=== PATIENT | female | born 1940 | race Caucasian/White ===

== ENCOUNTER 2020-12-09 23:25 | Observation (INO) ==
[2020-12-10] MEDS ORDERED: ONDANSETRON INJ 2 MG/ML 2 ML VIAL IV STA (01:04)
[2020-12-10 01:13] LABS: Basophils # (auto) 0.02 K/uL (0-0.2); Basophils % (auto) 0.3 %; Eosinophils # (auto) 0.13 K/uL (0-0.5); Eosinophils % (auto) 2.1 %; Hematocrit (blood only) 44.7 % (37-47); Lymphocytes # (auto) 2.88 K/uL (1.2-3.4); Mean Corpuscular Hemoglobin 29.9 pg (25-34); Mean Corpuscular Hgb Conc 33.6 g/dL (32-36); Mean Corpuscular Volume 89.2 fL (80-100); Mean Platelet Volume 10.6 fL (7.4-10.4); Monocytes # (auto) 0.38 K/uL (0.11-0.59); Monocytes % (auto) 6.2 %; Neutrophils # (auto) 2.72 K/uL (1.4-6.5); Neutrophils % (auto) 44.4 %; Platelet Count 180 K/uL (130-400); RDW Coefficient of Variation 13.6 % (11.5-14.5); RDW Standard Deviation 44.5 fL (36.4-46.3); Red Blood Count 5.01 M/uL (4.2-5.4); White Blood Count 6.13 K/uL (4.8-10.8)
[2020-12-10] MEDS ORDERED: SODIUM CHLORIDE 0.9% 1000ML 1,000 ML IV ONE (01:26)
[2020-12-10 01:27] LABS: BUN Creatinine Ratio 27.2 (10-20); Blood Urea Nitrogen 21 mg/dl (7-18); Calcium 9.3 mg/dl (8.5-10.1); Carbon Dioxide 29 mmol/L (21-32); Chloride 107 mmol/L (98-107); Creatinine Clr Calc Pharmacy 53.6 ml/min; Est GFR (African American) 82.6 ml/min; Est GFR (Non-African American) 71.3 ml/min; Glucose 119 mg/dl (70-99); Potassium 3.6 mmol/L (3.5-5.1); Sodium 139 mmol/L (136-145)
--- NOTE | 2020-12-10 01:30 | Emergency Department Note ---
Impression & Plan Syncope and collapse, Vertigo ED Provider Note Name: NANDINI CLEMENTE Age: 80 Sex: F Arrives Via: Ambulance Informant: Patient, ED Provider: Bobo Bundy MD Chief Complaint: syncope Impression: Syncope and Collapse Vertigo Medical Decision Makin yr old pleasant female with dementia arrives with continued nausea & vomiting with episode syncope/collapse this evening. Initial exam with some nystagmus. Continued nausea and given further zofran, ativan, meclizine to finally get symptoms under better control. Labs unremarkable and no clear evidence ACS. no sob, hypoxia, nor tachy thus I feel PE unlikely. No overt findings of sepsis. With persistent symptoms and history will need further rule out and evaluation. Prior Medical Record and Triage/Nursing Notes reviewed by Me Additional history obtained from chart/ Differentials:Benign positional vertigo, dehydration, hypovolemia, anemia, tumor, infection, hypoglycemia, electrolyte abnormalities, cardiac sources, intracerebral event, toxicologic, neurologic, as well as other pathologies. Vital Signs: reviewed and remarkable for no significant abnormalities Interventions: saline lock, zofran iv, ativan iv, meclizine iv, nss bolus Labs:Reviewed and remarkable for no significant abnormalities Imaging:X ray results are stated below per my interpretation: Chest: 1 view: No infiltrate, no effusion, normal cardiac border. [facility] Radiologist interpretation reviewed by me: CT head/cervical: Negative acute findings EKG:Per My Interpretation: Indication Syncope: NSR 65 bpm, qtc 465. No Ectopy. No Ischemia though somewhat diffuse ST depressions mildly noted. Compared to EKG lateral ST depressions new, no significant changes. Cardiac/Tele Monitoring: Cardiac Monitoring: An Order was placed for continuous cardiac monitoring. The monitor shows a rate of 60 with a normal sinus rhythm. Consults: Hospitalist Plan: Disposition: Discharged.Home. Condition: Good History of Present Illness:80 yr old female arrives for evaluation of syncope. Patient was with on the couch when she stated she was dizzy. She got up from couch, went in to bathroom and collapse. found her on the floor minimally responsive though started coming too quickly. She lost bladder control. EMS arrived and she was awake and oriented. She was given 4mg IV zofran with improvement, then another 4mg here with resolution of symptoms. She states she feels well currently. Denies headache, neck pain, sob, chest pain, back pain, abdominal pain, urinary/bowel symptoms, leg swelling, diarrhea, nor other symptoms. She had the same egg salad sandwiche had earlier without him having symptoms. She currently denies any symptoms. Denies new medications. She is on Plavix for CAD with stents from several years ago. ROS: See above HPI for pertinent positives & negatives. A total of 10 systems reviewed and were otherwise negative. Past Medical History:CAD, HLP, Dementia, HTN Past Surgical History:Cardiac stents Family History:See Below Social History:See Below Home Medications:See Below Allergies:PNC Vitals:Blood Pressure: 143/79, Pulse 66, RR 15, T 36.5C, O2 97% on RA Physical Exam: GENERAL: Patient is elderly appearing and in no acute distress. HEAD: AT/NC EYES: No scleral icterus, unremarkable pupils. ENT: Mucous membranes moist, no nasal congestion. NECK: No masses appreciated, nomeningismus, trachea is midline. RESPIRATORY: No dyspnea. Clear to auscultation and equal bilaterally. No wheeze, no rhonchi. CARDIOVASCULAR: Regular rate and rhythm.No murmurs, rubs, gallops appreciated. GASTROINTESTINAL: Abdomen soft, non-tender, no peritonitis.Bowel sounds positive.No masses appreciated. BACK: No midline tenderness, no CVA tenderness EXTREMITIES: Normal motion all extremities, no cyanosis, no edema. NEUROLOGIC: Bilateral horizontal nystagmus. Alert and oriented with mild dementia, no acute motor or sensory deficits, no focal weakness, cranial nerves grossly intact. SKIN: No rash, no jaundice, no diaphoresis. PSYCH: Appropriate GCS: 15 ED Course: Times/Reassessments: gradually improving vertigo though still unable to move without nausea Bobo Bundy MD Past Med/Surg History Social History Smoking Status: Never smoker Hx Alcohol Use: No Hx Substance Use: No Preferred Language: Mohawk Communication Ability: Effective Machine Precision Etcher Required: Voice Beliefs That Will Affect Care: None marital status: Current Living Situation: Spouse Current Living Situation Comment: live with How many Children do You have: 0 Other Information That Helps Us Care for You: No Feels Safe at Home: Yes Safety Concerns: Feels Safe At This Time Assistive Devices: None Allergies Allergies Allergy/AdvReac Type Severity Reaction Status Date / Time Penicillins Allergy Unknown SWELLING Verified 12/09/20 23:46 Home Meds Home Medications Medication Instructions Recorded Confirmed atorvastatin 40 mg tablet 40 mg PO HS 12/09/20 12/09/20 clopidogrel 75 mg tablet 75 mg PO DAILY 12/09/20 12/09/20 donepezil 5 mg tablet 5 mg PO DAILY 12/09/20 12/09/20 metoprolol tartrate 50 mg tablet 50 mg PO BID 12/09/20 12/09/20 Results & Data (ED) Vital Signs Vital Signs - 24 hr 12/09/20 23:31 12/10/20 00:04 12/10/20 00:07 Temperature 36.5 C Temperature Source Oral Pulse Rate 65 Pulse Rate [Apical] 66 Respiratory Rate 18 15 Respiratory Effort / Characteristics Non-Labored Spontaneous Non-Labored Respiratory Depth Normal Normal Respiratory Pattern Regular Blood Pressure 129/68 Blood Pressure [Right Arm] 143/79 H Blood Pressure Mean 88 Blood Pressure Mean [Right Arm] 100 Blood Pressure Position Lying Blood Pressure Position [Right Arm] Sitting Pulse Oximetry 95 97 Oxygen Delivery Method Room Air Room Air Room Air Sepsis Recent Fever Within 48 Hours No Sepsis New/Unexplained Change in Mental Status No Sepsis Action Taken by Nursing No Action Required Laboratory Data Result diagrams: 12/09/20 23:05 12/09/20 23:05 Lab Results 12/09/20 12/09/20 12/10/20 Range/Units 23:05 23:05 02:00 WBC 6.13 (4.8-10.8) K/uL RBC 5.01 (4.2-5.4) M/uL Hgb 15.0 (12.0-16.0) g/dL Hct 44.7 (37-47) % MCV 89.2 (80-100) fL MCH 29.9 (25-34) pg MCHC 33.6 (32-36) g/dL RDW Std Deviation 44.5 (36.4-46.3) fL RDW Coeff of Miller 13.6 (11.5-14.5) % Plt Count 180 (130-400) K/uL MPV 10.6 H (7.4-10.4) fL Immature Gran % (Auto) 0.0 % Neut % (Auto) 44.4 % Lymph % (Auto) 47.0 % [place] % (Auto) 6.2 % Eos % (Auto) 2.1 % Baso % (Auto) 0.3 % Neut # (Auto) 2.72 (1.4-6.5) K/uL Lymph # (Auto) 2.88 (1.2-3.4) K/uL [place] # (Auto) 0.38 (0.11-0.59) K/uL Eos # (Auto) 0.13 (0-0.5) K/uL Baso # (Auto) 0.02 (0-0.2) K/uL Immature Gran # (Auto) 0.00 (0.00-0.02) K/uL Sodium 139 (136-145) mmol/L Potassium 3.6 (3.5-5.1) mmol/L Chloride 107 (98-107) mmol/L Carbon Dioxide 29 (21-32) mmol/L Anion Gap 3.0 (3-11) BUN 21 H (7-18) mg/dl Creatinine 0.78 (0.6-1.2) mg/dl Est Cr Clr Drug Dosing 53.6 ml/min Est GFR ( Amer) 82.6 ml/min Est GFR (Non-Af Amer) 71.3 ml/min BUN/Creatinine Ratio 27.2 H (10-20) Glucose 119 H (70-99) mg/dl Calcium 9.3 (8.5-10.1) mg/dl Total Bilirubin 0.4 (0.2-1) mg/dl AST 29 (15-37) U/L ALT 41 (12-78) U/L Alkaline Phosphatase 89 (45-117) U/L Troponin I < 0.015 (0-0.045) ng/ml Total Protein 7.6 (6.4-8.2) gm/dl Albumin 4.0 (3.4-5.0) gm/dl Globulin 3.6 (2.5-4.0) gm/dl Albumin/Globulin Ratio 1.1 (0.9-2) COVID-19 Eval Order Covid19 at [facility] SARS-CoV-2 (PCR) (Negative) 12/10/20 Range/Units 02:00 WBC (4.8-10.8) K/uL RBC (4.2-5.4) M/uL Hgb (12.0-16.0) g/dL Hct (37-47) % MCV (80-100) fL MCH (25-34) pg MCHC (32-36) g/dL RDW Std Deviation (36.4-46.3) fL RDW Coeff of Miller (11.5-14.5) % Plt Count (130-400) K/uL MPV (7.4-10.4) fL Immature Gran % (Auto) % Neut % (Auto) % Lymph % (Auto) % [place] % (Auto) % Eos % (Auto) % Baso % (Auto) % Neut # (Auto) (1.4-6.5) K/uL Lymph # (Auto) (1.2-3.4) K/uL [place] # (Auto) (0.11-0.59) K/uL Eos # (Auto) (0-0.5) K/uL Baso # (Auto) (0-0.2) K/uL Immature Gran # (Auto) (0.00-0.02) K/uL Sodium (136-145) mmol/L Potassium (3.5-5.1) mmol/L Chloride (98-107) mmol/L Carbon Dioxide (21-32) mmol/L Anion Gap (3-11) BUN (7-18) mg/dl Creatinine (0.6-1.2) mg/dl Est Cr Clr Drug Dosing ml/min Est GFR ( Amer) ml/min Est GFR (Non-Af Amer) ml/min BUN/Creatinine Ratio (10-20) Glucose (70-99) mg/dl Calcium (8.5-10.1) mg/dl Total Bilirubin (0.2-1) mg/dl AST (15-37) U/L ALT (12-78) U/L Alkaline Phosphatase (45-117) U/L Troponin I (0-0.045) ng/ml Total Protein (6.4-8.2) gm/dl Albumin (3.4-5.0) gm/dl Globulin (2.5-4.0) gm/dl Albumin/Globulin Ratio (0.9-2) COVID-19 Eval Order SARS-CoV-2 (PCR) NEGATIVE (Negative) Administered Medications Atorvastatin Calcium (Atorvastatin 40 Mg Tab) 40 mg PO HS SANJUANA Stop: 01/09/21 20:59 Last Admin: 12/10/20 20:34 Dose: 40 mg Documented by: [id number] Clopidogrel Bisulfate (Clopidogrel Bisulfate 75 Mg Tab) 75 mg PO DAILY SANJUANA Stop: 01/09/21 08:59 Last Admin: 12/10/20 10:08 Dose: 75 mg Documented by: [id number] Heparin Sodium (Porcine) (Heparin Sod 5,000 Unit/0.5 Ml Vial) 5,000 units SQ Q12 SANJUANA Stop: 01/09/21 08:59 Last Admin: 12/10/20 20:34 Dose: 5,000 units Documented by: [id number] Admin: 12/10/20 10:09 Dose: 5,000 units Documented by: [id number] Sodium Chloride (Nss 1000ml) 1,000 mls @ 80 mls/hr IV .[id number] ASNJUANA Stop: 01/09/21 08:04 Last Admin: 12/10/20 22:52 Dose: 80 mls/hr Documented by: [id number] Infusion: 12/10/20 22:36 Dose: 80 mls/hr Documented by: [id number] Admin: 12/10/20 10:06 Dose: 80 mls/hr Documented by: [id number] Meclizine HCl (Meclizine 12.5 Mg Tab) 12.5 mg PO TID PRN PRN Reason: Dizziness or Vertigo Stop: 01/09/21 08:04 Last Admin: 12/10/20 10:09 Dose: 12.5 mg Documented by: [id number] Metoprolol Tartrate (Metoprolol Tartrate 50 Mg Tab) 50 mg PO BID [facility] Stop: 01/09/21 08:59 Last Admin: 12/10/20 20:34 Dose: 50 mg Documented by: [id number] Admin: 12/10/20 10:09 Dose: 50 mg Documented by: [id number] Discontinued Medications Donepezil HCl (Donepezil Hcl 5 Mg Tab) 5 mg PO DAILY [facility] Stop: 01/09/21 08:59 Last Admin: 12/10/20 10:09 Dose: 5 mg Documented by: [id number] Gadobutrol (Gadobutrol 65ml Vial) 6.5 ml IV ONCE ONE Stop: 12/10/20 13:06 Last Admin: 12/10/20 13:05 Dose: 6.5 ml Documented by: [id number] Sodium Chloride (Nss 1000ml) 1,000 mls @ 999 mls/hr IV .Q1H1M ONE Stop: 12/10/20 02:26 Last Infusion: 12/10/20 03:00 Dose: 0 mls/hr Documented by: [id number] Admin: 12/10/20 01:51 Dose: 999 mls/hr Documented by: [id number] Lorazepam (Ativan) 0.5 mg in 1 mls @ 1 mls/min IV NOW STA Stop: 12/10/20 02:23 Last Admin: 12/10/20 02:36 Dose: 1 mls/min Documented by: [id number] Meclizine HCl (Meclizine Hcl 25 Mg Tab) 12.5 mg PO NOW STA Stop: 12/10/20 02:23 Last Admin: 12/10/20 02:36 Dose: 12.5 mg Documented by: [id number] Ondansetron HCl (Ondansetron Inj 2 Mg/Ml 2 Ml Vial) 4 mg IV NOW STA Stop: 12/10/20 01:05 Last Admin: 12/10/20 01:51 Dose: 4 mg Documented by: [id number] Discharge Plan Visit Data Chief Complaint: Dizziness Stated Complaint: DIZZY/SYNCOPE ED Provider: Bobo Bundy Discharge Problem: Syncope and collapse, Vertigo Patient Disposition: Admitted As Inpatient Discharge Instructions Interventions: ED Discharge Assessment Last Done: 12/10/20 07:30
[2020-12-10 01:32] LABS: Alanine Aminotransferase 41 U/L (12-78); Albumin Globulin Ratio 1.1 (0.9-2); Alkaline Phosphatase 89 U/L (45-117); Aspartate Aminotransferase 29 U/L (15-37); Bilirubin,Total 0.4 mg/dl (0.2-1); Globulin 3.6 gm/dl (2.5-4.0); Total Protein 7.6 gm/dl (6.4-8.2)
[2020-12-10 02:10] LABS: Troponin I < 0.015 ng/ml (0-0.045)
[2020-12-10] MEDS ORDERED: LORazepam 0.5 MG/1 ML VIAL IV STA (02:22)
[2020-12-10] MEDS ORDERED: MECLIZINE HCL 25 MG TAB PO STA (02:22)
--- NOTE | 2020-12-10 06:40 | CT Scan Report ---
CT OF THE HEAD WITHOUT CONTRAST CLINICAL HISTORY: syncope COMPARISON STUDY: No previous studies for comparison. CT DOSE: 911.45 mGy.cm TECHNIQUE: Helical axial images of the head were obtained without IV contrast. Automated exposure con trol was utilized for the study. A dose lowering technique was utilized adhering to the principles o f ALARA. FINDINGS: No acute intracranial hemorrhage, midline shift or mass effect is present. Ventricular dila tation is due to atrophy. The basal cisterns are patent. No extra-axial collections are present. Ther e are no findings to suggest acute dural sinus thrombosis or acute territorial infarct. No significan t calvarial abnormalities are present. Visualized portions of the sinuses and mastoid air cells are c lear. IMPRESSION: No acute intracranial findings. ACT 112: Negative or not required by law. Electronically signed by: Neo Brock M.D. 12/10/2020 6:39 AM
--- NOTE | 2020-12-10 06:53 | History and Physical Report ---
DATE OF ADMISSION: 12/10/2020. CHIEF COMPLAINT: Dizziness and fall. 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 The patient received Ativan and meclizine in the ER and currently somewhat sleepy. As per , the patient was watching TV and she told him that she was feeling dizzy and she went to sleep to her bedroom. On the way to the bedroom, in the bedroom she had her fall and he went and saw her, she was on the ground. No loss of consciousness, and she vomited at that time and also she had a bowel movement. EMS was called and brought in here. Her CT of the head and CT of the cervical spine are okay and currently hemodynamics are stable. As per , there are no complaints of chest pain or shortness of breath. No cough, no fevers, no headaches, no neck pains, no nausea, no abdominal pain, no diarrhea or constipation, or blood in stools or black stools. No hematuria. No swelling in the legs, no rash. She ambulates okay at home otherwise. Eats regular food and swallows okay. The patient when she woke up could tell her name, does not know where she is. Could not tell her date of . As per , the patient is generally oriented to name and place, but has issues with memory. ALLERGIES: PENICILLINS. PAST MEDICAL HISTORY: As mentioned above. PAST SURGICAL HISTORY: Cardiac catheterization with angioplasty, colonoscopy, exploratory laparotomy with lysis of adhesions, release of small-bowel obstruction, repair of umbilical hernia, hemorrhoidectomy, laparoscopic cholecystectomy, back surgery, laparoscopic hernia repair, ligation of oviducts, proctosigmoidoscopy, reconstruction of nose, appendectomy, repair of recurrent inguinal hernia. MEDICATIONS: The patient is on atorvastatin 40 mg p.o. at bedtime, Plavix 75 mg p.o. daily, donepezil 5 mg p.o. daily, metoprolol tartrate 50 mg p.o. b.i.d. FAMILY HISTORY: Significant for father had at age of 61 with pituitary tumor; mother had osteoporosis. SOCIAL HISTORY: , former smoker, quit in 1991, smoked 2 packs a day for 15 years. Alcohol, a glass of wine at night. No drug use. REVIEW OF SYSTEMS: As per HPI. Rest of the review of systems is negative. PHYSICAL EXAMINATION: GENERAL: The patient is old and frail, not in acute distress. VITAL SIGNS: Temperature 36.5, pulse 68, respiratory rate 16, blood pressure 105/86, oxygen 98% on room air. HEENT: No pallor, no icterus. Pupils equal, round and reactive to light. Oral mucosa moist. NECK: No JVD, no neck masses, no carotid bruits. CARDIOVASCULAR: S1 and S2 heard. Regular rate and rhythm. No murmur, no gallop. RESPIRATORY SYSTEM: Normal AP diameter. No accessory muscle use. No wheezing, no crackles. ABDOMEN: Soft, bowel sounds present, nontender, no distention. CENTRAL NERVOUS SYSTEM: Alert and oriented to name currently. Speech is clear. No facial droop. Obeys simple commands. Strength 5/5 in all extremities. Coordination of movements normal. No pronator drift. Could not do complete exam as the patient is somewhat hard of hearing and has dementia and got Ativan in the ER. EXTREMITIES: No edema, no erythema. LABORATORY DATA: WBC 6.1, hemoglobin 15, hematocrit 44.7, platelets 180. Sodium 139, potassium 3.6, chloride 107, bicarbonate 29, BUN 21, creatinine 0.7, serum glucose 119, calcium 9.3, total bilirubin 0.4, AST 29, ALT 41, alkaline phosphatase 89. Troponin I less than 0.015. SARS-CoV-2 PCR negative. IMAGING DATA: CT of the head, preliminary report unremarkable. Cervical spine CT is unremarkable. Chest x-ray unremarkable. EKG: Normal sinus rhythm at a rate of 65, nonspecific ST changes. ASSESSMENT AND PLAN: This is an 80-year-old female who presents with dizziness and fall. 1. Dizziness and fall, and also the patient had episode of vomiting and bowel movement during the episode. As per the , she was somewhat confused for some time. Currently is somewhat sedated because she received Ativan. Initial workup with CT of the head and EKG and hemodynamics are unremarkable. As per the , the patient was somewhat shaky in the ER as she was dehydrated with the vomiting and bowel movement and after fluids she was fine. We will get an MRI of the head and also rule out seizures with EEG. We will also get an echo for rule out of syncope and monitor in the med tele and neurology consult in the a.m. and PT/OT when stable. Continue IV fluids and follow orthostatics. 2. History of coronary artery disease: Continue her Plavix, statin, and beta capo. 3. Dementia: On donepezil. Monitor for any delirium. 4. Hyperlipidemia: On statin. 5. Deep venous thrombosis prophylaxis: Heparin subcu. DISPOSITION: Closely monitor in the med rec. PT/OT prior to discharge. Social service to help with discharge planning. Level 1 full code. Job ID: [id number] MTDD
--- NOTE | 2020-12-10 07:04 | XRay Report ---
XR chest 1V portable CLINICAL HISTORY: dizziness COMPARISON STUDY: Chest radiograph August 27, 2012. Chest CT August 28, 2012 FINDINGS: Lung volumes are normal. Mild bilateral lower lung opacity favors atelectasis or scarring. There is no pneumothorax or pleural effusion. Cardiac size is normal. Mediastinal contours are normal . There is no evidence for pulmonary edema. Old right clavicular fracture is incidentally noted. IMPRESSION: No acute cardiopulmonary findings. ACT 112: Negative or not required by law. Electronically signed by: Neo Brock M.D. 12/10/2020 7:03 AM
--- NOTE | 2020-12-10 07:10 | CT Scan Report ---
CT OF THE CERVICAL SPINE WITHOUT CONTRAST CLINICAL HISTORY: syncope, head injury COMPARISON STUDY: No previous studies for comparison. TECHNIQUE: Helical axial images of the cervical spine were obtained without IV contrast. Sagittal a nd coronal reconstructions were viewed. Automated exposure control was utilized for the study. A do se lowering technique was utilized adhering to the principles of ALARA. FINDINGS: Alignment of the cervical spine is anatomic. Vertebral body heights are maintained. No acut e cervical spine fracture or subluxation is present. There is no prevertebral edema. Facet joints are intact. Note is made of severe disc space narrowing at C5-C6. There is moderate to severe multileve l facet arthrosis. Suspected biapical scarring within the lungs is partially imaged. IMPRESSION: No acute cervical spine fracture or subluxation. ACT 112: Negative or not required by law. Electronically signed by: Neo Brock M.D. 12/10/2020 7:09 AM
[2020-12-10] MEDS ORDERED: NITROGLYCERIN SL 0.4 MG/TAB TAB SL PRN (08:05)
[2020-12-10] MEDS ORDERED: LORazepam 1 MG/2 ML VIAL IV PRN (08:05)
[2020-12-10] MEDS ORDERED: ONDANSETRON INJ 2 MG/ML 2 ML VIAL IV PRN (08:05)
[2020-12-10] MEDS ORDERED: MECLIZINE 12.5 MG TAB PO PRN (08:05)
[2020-12-10] MEDS ORDERED: ACETAMINOPHEN 325 MG TAB PO PRN (08:05)
[2020-12-10] MEDS ORDERED: POLYETHYLENE (MIRALAX) 17 GM PACK PO PRN (08:05)
--- NOTE | 2020-12-10 08:55 | Electrocardiogram Report ---
Test Reason : Blood Pressure : / mmHG Vent. Rate : 065 BPM Atrial Rate : 065 BPM P-R Int : 188 ms QRS Dur : 074 ms QT Int : 448 ms P-R-T Axes : 055 052 097 degrees QTc Int : 465 ms Normal sinus rhythm Diffuse Nonspecific ST and T wave abnormality Abnormal ECG When compared with ECG of 12-SEP-2013 22:50, Nonspecific T wave abnormality now evident in Inferior leads Nonspecific T wave abnormality, worse in Anterolateral leads Nonspecific ST abnormality now present Confirmed by Alejandro Concepcion ([id number] on 12/10/2020 8:54:52 AM Referred By: REFERRED SELF Confirmed By:Alejandro Concepcion
[2020-12-10] MEDS ORDERED: DONEPEZIL HCL 5 MG TAB PO SCH (09:00)
[2020-12-10] MEDS: SODIUM CHLORIDE 0.9% 1000ML 1,000 ML IV SCH ×2 (10:06→22:52)
[2020-12-10] MEDS: CLOPIDOGREL BISULFATE 75 MG TAB PO SCH (10:08)
[2020-12-10] MEDS: HEPARIN SOD 5,000 UNIT/0.5 ML VIAL SQ SCH ×2 (10:09→20:34)
[2020-12-10] MEDS: METOPROLOL TARTRATE 50 MG TAB PO SCH ×2 (10:09→20:34)
[2020-12-10] MEDS ORDERED: GADOBUTROL 65ML VIAL IV ONE (13:05)
--- NOTE | 2020-12-10 13:06 | Neurology Consultation ---
Date of Consultation December 10, 2020 Assessment & Plan (1) Dizziness of unknown cause: 1. EEG- no seizure focus 2. may have been increase in Aricept - stop medication for now 3. MRI brain- no stroke or acute abnormalities 4. TTE pending- r/o cardiac source no further work up from neurology stand point, may discharge when medically stable. will follow up in neurology in 4-6 weeks. (2) Dementia: 1. stop aricept for now will reevaluate in office follow up 2. at baseline confusion per (3) Fall: 1. as above as above Supervising Physician Co-Signing Physician Notes Patient was seen and examined this afternoon. Her is sitting at bedside. Patient is currently without complaint. She reports feeling okay and denies pain. She ambulated to the restroom with assistance. Discussed with patient's that she reported feeling dizzy while laying down then got up to go to the bathroom and was found down and minimally responsive with incontinence to stool and urine. She did not bite her tongue. On examination she is currently back to her baseline with known cognitive deficits. There is no abrasion on her tongue. This patient is known to our practice. Recommend stopping Aricept for now. Unclear if this was an adverse side effect or GI side effects from the increased dose of Aricept. I did review her EEG and it showed mild diffuse slowing without epileptiform activity or focal slowing. Clinical history devoid of any features to suggest that this was a TIA or stroke. MRI of the brain is reassuring and there is no evidence of acute intracranial hemorrhage, mass, or stroke. Chronic changes noted on her MRI consistent with known dementia. Will defer to physical therapy/Occupational Therapy for any rehabilitation needs. Otherwise patient can follow-up with neurology on an outpatient. Please contact us with any additional questions or concerns. History of Present Illness Reason for Consultation: dizziness Requesting Physician: Gissell Bee MD Attending Physician: Gissell Bee MD History of Present Illness Tucker is a 80 year old female with PMH- CAD, HLD, GERD, osteoporosis, history of basal cell carcinoma, history of tinnitus, history of vascular dementia without behavioral disturbance, mild cognitive impairment, who lives with her . she presented to [facility] ED 12/10/2020 with dizziness and fall. She received Ativan and meclizine in the ED. She was watching TV and she told him that she was feeling dizzy and she went to her bedroom. In the bedroom he heard fall and went in and saw her, she was on the floor. No loss of consciousness, but she vomited and had a bowel movement. Her CT of the head and CT of the cervical spine are okay and currently hemodynamics are stable. She was last seen in our office for dementia on 12/03/2020 and her Aricept was increased from 5 mg to 10 mg. had given the 10 mg that evening. She is currently back to her baseline confusion. denies CP, SOB, abdominal pain, one sided weakness numbness tingling, additional N, V. Allergies Allergy/AdvReac Type Severity Reaction Status Date / Time Penicillins Allergy Unknown SWELLING Verified 12/09/20 23:46 Home Medications Medication Instructions Recorded Confirmed Type atorvastatin 40 mg tablet 40 mg PO HS 12/09/20 12/09/20 History clopidogrel 75 mg tablet 75 mg PO DAILY 12/09/20 12/09/20 History donepezil 5 mg tablet 5 mg PO DAILY 12/09/20 12/09/20 History metoprolol tartrate 50 mg tablet 50 mg PO BID 12/09/20 12/09/20 History Patient History Social History Smoking Status: Never smoker Hx Alcohol Use: No Hx Substance Use: No Preferred Language: Moldovan Communication Ability: Effective Senior Qa Tester Required: Voice Beliefs That Will Affect Care: None marital status: Current Living Situation: Spouse Current Living Situation Comment: live with How many Children do You have: 0 Other Information That Helps Us Care for You: No Feels Safe at Home: Yes Safety Concerns: Feels Safe At This Time Review of Systems Review of Systems: All systems reviewed & are unremarkable except as noted in HPI & below Physical Exam Physical Exam: Physical Exam: Constitutional: appearance over nourished, healthy and normal Ears, Nose, Mouth and Throat: mucous membranes moist, no injection and skin normal, eyes normal Cardiovascular: normal S-1 and S-2 and regular rate and rhythm Respiratory: clear to auscultation (CTA) and no rales, rhonchi or wheeze Musculoskeletal: no peripheral edema and good distal pulses Skin: no stigmata of neurocutaneous disease noted and normal and intact Eyes: extraocular muscles intact (EOMI) and pupils equal, round and reactive to light (PERRL) NEUROLOGIC EXAMINATION: Mental status: Alert and interactive Oriented to person Speech fluent with no evidence of aphasia Cranial Nerves smile eye brow raise symmetric Sensory: no sensory deficits, light and cool touch Gait/Stance: Posture lying in bed Gait normal: with steady with steps, base, tandem gait. 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 Mild bilateral lower lung opacity favors atelectasis or scarring. There is no pneumothorax or pleural effusion. Cardiac size is normal. Mediastinal contours are normal. There is no evidence for pulmonary edema. Old right clavicular fracture is incidentally noted. CT neck-Alignment of the cervical spine is anatomic. Vertebral body heights are maintained. No acute cervical spine fracture or subluxation is present. There is no prevertebral edema. Facet joints are intact. Note is made of severe disc space narrowing at C5-C6. There is moderate to severe multilevel facet arthrosis. Suspected biapical scarring within the lungs is partially imaged. CT head-No acute intracranial hemorrhage, midline shift or mass effect is present. Ventricular dilatation is due to atrophy. The basal cisterns are patent. No extra-axial collections are present. There are no findings to suggest acute dural sinus thrombosis or acute territorial infarct. No significant casi varial abnormalities are present. Visualized portions of the sinuses and mastoid air cells are clear. MRI brain-No acute intracranial hemorrhage, no midline shift or space occupying lesions. no evidence of restricted diffusion to suggest acute ischemia/infarct. Chronic small vessel ischemia. Diffuse atrophic changes of brain parenchyma associated with ex vacuo dilatation of ventricles. This is an abnormal awake and drowsy routine EEG due to mild generalized background slowing suggestive of a mild nonspecific encephalopathy. There is no evidence of focal slowing or epileptiform activity.
--- NOTE | 2020-12-10 13:41 | Magnetic Resonance Report ---
MRI OF THE BRAIN WITHOUT AND WITH IV CONTRAST CLINICAL HISTORY: dizziness/fall COMPARISON STUDY: No previous studies for comparison. TECHNIQUE: MRI of the brain was performed from the vertex to the skull base utilizing various T1 and T2 weighted sequences. Following the IV administration of 6.5 mL of Gadavist contrast, additional enh anced images were obtained. FINDINGS: Sagittal T1, axial diffusion, proton density and T2 weighted axial, coronal FLAIR, and pre and post a xial T1-weighted images were acquired. These were supplemented with post gadolinium coronal T1 weight ed images. No intra or extra-axial mass lesions are visualized. Axial diffusion-weighted images reveal no evidence of acute or subacute infarction. Atrophic changes of brain parenchyma are seen and associated with ex vacuo dilatation of ventricles. Proton density T2-weighted and FLAIR images reveal scattered foci of increased T2 signal within the w isaac matter, likely on a small vessel basis. There are no abnormal flow voids. There is no evidence of pathologic enhancement. IMPRESSION: No acute intracranial hemorrhage, no midline shift or space occupying lesions. No evidence of restricted diffusion to suggest acute ischemia/infarct. Chronic small vessel ischemia. Diffuse atrophic changes of brain parenchyma associated with ex vacuo dilatation of ventricles. ACT 112: Negative or not required by law. The above report was generated using voice recognition software. It may contain grammatical, syntax o r spelling errors. Electronically signed by: Mariangel Colin DO 12/10/2020 1:40 PM
--- NOTE | 2020-12-10 14:24 | Electroencephalogram ---
EEG Procedure Note Date of Service December 10, 2020 Home Medication List Medication Instructions Recorded Confirmed Type atorvastatin 40 mg tablet 40 mg PO HS 12/09/20 12/09/20 History clopidogrel 75 mg tablet 75 mg PO DAILY 12/09/20 12/09/20 History donepezil 5 mg tablet 5 mg PO DAILY 12/09/20 12/09/20 History metoprolol tartrate 50 mg tablet 50 mg PO BID 12/09/20 12/09/20 History Inpatient Medication List Clopidogrel Bisulfate (Clopidogrel Bisulfate 75 Mg Tab) 75 mg PO DAILY [facility] Stop: 01/09/21 08:59 Last Admin: 12/10/20 10:08 Dose: 75 mg Documented by: [id number] Donepezil HCl (Donepezil Hcl 5 Mg Tab) 5 mg PO DAILY [facility] Stop: 01/09/21 08:59 Last Admin: 12/10/20 10:09 Dose: 5 mg Documented by: [id number] Heparin Sodium (Porcine) (Heparin Sod 5,000 Unit/0.5 Ml Vial) 5,000 units SQ Q12 [facility] Stop: 01/09/21 08:59 Last Admin: 12/10/20 10:09 Dose: 5,000 units Documented by: [id number] Sodium Chloride (Nss 1000ml) 1,000 mls @ 80 mls/hr IV .[id number] [facility] Stop: 01/09/21 08:04 Last Admin: 12/10/20 10:06 Dose: 80 mls/hr Documented by: [id number] Meclizine HCl (Meclizine 12.5 Mg Tab) 12.5 mg PO TID PRN PRN Reason: Dizziness or Vertigo Stop: 01/09/21 08:04 Last Admin: 12/10/20 10:09 Dose: 12.5 mg Documented by: [id number] Metoprolol Tartrate (Metoprolol Tartrate 50 Mg Tab) 50 mg PO BID [facility] Stop: 01/09/21 08:59 Last Admin: 12/10/20 10:09 Dose: 50 mg Documented by: [id number] Discontinued Medications Gadobutrol (Gadobutrol 65ml Vial) 6.5 ml IV ONCE ONE Stop: 12/10/20 13:06 Last Admin: 12/10/20 13:05 Dose: 6.5 ml Documented by: [id number] Sodium Chloride (Nss 1000ml) 1,000 mls @ 999 mls/hr IV .Q1H1M ONE Stop: 12/10/20 02:26 Last Infusion: 12/10/20 03:00 Dose: 0 mls/hr Documented by: [id number] Admin: 12/10/20 01:51 Dose: 999 mls/hr Documented by: [id number] Lorazepam (Ativan) 0.5 mg in 1 mls @ 1 mls/min IV NOW STA Stop: 12/10/20 02:23 Last Admin: 12/10/20 02:36 Dose: 1 mls/min Documented by: [id number] Meclizine HCl (Meclizine Hcl 25 Mg Tab) 12.5 mg PO NOW STA Stop: 12/10/20 02:23 Last Admin: 12/10/20 02:36 Dose: 12.5 mg Documented by: [id number] Ondansetron HCl (Ondansetron Inj 2 Mg/Ml 2 Ml Vial) 4 mg IV NOW STA Stop: 12/10/20 01:05 Last Admin: 12/10/20 01:51 Dose: 4 mg Documented by: [id number] Description This is a 21 electrode EEG with a single channel dedicated to limited EKG. The electrodes were placed in accordance with the International 10-20 system. REPORT: At the onset of the EEG the patient is awake. The background is symmetric and predominantly consist of 7-8 Hz theta activity. Photic stimulation does not induce any abnormalities. Drowsiness is characterized by increased theta activity, reduced blink rate, and decreased myogenic artifact. No stage 2 sleep transients are recorded. No epileptiform discharges are recorded. IMPRESSION: This is an abnormal awake and drowsy routine EEG due to mild generalized background slowing suggestive of a mild nonspecific encephalopathy. There is no evidence of focal slowing or epileptiform activity.
--- NOTE | 2020-12-10 14:25 | Electroencephalogram ---
EEG Procedure Note Date of Service December 10, 2020 Start / End Times Start Time: 10:41 End Time: 11:[address] Landon History An 80-year-old woman admitted with An episode of loss of consciousness. EEG performed evaluation epileptiform activity. Home Medication List Medication Instructions Recorded Confirmed Type atorvastatin 40 mg tablet 40 mg PO HS 12/09/20 12/09/20 History clopidogrel 75 mg tablet 75 mg PO DAILY 12/09/20 12/09/20 History donepezil 5 mg tablet 5 mg PO DAILY 12/09/20 12/09/20 History metoprolol tartrate 50 mg tablet 50 mg PO BID 12/09/20 12/09/20 History Inpatient Medication List Clopidogrel Bisulfate (Clopidogrel Bisulfate 75 Mg Tab) 75 mg PO DAILY [facility] Stop: 01/09/21 08:59 Last Admin: 12/10/20 10:08 Dose: 75 mg Documented by: [id number] Donepezil HCl (Donepezil Hcl 5 Mg Tab) 5 mg PO DAILY [facility] Stop: 01/09/21 08:59 Last Admin: 12/10/20 10:09 Dose: 5 mg Documented by: [id number] Heparin Sodium (Porcine) (Heparin Sod 5,000 Unit/0.5 Ml Vial) 5,000 units SQ Q12 [facility] Stop: 01/09/21 08:59 Last Admin: 12/10/20 10:09 Dose: 5,000 units Documented by: [id number] Sodium Chloride (Nss 1000ml) 1,000 mls @ 80 mls/hr IV .[id number] [facility] Stop: 01/09/21 08:04 Last Admin: 12/10/20 10:06 Dose: 80 mls/hr Documented by: [id number] Meclizine HCl (Meclizine 12.5 Mg Tab) 12.5 mg PO TID PRN PRN Reason: Dizziness or Vertigo Stop: 01/09/21 08:04 Last Admin: 12/10/20 10:09 Dose: 12.5 mg Documented by: [id number] Metoprolol Tartrate (Metoprolol Tartrate 50 Mg Tab) 50 mg PO BID [facility] Stop: 01/09/21 08:59 Last Admin: 12/10/20 10:09 Dose: 50 mg Documented by: [id number] Discontinued Medications Gadobutrol (Gadobutrol 65ml Vial) 6.5 ml IV ONCE ONE Stop: 12/10/20 13:06 Last Admin: 12/10/20 13:05 Dose: 6.5 ml Documented by: [id number] Sodium Chloride (Nss 1000ml) 1,000 mls @ 999 mls/hr IV .Q1H1M ONE Stop: 12/10/20 02:26 Last Infusion: 12/10/20 03:00 Dose: 0 mls/hr Documented by: [id number] Admin: 12/10/20 01:51 Dose: 999 mls/hr Documented by: [id number] Lorazepam (Ativan) 0.5 mg in 1 mls @ 1 mls/min IV NOW STA Stop: 12/10/20 02:23 Last Admin: 12/10/20 02:36 Dose: 1 mls/min Documented by: [id number] Meclizine HCl (Meclizine Hcl 25 Mg Tab) 12.5 mg PO NOW STA Stop: 12/10/20 02:23 Last Admin: 12/10/20 02:36 Dose: 12.5 mg Documented by: [id number] Ondansetron HCl (Ondansetron Inj 2 Mg/Ml 2 Ml Vial) 4 mg IV NOW STA Stop: 12/10/20 01:05 Last Admin: 12/10/20 01:51 Dose: 4 mg Documented by: [id number] Description This is a 21 electrode EEG with a single channel dedicated to limited EKG. The electrodes were placed in accordance with the International 10-20 system. REPORT: At the onset of the EEG the patient is awake. The background is symmetric and predominantly consist of 7-8 Hz theta activity. Photic stimulation does not induce any abnormalities. Drowsiness is characterized by increased theta activity, reduced blink rate, and decreased myogenic artifact. No stage 2 sleep transients are recorded. No epileptiform discharges are recorded. IMPRESSION: This is an abnormal awake and drowsy routine EEG due to mild generalized background slowing suggestive of a mild nonspecific encephalopathy. There is no evidence of focal slowing or epileptiform activity.
[2020-12-10] MEDS ORDERED: ATORVASTATIN 40 MG TAB PO SCH (21:00)
[2020-12-11 06:02] LABS: Basophils # (auto) 0.01 K/uL (0-0.2); Basophils % (auto) 0.2 %; Eosinophils # (auto) 0.08 K/uL (0-0.5); Eosinophils % (auto) 1.6 %; Hematocrit (blood only) 39.8 % (37-47); Hemoglobin 12.9 g/dL (12.0-16.0); Immature Granulocytes # (auto) 0.01 K/uL (0.00-0.02); Immature Granulocytes % (auto) 0.2 %; Lymphocytes % (auto) 31.3 %; Mean Corpuscular Hemoglobin 29.3 pg (25-34); Mean Corpuscular Hgb Conc 32.4 g/dL (32-36); Mean Corpuscular Volume 90.2 fL (80-100); Mean Platelet Volume 10.2 fL (7.4-10.4); Monocytes # (auto) 0.27 K/uL (0.11-0.59); Monocytes % (auto) 5.3 %; Neutrophils # (auto) 3.14 K/uL (1.4-6.5); Neutrophils % (auto) 61.4 %; Platelet Count 129 K/uL (130-400); RDW Coefficient of Variation 13.8 % (11.5-14.5); Red Blood Count 4.41 M/uL (4.2-5.4); White Blood Count 5.11 K/uL (4.8-10.8)
[2020-12-11 06:22] LABS: BUN Creatinine Ratio 17.4 (10-20); Calcium 8.4 mg/dl (8.5-10.1); Creatinine Clr Calc Pharmacy 62.4 ml/min; Est GFR (African American) 95.5 ml/min; Est GFR (Non-African American) 82.4 ml/min; Magnesium 2.1 mg/dl (1.8-2.4); Potassium 3.9 mmol/L (3.5-5.1)
[2020-12-11 06:50] VITALS: TEMP 98.1; O2SAT 95
[2020-12-11] MEDS: CLOPIDOGREL BISULFATE 75 MG TAB PO SCH (09:27)
[2020-12-11] MEDS: METOPROLOL TARTRATE 50 MG TAB PO SCH (09:27)
[2020-12-11] MEDS: HEPARIN SOD 5,000 UNIT/0.5 ML VIAL SQ SCH (09:27)
[2020-12-11] MEDS: SODIUM CHLORIDE 0.9% 1000ML 1,000 ML IV SCH (09:37)
[2020-12-11 15:43] VITALS: BP 168/78; PULSE 63
--- NOTE | 2020-12-26 07:49 | Discharge Summary ---
Date of Service December 11, 2020 Admission HPI Per Admitting Provider CHIEF COMPLAINT: Dizziness and fall. 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 The patient received Ativan and meclizine in the ER and currently somewhat sleepy. As per , the patient was watching TV and she told him that she was feeling dizzy and she went to sleep to her bedroom. On the way to the bedroom, in the bedroom she had her fall and he went and saw her, she was on the ground. No loss of consciousness, and she vomited at that time and also she had a bowel movement. EMS was called and brought in here. Her CT of the head and CT of the cervical spine are okay and currently hemodynamics are stable. As per , there are no complaints of chest pain or shortness of breath. No cough, no fevers, no headaches, no neck pains, no nausea, no abdominal pain, no diarrhea or constipation, or blood in stools or black stools. No hematuria. No swelling in the legs, no rash. She ambulates o naga at home otherwise. Eats regular food and swallows okay. The patient when she woke up could tell her name, does not know where she is. Could not tell her date of . As per , the patient is generally oriented to name and place, but has issues with memory. Admission Exam Per Admitting Provider GENERAL: The patient is old and frail, not in acute distress. VITAL SIGNS: Temperature 36.5, pulse 68, respiratory rate 16, blood pressure 105/86, oxygen 98% on room air. HEENT: No pallor, no icterus. Pupils equal, round and reactive to light. Oral mucosa moist. NECK: No JVD, no neck masses, no carotid bruits. CARDIOVASCULAR: S1 and S2 heard. Regular rate and rhythm. No murmur, no gallop. RESPIRATORY SYSTEM: Normal AP diameter. No accessory muscle use. No wheezing, no crackles. ABDOMEN: Soft, bowel sounds present, nontender, no distention. CENTRAL NERVOUS SYSTEM: Alert and oriented to name currently. Speech is clear. No facial droop. Obeys simple commands. Strength 5/5 in all extremities. Coordination of movements normal. No pronator drift. Could not do complete exam as the patient is somewhat hard of hearing and has dementia and got Ativan in the ER. EXTREMITIES: No edema, no erythema. Principal Diagnosis Dizziness Fall Discharge Exam General- No acute distress Head- atraumatic Eyes- PERRL, EOMI, ENT- oropharynx clear Neck- supple, no JVD Lungs- clear to auscultation Heart- regular rhythm; no murmur Abdomen- normal bowel sounds, soft, nontender Extremities- no calf tenderness Neuro- alert, oriented x 3; PERRL, EOMI; no facial palsy; no dysarthria Skin- warm & dry Discharge Data Allergies Allergy/AdvReac Type Severity Reaction Status Date / Time Penicillins Allergy Unknown SWELLING Verified 12/09/20 23:46 Consultations 12/10/20 03:12 ED Decision to Admit Stat 12/10/20 08:05 Consult Neurology Routine Ordered Studies 12/10/20 01:18 CT cervical spine wo con Urgent CT head/brain wo con Urgent 12/10/20 08:05 MR brain wo/w con Urgent MRI OF THE BRAIN WITHOUT AND WITH IV CONTRAST CLINICAL HISTORY: dizziness/fall COMPARISON STUDY: No previous studies for comparison. TECHNIQUE: MRI of the brain was performed from the vertex to the skull base utilizing various T1 and T2 weighted sequences. Following the IV administration of 6.5 mL of Gadavist contrast, additional enhanced images were obtained. FINDINGS: Sagittal T1, axial diffusion, proton density and T2 weighted axial, coronal FLAIR, and pre and post axial T1-weighted images were acquired. These were supplemented with post gadolinium coronal T1 weighted images. No intra or extra-axial mass lesions are visualized. Axial diffusion-weighted images reveal no evidence of acute or subacute infarction. Atrophic changes of brain parenchyma are seen and associated with ex vacuo dilatation of ventricles. Proton density T2-weighted and FLAIR images reveal scattered foci of increased T2 signal within the white matter, likely on a small vessel basis. There are no abnormal flow voids. There is no evidence of pathologic enhancement. IMPRESSION: No acute intracranial hemorrhage, no midline shift or space occupying lesions. No evidence of restricted diffusion to suggest acute ischemia/infarct. Chronic small vessel ischemia. Diffuse atrophic changes of brain parenchyma associated with ex vacuo dilatation of ventricles. ACT 112: Negative or not required by law. The above report was generated using voice recognition software. It may contain grammatical, syntax or spelling errors. Electronically signed by: Mariangel Colin DO 12/10/2020 1:40 PM Dictated: 12/10/20 1334Transcribed: 12/10/[address] OF THE HEAD WITHOUT CONTRAST CLINICAL HISTORY: syncope COMPARISON STUDY: No previous studies for comparison. CT DOSE: 911.45 mGy.cm TECHNIQUE: Helical axial images of the head were obtained without IV contrast. Automated exposure control was utilized for the study. A dose lowering technique was utilized adhering to the principles of ALARA. FINDINGS: No acute intracranial hemorrhage, midline shift or mass effect is present. Ventricular dilatation is due to atrophy. The basal cisterns are patent. No extra-axial collections are present. There are no findings to suggest acute dural sinus thrombosis or acute territorial infarct. No significant calvarial abnormalities are present. Visualized portions of the sinuses and mastoid air cells are clear. IMPRESSION: No acute intracranial findings. ACT 112: Negative or not required by law. Electronically signed by: Neo Brock M.D. 12/10/2020 6:39 AM Dictated: 12/10/20 0637Transcribed: 12/10/[address] OF THE CERVICAL SPINE WITHOUT CONTRAST CLINICAL HISTORY: syncope, head injury COMPARISON STUDY: No previous studies for comparison. TECHNIQUE: Helical axial images of the cervical spine were obtained without IV contrast. Sagittal and coronal reconstructions were viewed. Automated exposure control was utilized for the study. A dose lowering technique was utilized adhering to the principles of ALARA. FINDINGS: Alignment of the cervical spine is anatomic. Vertebral body heights are maintained. No acute cervical spine fracture or subluxation is present. There is no prevertebral edema. Facet joints are intact. Note is made of severe disc space narrowing at C5-C6. There is moderate to severe multilevel facet arthrosis. Suspected biapical scarring within the lungs is partially imaged. IMPRESSION: No acute cervical spine fracture or subluxation. ACT 112: Negative or not required by law. Electronically signed by: Neo Brock M.D. 12/10/2020 7:09 AM Dictated: 12/10/20 0707Transcribed: 12/10/20 0707 XR chest 1V portable CLINICAL HISTORY: dizziness COMPARISON STUDY: Chest radiograph August 27, 2012. Chest CT August 28, 2012 FINDINGS: Lung volumes are normal. Mild bilateral lower lung opacity favors atelectasis or scarring. There is no pneumothorax or pleural effusion. Cardiac size is normal. Mediastinal contours are normal. There is no evidence for pulmonary edema. Old right clavicular fracture is incidentally noted. IMPRESSION: No acute cardiopulmonary findings. ACT 112: Negative or not required by law. Electronically signed by: Neo Brock M.D. 12/10/2020 7:03 AM Dictated: 12/10/20700Transcribed: 12/10/20700 Hospital Course (1) Dizziness: Fall Possible related to vasovagal vs orthostatic vs medication CT head was unremarkable MRI head showed No acute intracranial hemorrhage, no midline shift or space occupying lesions.No evidence of restricted diffusion to suggest acute ischemia/infarct. EEG showed no evidence of focal slowing or epileptiform activity. Echo showed no evidence of atrial shunt Neuro on board recommended to hold Aricept for now and will reevaluate pt in the office outpatient PT/OT eval Fall precaution Symptoms resolved Follow up with neurology in 4-6 weeks CAD Continue her Plavix, statin, and beta capo. Stable Dementia Continue On donepezil. Monitor for any delirium. Hyperlipidemia On statin. Deep venous thrombosis prophylaxis: Heparin subcu. Disposition Discharge home today Total Time Total Time Spent Total Time Spent (In Minutes): 35 minutes Discharge Plan Discharge Items Patient Disposition: Home - Self-Care Reason For Visit: DIZZINESS Discharge Diagnosis: Dizziness Fall Activity: Resume your previous activity Non-emergency contact: Primary Care Provider and Neurologist Call non-emergency contact if: you have any medication questions Follow-up/Referrals: Jennifer Huynh DO [Primary Care Provider] - (Date & Time 12/18/2020 10:20 AM Provider Eugene Dang DO Department [facility] ) Diet: Heart Healthy Addtl Attending Provider Instructions: Follow up with your primary care provider Dr. Dang on 12/18/2020 @ 10:[address] [facility] Follow up with Neurology in 4-6 weeks (Please call for the appointment) Fall precaution Aricept was discontinued for now Pending Studies at Discharge: No Stand-Alone Forms: My Comfy, Smoking Cessation Medications and DC Order Prescriptions: New meclizine 12.5 mg Tablet 12.5 mg PO BID PRN (Reason: for dizziness only) Qty: 30 RF: 0 Continued atorvastatin 40 mg tablet 40 mg PO HS RF: 0 clopidogrel 75 mg tablet 75 mg PO DAILY RF: 0 metoprolol tartrate 50 mg tablet 50 mg PO BID RF: 0 Discontinued donepezil 5 mg tablet 5 mg PO DAILY RF: 0 Discharge Orders: Discharge Order (Routine); Ordered 12/11/20 Ordered By: Gissell Crawford/Other Patient Handouts: Treating Syncope: Prevention, Fall Prevention Assessing Risk, Preventing Falls How to Prepare ... Admission Data Admit Date/Time: 12/10/20 04:05 Attending Provider: Gissell Bee Admit Provider: Edmond Landon Primary Care Provider: Jennifer Huynh Other Providers: Edmond Landon ; Abigail Erickson ; Tim Al ; Abigail Dickinson ; Richie Clement Other Interventions: Discharge Summary Assessment (RN) Last Done: 12/11/20 15:40
== END 2020-12-11 16:30 | disposition home or self-care (01) ==
LOC: 2W 23:25 → ED 23:25 → 2W 12-10 07:30

== ENCOUNTER 2024-09-15 11:57 | Inpatient (IN) ==
--- OUTSIDE RECORDS SUMMARY | 2024-09-15 12:08 | External Medical Summary | Summary of Care ---
Author Name Unknown Organization [facility] Address [address] [place] [address] Phone [phone] Care Team Providers Care Sand Car Worker Name Role Phone Jennifer Huynh DO Primary Care Provider [phone] Reason for Visit * Reason Onset Date Comments Palliative Care Follow-up 06/11/2024 Encounter Details Date Type Department Care Team (Late st Contact Info) Description 06/11/2024 Telephone Palliative Medicine, [facility] [address] [place] [phone] Frida Leonardo MD [address] [place] [address] Palliative Care Follow-up Allergies Active Allergy Reactions Criticality Noted Date Comments Penicillins Edema face/lips/tongue,Hives High 1996 documented as of this encounter (statuses as of 06/11/2024) Medications ASPIRIN 81 MG PO CHEWIndications:CA D (coronary artery disease),Pulsatile tinnitus,Benign neoplasm of colon,Other seborrheic keratosis,Degenera tion of lumbosacral intervertebral disc,ADVANCE DIRECTIVE INFORMATION,Dyslip idemia, goal LDL below 100,Osteoporosis,C hronic cholecystitis 1 Tab Oral Daily 30 Tab 11 3 Active NITROGLYCERIN 0.4 MG SL SUBLIndications:CA D (coronary artery disease),Pulsatile tinnitus,Benign neoplasm of colon,Other seborrheic keratosis,Degenera tion of lumbosacral intervertebral disc,Dyslipidemia, goal LDL below 100,Osteoporosis,C hronic cholecystitis 1 Tab Sublingual Every 5 minutes as needed for chest pain 25 Tab 5 5 Active Vitamin D 25 MCG (1000 UT) Oral Tablet Take by mouth . Active Hydrocortisone 2.5 % External CreamIndications:S BD (seborrheic dermatitis) Apply topically to affected area 2 times a day. Apply to scaling are on the upper eyelids x 4 days then off 20 g 2 3 Active Donepezil HCl 10 MG Oral Tablet (Aricept) Take 1 Tablet by mouth in the morning. Take with food.. 90 Tablet 3 4 Active Clopidogrel Bisulfate 75 MG Oral Tablet (pLAVix) Take 1 Tablet by mouth in the morning. 90 Tablet 1 4 Active Atorvastatin Calcium 40 MG Oral Tablet (Lipitor)Indicatio ns:Dyslipidemia, goal LDL below 100 Take 1 Tablet by mouth in the morning. 90 Tablet 3 4 Active Metoprolol Tartrate 50 MG Oral Tablet (Lopressor) Take 1 Tablet by mouth in the morning and 1 Tablet before bedtime. 180 Tablet 2 5 Active documented as of this encounter (statuses as of 06/11/2024) Active Problems Problem Noted Date Diagnosed Date Dementia of the Alzheimer's type, with late onset, with delirium 09/01/2022 Vascular dementia without behavioral disturbance 12/06/2019 Gastroesophageal reflux disease without esophagi tis 05/03/2017 Hx of basal cell carcinoma 10/22/2016 CAD (coronary artery disease) 06/16/2012 OSTEOPOROSIS 12/25/2009 Dyslipidemia, goal LDL below 100 07/02/2009 LUMB-LUMBOSAC DISC DEGEN 05/18/2003 History of benign neoplasm of colon 11/30/1999 TINNITUS 06/05/1999 documented as of this encounter (statuses as of 06/11/2024) Resolved Problems Problem Noted Date Diagnosed Date Resolved Date Prediabetes 06/28/2017 10/24/2018 Overview: Per Prediabetes protocol #1 Paroxysmal SVT (supraventricular tachycardia) 01/02/20 13 11/22/2019 Unstable angina 06/16/2012 06/27/2019 Gen[employer] Other*[id number] 06/15/2012 06/22/2016 Overview (06/15/2012): Study Title: Genomic Markers for Patients with Cardiovascular Disease Project # [id number] Lay Out Inspector: Dilcia Calderon MD [phone] Chronic cholecystitis 05/28/20102016 ADVANCE DIRECTIVE INFORMATION 03/25/2010 03/19/2024 Overview (09/15/2006): Pt has a living will on file in this office Dyslipidemia, goal to be determined 04/24/2009 07/02/2009 Overview (04/24/2009): Per Lipid Taxonomy. PURE HYPERCHOLESTEROLEM 09/09/200404/15 Overview (04/24/2009): Per Lipid Taxonomy. Other seborrheic keratosis 10/24/2001 0 10/22/2016 documented as of this encounter (statuses as of 06/11/2024) Immunizations Name Administration Dates Next Due COVID-19 mRNA, LNP-s, No Pre serve, 2-Dose Series (Moderna) 07/11/2020,06/13/2020 H1N1 2009 Influenza, IM 06/02/2009 Pneumococcal Conjugate Vacc, 13 Valent (Prevnar) 07/04/2014 Pneumococcal Polysaccharide PPV23 (Pneumovax) 05/15/2010,03/17/2006 Season Influenza, Quad, PF, Adjuvanted, 65+ Yrs, IM (FLUAD) 04/04/2020 Seasonal Influenza Vac., MDV , IM, 0.5 mL (Fluzone) 02/19/2014,02/26/2013,02/11/2012,02/04,03/17/2010,01/31/2009,02/19/2008 ,02/13/2007,03/17/2006 Seasonal Influenza, High Dos e, Trivalent, PF, IM (Fluzone HD) 03/28/2024 Seasonal Influenza, PF, 6 M & above, IM , (FluLaval or Fluzone) 05/18/2018,02/16/2017 Seasonal Influenza, Quadriva lent Hd (Fluzone Hd) 02/16/2023,01/29/2022,02/17/2021 Seasonal Influenza, Quadriva lent, No Preserve, IM 03/24/2016,03/04/2015 Seasonal Influenza, Trivalen t, Adjuvanted, 65+ YRS, PF, (Fluad) 01/10/2019 TD, Preservative Free 07/27/2010 Varicella Zoster Vaccine (Adult) 10/17/2007 documented as of this encounter Social History Tobacco Use Types Packs/Day Years Used Date Smoking Tobacco: Former Cigarettes 2 15 0 05/16/1976 - 05/16/1991 Smokeless Tobacco: Never Alcohol Use Standard Drinks/Week Comments Not Currently 5.8 (1 standard drink = 0.6 oz p ure alcohol) 2 glass wine/mo PHQ-2 Answer Date Recorded PHQ Adult Total Score 0 08/30/2023 Hunger Vital Sign Answer Date Recorded Within the past 12 months, y ou worried that your food would run out before you got the money to buy more. Never true 12/19/19 24 Within the past 12 months, t he food you bought just didn't last and you didn't have money to get more. Never true 12/19/2023 Childcare Answer Date Recorded Do you feel overwhelmed with taking care of a child, family member or friend? No 12/19/2023 Does your family need help f inding childcare? (Household - for ages 0-17 years) Not on file 12/19/2023 Clothing Answer Date Recorded Have you been unable to get clothing when it was really needed? No 12/19/2023 Is your family able to get c lothes or diapers when needed? (Household - for ages 0-17 years) Not on file 12/19/2023 Personal Safety Answer Date Recorded Do you feel unsafe or have concerns for your saf ety? No 12/19/2023 Do you have concerns for you r family's safety? (Household - for ages 0-17 years) Not on file 12/19/2023 Utilities Answer Date Recorded Do you have trouble paying y our heating, water, or electric bill? No 12/19/2023 Is your family able to pay t he heat, water, or electric bill? (Household - for ages 0-17 years) Not on file 12/19/2023 Does your family have access to good internet? (Household - for ages 0-17 years) Not on file 12/19/2023 Employment Status Answer Date Recorded Are you unemployed or without regular income? No 12/19/2023 Does the household have a re gular source of income? (Household - for ages 0-17 years) Not on file 12/19/2023 Social Connections Answer Date Recorded How often do you feel lonely or isolated from th ose around you? Never 12/19/2023 Financial Resource Strain Answer Date R ecorded Do you have any trouble payi ng for your medications, or do you think you might in the future? No 12/19/2023 Does your family have troubl e paying for medicine? (Household - for ages 0-17 years) Not on file 12/19/2023 Transportation Needs Answer Date Record ed Do you have trouble getting a ride to medical visits or work? (Adult - for ages 18 years and over) Not on file 12/19/2023 Does your family have a hard time getting a ride to doctors visits? (Household - for ages 0-17 years) Not on file 12/19/2023 Has lack of transportation k ept you from medical appointments, meetings, work, or from getting things needed for daily living? Check all that apply. No 12/19/2023 Do you (or your family) have trouble finding or paying for a ride (transportation)? (Household - for ages 0-17 years) Not on file 12/19/2023 Housing Stability Answer Date Recorded Do you currently live in a s helter or have no steady place to sleep at night? No 12/19/2023 Do you think you are at risk of becoming homeless? (Adult - for ages 18 years and over) Not on file 12/19/2023 Does your family worry about paying for your home or becoming homeless? (Household - for ages 0-17 years) Not on file 0 12/19/2023 Are you homeless or worried that you might be in the future? No 12/19/2023 Are you (or your family) poli eless or worried that you might be in the future? (Household - for ages 0-17 years) Not on file Food Insecurity Answer Date Recorded Do you need food for this week? No 12/19/2023 Are you able to get enough f ood for your family? (Household - for ages 0-17 years) Not on file 12/19/2023 Does your family need food t his week? (Household - for ages 0-17 years) Not on file 12/19/2023 Do you always have enough fo od for your family? 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) Not on file Not on file N ot on file documented as of this encounter Miscellaneous Notes * Telephone Encounter - Leni Echeverria LPN - 06/11/2024 1:23 PM EST Patient no-showed visit on 06/06 Called and spoke with , Paras Overall, patient remains at her baseline No medication issues Still has caregivers in the evenings No recent decline still struggling to find caregiving during the day on an PRN basis The day programs in the area want a consistent schedule Advised him to continue reaching out to [employer] or see if his caregivers know of anyone that can help during the day At this point, he does not feel she needs a f/u with us Would like to leave f/u PRN He has our number to call with any needs documented in this encounter Plan of Treatment Upcoming Encounters Date Type Department Care Team (Late st Contact Info) Description 09/25/2024 1:40 PM EDT Office Visit Family Practice [facility] [address] [id number] Jennifer Huynh DO [address] [id number] 10/05/2024 2:00 PM EDT Office Visit Neurology [facility] [address] [place] [address] Michelet Shea, DO [address] [place] [address] Health Maintenance Due Date Last Done Comments DTap/Tdap Vaccines (1 - Tdap) 07/28/2010 07/27/2010, 12/14/1994 *BISPHONATE OR OTHER ACCEPTABLE MEDICATION NEEDED FOR OSTEOPOROSIS (REFER TO SMARTSET #1146) 05/05/2018 Adult Wellness Visit 09/19/2019 09/18/2018 DXA Scan 01/21/2022 01/22/2020, 09/14, 02/04/2014, Additional history exists COVID-19 Vaccine ( season) 2024 07/11/2020, 06/13/2020 Depression Screening 08/29/2024 08/30/2023 Zoster Vaccines Discontinued 10/17/2007 VITAMIN D LEVEL ONCE IN A LIFETIME-USE SMARTSET# [id number] Completed 07/22/2010, 10/09/2009 Pneumococcal Vaccine: 50+ Years Completed 07/04/2014, 05/15/2010, 03/17/2006 Influenza Vaccine (FLU shot) Completed 03/28/2024, 02/16/2023, 01/29/2022, Additional history exists HPV (Gardasil) Vaccine Aged Out No lo nger eligible based on patient's age to complete this topic Hepatitis B Vaccine Aged Out No longe r eligible based on patient's age to complete this topic MENINGOCOCCAL (MENACTRA/MENVEO) Aged Out No longer eligible based on patient's age to complete this topic documented as of this encounter Medical Devices Not on filedocumented as of this encounter Advance Directives Documents on File Type Date Recorded 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 Question Answer Comments Discussion of Advance Directives occurred with: Patient Does the patient have a Living Will? No Does the patient have Health Care Power of Attor ximena? No * No Code Status Date Activated Date Inactivated Comments 10/05/2004 3:23 PM 10/05/2004 3:23 PM Care Teams Sand Car Worker Relationship Specialty Start Date End Date Jennifer Huynh DO [address] [address] PCP - General Family Medicine 07/14/16 documented as of this encounter
--- OUTSIDE RECORDS SUMMARY | 2024-09-15 12:08 | External Medical Summary | Summary of Care ---
Author Name Unknown Organization [facility] Address [address] [facility] [place] [address] Phone [phone] Care Team Providers Care Aprn Name Role Phone Jennifer Huynh DO Primary Care Provider [phone] Encounter Details Date Type Department Care Team (Late st Contact Info) Description 06/07/2024 Population Health External Data Unspecified Department Allergies Active Allergy Reactions Criticality Noted Date Comments Penicillins Edema face/lips/tongue,Hives High 1996 documented as of this encounter (statuses as of 06/07/2024) Medications ASPIRIN 81 MG PO CHEWIndications:CA D [...] as of this encounter (statuses as of 06/07/2024) Active Problems Problem Noted Date Diagnosed Date [...] as of this encounter (statuses as of 06/07/2024) Resolved Problems Problem Noted Date Diagnosed Date Resolved Date Prediabetes 06/28/2017 10/24/2018 Overview: Per Prediabetes protocol #1 Paroxysmal SVT (supraventricular tachycardia) 01/02/20 13 11/22/2019 Unstable angina 06/16/2012 06/27/2019 Genomics [employer] Research Other*[id number] 06/15/2012 06/22/2016 Overview (06/15/2012): Study Title: Genomic Markers for Patients with Cardiovascular Disease Project # [id number] Stone Crusher Operator: Dilcia Calderon MD [phone] Chronic cholecystitis 05/28/20102016 ADVANCE DIRECTIVE INFORMATION 03/25/2010 03/19/2024 Overview (09/15/2006): Pt has a living will on file in this office Dyslipidemia, goal to be determined 04/24/2009 07/02/2009 Overview (04/24/2009): Per Lipid Taxonomy. PURE HYPERCHOLESTEROLEM 09/09/200404/15 Overview (04/24/2009): Per Lipid Taxonomy. 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) Not on file Not on file N ot on file documented as of this encounter Plan of Treatment Upcoming Encounters Date Type Department Care Team (Late st Contact Info) Description 09/25/2024 1:40 PM EDT Office Visit Family Practice [facility] [address] [facility] [place] [address] Jennifer Huynh, DO [address] [place] [address] 10/05/2024 2:00 PM EDT Office Visit Neurology [facility] [address] [place], [place] [id number] Michelet Shea, DO [address] [facility] [place] [id number] Health Maintenance Due Date Last Done Comments DTap/Tdap Vaccines (1 - Tdap) 07/28/2010 07/27/2010, 12/14/1994 *BISPHONATE OR OTHER ACCEPTABLE MEDICATION NEEDED FOR OSTEOPOROSIS (REFER TO SMARTSET #1146) 05/05/2018 Adult Wellness Visit 09/19/2019 09/18/2018 DXA Scan 01/21/2022 01/22/2020, 09/14, 02/04/2014, Additional history exists COVID-19 Vaccine (2023- season) 2024 07/11/2020, 06/13/2020 Depression Screening 08/29/2024 08/30/2023 Zoster Vaccines Discontinued 10/17/2007 VITAMIN D LEVEL ONCE IN A LIFETIME-USE SMARTSET# 04289 Completed 07/22/2010, 10/09/2009 Pneumococcal Vaccine: 50+ Years [...] Documents on File Type Date Recorded Patient Underwriter Solicitation Director Expl anation Power of Overhead Foreman 01/06/2006 * Full Code (Latest Code Status [...] 3:23 PM 10/05/2004 3:23 PM Care Teams Aprn Relationship Specialty Start Date End Date Jennifer Huynh DO [address] [place] [address] PCP - General Family Medicine 07/14/16 documented as of this encounter
--- OUTSIDE RECORDS SUMMARY | 2024-09-15 12:08 | External Medical Summary | Summary of Care ---
Author Name Unknown Organization [facility] Address [address] [facility] [place] [address] Phone [phone] Care Team Providers Care Program Management Professional Name Role Phone Jennifer Huynh DO Primary Care Provider [phone] Reason for Visit * Reason Onset Date Comments Home Health 04/06/2024 Encounter Details Date Type Department Care Team (Late st Contact Info) Description 04/06/2024 Telephone Family Practice [facility] [address] [place] [address] Jennifer Huynh DO [address] [place] [address] Home Health Allergies Active Allergy Reactions Criticality Noted Date Comments Penicillins Edema face/lips/tongue,Hives High 1996 documented as of this encounter (statuses as of 07/07/2024) Medications ASPIRIN 81 MG PO CHEWIndications:CA D [...] the morning. 90 Tablet 1 4 Active documented as of this encounter (statuses as of 07/07/2024) Active Problems Problem Noted Date Diagnosed Date [...] as of this encounter (statuses as of 07/07/2024) Resolved Problems Problem Noted Date Diagnosed Date Resolved Date Prediabetes 06/28/2017 10/24/2018 Overview: Per Prediabetes protocol #1 Paroxysmal SVT (supraventricular tachycardia) 01/02/20 13 11/22/2019 Unstable angina 06/16/2012 06/27/2019 Genomics Cardio Research Other*[id number] 06/15/2012 06/22/2016 Overview (06/15/2012): Study Title: Genomic Markers for Patients with Cardiovascular Disease Project # [id number] Spanish Instructor: Dilcia Calderon MD [phone] Chronic cholecystitis 05/28/20102016 ADVANCE DIRECTIVE INFORMATION 03/25/2010 03/19/2024 Overview (09/15/2006): Pt has a living will on file in this office Dyslipidemia, goal to be determined 04/24/2009 07/02/2009 Overview (04/24/2009): Per Lipid Taxonomy. PURE HYPERCHOLESTEROLEM 09/09/200404/15 Overview (04/24/2009): Per Lipid Taxonomy. Other seborrheic keratosis 10/24/2001 0 10/22/2016 documented as of this encounter (statuses as of 07/07/2024) Immunizations Name Administration Dates Next Due COVID-19 [...] ages 0-17 years) Not on file 12/19/2023 Food Insecurity Answer Date Recorded Within the past 12 months, y ou worried that your food would run out before you got the money to buy more. Never true 12/19/19 24 Within the past 12 months, t he food you bought just didn't last and you didn't have money to get more. Never true 12/19/2023 Do you need food for this week? 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 Please fax new orders to [facility] Home Health Advised that additional visit orders will be signed by Jennifer Huynh DO and to fax to the office for signature documented in this encounter Plan of Treatment Upcoming Encounters Date Type Department Care Team (Late st Contact Info) Description 09/25/2024 1:40 PM EDT Office Visit Family Practice [facility] [address] [place] [address] Jennifer Huynh DO [address] [place] [address] 10/05/2024 2:00 PM EDT Office Visit Neurology [facility] [address] [place] [address] Michelet Shea, [address] [facility] [place] [address] Health Maintenance Due Date Last Done Comments [...] D LEVEL ONCE IN A LIFETIME-USE SMARTSET# 24069 Completed 07/22/2010, 10/09/2009 Pneumococcal Vaccine: 50+ Years [...] on patient's age to complete this topic Meningitis B Vaccine (Bexsero/Trumemba) Aged Out No longer eligible based on patient's age to complete this topic documented as of this encounter Medical Devices Not on filedocumented as of this encounter Advance Directives Documents on File Type Date Recorded Patient Sample Maker Original Expl anation Power of Syrup Blender 01/06/2006 * Full Code (Latest Code Status [...] 3:23 PM 10/05/2004 3:23 PM Care Teams Program Management Professional Relationship Specialty Start Date End Date Jennifer Huynh DO [address] [place] [address] PCP - General Family Medicine 07/14/16 documented as of this encounter
--- OUTSIDE RECORDS SUMMARY | 2024-09-15 12:09 | External Medical Summary | Summary of Care ---
Author Name Unknown Organization [facility] [address] [facility] [address] Phone [phone] Care Team Providers Care Precise Winder Name Role Phone Jennifer Huynh DO Primary Care Provider [phone] Reason for Visit * Reason Comments NEW PATIENT palliative * Evaluate & Treat - Unlimited Visits (Within 10 days (routine)) - Authorized Specialty Diagnoses / Procedures Referred By Contac t Referred To Contact Hospice and Palliative Medicine / Palliative Medicine Diagnoses Dementia of the Alzheimer's type, with late onset, with delirium (HCC) Jennifer Huynh DO [address] [place] [address] Phone: tel: fax: Referral ID Status Reason Start Date Expiration Date Visits Requested Visits Authorized [id number] Authorized Specialty Services Required 4 [phone] Encounter Details Date Type Department Care Team (Late st Contact Info) Description 04/04/2024 10:30 AM EST Office Visit Palliative Medicine [facility] [address] [place] [address] Frida Leonardo MD [address] [place] [address] [place] [address] Vascular dementia without behavioral disturbance (HCC)*; Palliative care encounter; DNR (do not resuscitate) Allergies Active Allergy Reactions Criticality Noted Date Comments Penicillins Edema face/lips/tongue,Hives High 1996 documented as of this encounter (statuses as of 04/04/2024) Medications ASPIRIN 81 MG PO CHEWIndications:CA D [...] then off 20 g 2 3 Active Metoprolol Tartrate 50 MG Oral Tablet (Lopressor) Take 1 Tablet by mouth in the morning and 1 Tablet before bedtime. 180 Tablet 2 4 Active Atorvastatin Calcium 40 MG Oral Tablet (Lipitor)Indicatio ns:Dyslipidemia, goal LDL below 100 Take 1 Tablet by mouth in the morning. 90 Tablet 1 4 Active Donepezil HCl 10 MG Oral Tablet (Aricept) Take 1 Tablet by mouth in the morning. Take with food.. 90 Tablet 3 4 Active Clopidogrel Bisulfate 75 MG Oral Tablet (pLAVix) Take 1 Tablet by mouth in the morning. 90 Tablet 1 4 Active documented as of this encounter (statuses as of 04/04/2024) Active Problems Problem Noted Date Diagnosed Date [...] as of this encounter (statuses as of 04/04/2024) Resolved Problems Problem Noted Date Diagnosed Date Resolved Date Prediabetes 06/28/2017 10/24/2018 Overview: Per Prediabetes protocol #1 Paroxysmal SVT (supraventricular tachycardia) 01/02/20 13 11/22/2019 Unstable angina 06/16/2012 06/27/2019 Genomics Cardio Research Other*[id number] 06/15/2012 06/22/2016 Overview (06/15/2012): Study Title: Genomic Markers for Patients with Cardiovascular Disease Project # [id number] Juice Bar Team Member: Dilcia Calderon MD [phone] Chronic cholecystitis 05/28/20102016 ADVANCE DIRECTIVE INFORMATION 03/25/2010 03/19/2024 Overview (09/15/2006): Pt has a living will on file in this office Dyslipidemia, goal to be determined 04/24/2009 07/02/2009 Overview (04/24/2009): Per Lipid Taxonomy. PURE HYPERCHOLESTEROLEM 09/09/200404/15 Overview (04/24/2009): Per Lipid Taxonomy. Other seborrheic keratosis 10/24/2001 0 10/22/2016 documented as of this encounter (statuses as of 04/04/2024) Immunizations Name Administration Dates Next Due COVID-19 [...] 12/19/2023 Does the household have a re lar source of income? 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) Not on file Not on file N ot on file documented as of this encounter Last Filed Vital Signs Vital Sign Reading Time Taken Comments Blood Pressure 120/60 04/04/2024 10:48 AM EST Pulse 102 04/04/2024 10:48 AM EST Temperature 36.2 °C (97.2 °F) 04/04/2024 10:[address] Respiratory Rate - - Oxygen Saturation 92% 04/04/2024 10:48 AM EST Inhaled Oxygen Concentration - - Weight 62.1 kg (137 lb) 04/04/2024 10:48 AM EST Height 157.5 cm (5' 2") 04/04/2024 10:48 AM EST Body Mass Index 25.06 04/04/2024 10:48 AM EST documented in this encounter Progress Notes * Frida Leonardo MD - 04/04/2024 10:32 AM EST Images from the original note were not included. Palliative Medicine Outpatient Consult Note [facility] Palliative Medicine Outreach [address] [facility], [place] [address] Name: Marcella Baird Date: 04/04/2024 Referring Provider: Jennifer Huynh DO Reason for Consult: Goals of care; Pain and symptom management Patient accompanied by , history obtained from . HPI: Marcella Baird is a 83 year old female with a primary diagnosis of dementia, which has been progressive over years. In the last 6 months, things have worsened, particularly with her confusion.No hospitalizations. She seems to be around a FAST 7A per . Has caregivers for 3 hours a week, while he goes to [employer] practice - band is called [email or web address]. Has another group called [employer]. Has been playing 60+ years. Has music room at home sohe can play at night too and she happily sits there. Hardest part right now is getting through to her to get her to do what she has to do. She is basically sitting there all day with snacks and Westerns on TV. Never agitated. Sweet overall. Sometimes in bad mood. Takes Donepezil, initially was OK but then was told to double dose which led to hospitalization, then when stopped it she worsened. Weaned her up to 10mg, has been on it for some time. Full discussion below, but in summary, he is ok with treatment for REVERSIBLE things, but if she declined, would want her to be comfortable. POLST completed for DNR/DNI but ok with LIMITED treatments. Palliative symptoms: Pain: when wakes up in morning, has a pain in R side, hobbles into bathroom then it goes away, sleeps on right side Nausea/Vomiting: no Appetite: good. Eats same as Constipation: good, sometimes too good, 2-3 x week she has loose stools Confusion: yes Sleep issues: sleeps OK, was up at night at 4am and wanders a bit Dyspnea: no Mood issues: not agitated Falls: some, Other: Functional Status: - Palliative Performance Scale: 60% - Activities of Daily Living: (bolded items indicate areas of independence) 1/6 BADL (transfer, toilet, continence, bathe, dress self, feed self) 0/7 IADL (meds, transport, telephone, shop, housekeeping, meal prep, money management) - Ambulates: Unassisted SHx: Family Support: She has a kid who passed then they got He has 2 kids from prior marriage who are not involved - son is 125 miles away - he is a trustee Daughter is estranged - lives in [place] Brother in [place] Has lived here since 1983 35 years PHYSICAL EXAMINATION: Constitutional: BP 120/60 (BP Site: Right Arm, BP Position: Sitting, BP Cuff Size: Regular) | [id number] | Temp 36.2 °C (97.2 °F) | Ht 1.575 m (5' 2") | Wt 62.1 kg (137 lb) | SpO2 92% | BMI 25.06 kg/m² | BSA 1.65 m² , no acute distress HENT: normocephalic, atraumatic. Eyes: anicteric, sclera and conjunctiva normal. Neck: no stridor Chest: normal respiratory effort Abdominal: nondistended Extremities: no edema Neuro: pleasantly confused Psych: normal mood and affect Data Review: External notes reviewed: - Reviewed notes from PCP, pt has dementia - Reviewed notes from Dr Shea, [facility], she notes pt does have respite care Lab / Imaging Results: Cr 0.7, normal, Information obtained from for collateral history given pts memory impairment Discussion with other team members: I discussed patient with Dr Shea and Dr Huynh about pts careplan Decision-making Capacity: Does Patient have Decisional Capacity? no Does Patient have a Healthcare Agent? Yes, Advanced Care Planning: AD: not available POLST: He is clear she is a DNR He is ok with LIMITED tx He is ok with abx for comfort Does not want artificial nutrition, ok with IV hydration POLST completed, original given to patient, copy taken to be put into EMR under ACP docs but also scanned into Chart Review --> Scans Date of discussion: 04/04/2024 We reviewed hospice and what it entails. He would be open to it in the future See ACP note in ACP tab under heading bar ASSESSMENT/PLAN: Marcella Baird is a/an 83 year old female referred for consultation to Palliative Medicine with the primary diagnosis of: Dementia, likely Vascular type, on FAST scale would be FAST 7A Limited functional capabilities Urinary/stool incontinence Hx of CAD Goals of care - ok with LIMITED care for reversible illnesses DNR / DNR if admitted Recommendations: is doing a great job caring for her. Reviewed when the time would be to get hospice involved. He will also reach out to [facility] to see if theres a waiting list she can get onto. They had a referral to HH, we will check if they go to their area, if not can refer to [facility] HH. POLST/ OOH DNR to go on refrigerator For pain in leg, can give Tylenol PRN Follow up in 8-10 weeks. Pt is able to do video visits but able to come to SP. Next visit with me. Thank you for this consult. We appreciate the opportunity to take part in the care of your patient. Note routed back to referring provider Jennifer Huynh DO and PCP DO Frida Moore MD [facility] Palliative Medicine [phone] documented in this encounter Nursing Notes * Nuria Collado MED ASSIST - 04/04/2024 10:50 AM EST Patient identifed by name and birthdate Do you have any concerns about pain management for today's visit? Yes. Patient instructed to discuss pain concerns with provider during the visit today Living Will or Advance Directive for Health Care as noted on the problem list. [facility] is a way you can talk to your provider on line through e-mail. Would you like to sign up? I can activate it for you? ALREADY ACTIVE Filed Vitals: 04/04/24 1048 BP: 120/60 Pulse: 102 Temp: 36.2 °C (97.2 °F) SpO2: 92% Weight: 62.1 kg (137 lb) Height: 1.575 m (5' 2") Patient was instructed to not get up on the exam table/exam chair until directed and assisted by their provider; patient is to remain seated in the chair/ wheelchair/ exam table/ exam chair for fall prevention and safety reasons. Patient is aware to have assistance to step down off exam table/exam chair with personnel. Patient voiced full comprehension of instructions. documented in this encounter Miscellaneous Notes * ACP (Advance Care Planning) - Frida Leonardo MD - 04/04/2024 11:48 AM EST Images from the original note were not included. Advance Care Planning Patient-centered Communication 04/04/2024 The patient/surrogate voluntarily agreed to participate in advance care planning discussion. They were advised that this is a separate service which may incur out of pocket cost in the form of copayment and/or deductibles. Location: Clinic Individual(s) present for conversation: Patient and Spouse Decisions Synopsis [employer] Most Recent Value Past ~10 years 04/04/2024 11:48 Decisions CPR decision: Declines CPR 04/04/2024 Declines CPR Intubation/Mechanical Ventilation decision: Declines Intubation/mechanical ventilation 04/04/2024 Declines Intubation/mechanical ventilation Additional Comments Discerning What Matters Most to the Patient: [employer] Most Recent Value Past ~10 years 04/04/2024 11:48 Discerning What Matters Most to the Patient Their current SYMPTOMS include: Reduced overall well being 04/04/2024 Reduced overall well being Source: Content from [employer] Aligning Care With What Matters Most: mobile[employer] Most Recent Value Past ~10 years 04/04/2024 11:48 Aligning Care With What Matters Most Interventions/Choices: CPR;Intubation/mechanical ventilation 04/04/2024 CPR;Intubation/mechanical ventilation Rationale for Decisions Advanced Care Planning: AD: not available POLST: He is clear she is a DNR He is ok with LIMITED tx He is ok with abx for comfort Does not want artificial nutrition, ok with IV hydration POLST completed, original given to patient, copy taken to be put into EMR under ACP docs but also scanned into Chart Review --> Scans Date of discussion: 04/04/2024 We reviewed hospice and what it entails. He would be open to it in the future See ACP note in ACP tab under heading bar Source: Content from [employer] [facility] 18 minutes spent in direct [id number]-va-ofsu discussion today, Frida Leonardo MD documented in this encounter Plan of Treatment Upcoming Encounters Date Type Department Care Team (Late st Contact Info) Description 04/06/2024 1:00 PM EST Office Visit Neurology [facility] [address] [place] [address] Beth Sandhu CRNP [address] [place] [address] 09/25/2024 1:40 PM EDT Office Visit [facility] [address] [place] [address] Jennifer Huynh DO [address] [facility] [place] [address] 10/05/2024 2:00 PM EDT Office Visit Neurology [facility] [address] [place] [address] Michelet Shea DO [address] [place] [address] Scheduled Referrals Name Type Priority Associated Diagnoses Orde r Schedule PALLIATIVE CARE REFERRAL OP Referral Within 10 days (routine) Dementia of the Alzheimer's type, with late onset, with delirium (HCC) Ordered: 03/28/2024 Health Maintenance Due Date Last Done Comments [...] D LEVEL ONCE IN A LIFETIME-USE SMARTSET# 33618 Completed 07/22/2010, 10/09/2009 Pneumococcal Vaccine: 65+ Years Completed 07/04/2014, 05/15/2010, 03/17/2006 Influenza Vaccine [...] Not on filedocumented as of this encounter Visit Diagnoses Diagnosis Vascular dementia without behavioral disturbance (HCC)- Primary Vascular dementia, uncomplicated Palliative care encounter Encounter for palliative care DNR (do not resuscitate) Do not resuscitate status documented in this encounter Advance Directives Documents on File Type Date Recorded Patient Coke Crane Operator Expl anation Power of Media Associate 01/06/2006 * Full Code (Latest Code Status [...] 3:23 PM 10/05/2004 3:23 PM Care Teams Precise Winder Relationship Specialty Start Date End Date Jennifer Huynh DO [address] [place] [address] PCP - General Family Medicine 07/14/16 documented as of this encounter
--- OUTSIDE RECORDS SUMMARY | 2024-09-15 12:09 | External Medical Summary | Summary of Care ---
Author Name Unknown Organization [facility] Address [address] [facility] [place] [address] Phone [phone] Care Team Providers Care Home Mortgage Disclosure Act Specialist Name Role Phone Jennifer Huynh DO Primary Care Provider [phone] Reason for Visit * Reason Onset Date Comments Palliative Care Follow-up 04/04/2024 Encounter Details Date Type Department Care Team (Late st Contact Info) Description 04/04/2024 Telephone Palliative Medicine, [address] [place] [address] Frida Leonardo MD [address] [place] [id number] Palliative Care Follow-up Allergies Active Allergy [...] Unstable angina 06/16/2012 06/27/2019 [employer] Other*[id number] 06/15/2012 06/22/2016 Overview (06/15/2012): Study Title: Genomic Markers for Patients with Cardiovascular Disease Project # [id number] State Federal Relations Deputy Director: Dilcia Calderon MD [phone] Chronic cholecystitis 05/28/20102016 ADVANCE DIRECTIVE INFORMATION 03/25/2010 [...] Industry Job 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 Date Job 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 Date 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 on file Not on file N ot on file documented as of this encounter Miscellaneous Notes * Telephone Encounter - Leni Echeverria LPN - 04/04/2024 12:30 PM EST Call to [facility] They do not service patients area Call to [facility] They service patients area Referral, notes, and demographics faxed to [facility] at [phone] documented in this encounter Plan of Treatment Upcoming Encounters Date Type Department Care Team (Late st Contact Info) Description 04/06/2024 1:00 PM EST Office Visit Neurology [facility] [address] [place] [address] Beth Sandhu CRNP [address] [place] [address] 09/25/2024 1:40 PM EDT Office Visit Family Practice [facility] [address] [place] [address] Jennifer Huynh DO [address] [place] [address] 10/05/2024 2:00 PM EDT Office Visit Neurology [facility] [address] [facility] [place] [address] Michelet Shea, DO [address] [place] [address] Health Maintenance Due Date Last Done Comments [...] D LEVEL ONCE IN A LIFETIME-USE SMARTSET# [id number] Completed 07/22/2010, 10/09/2009 Pneumococcal Vaccine: 65+ Years [...] Documents on File Type Date Recorded Patient Belt Back Operator Expl anation Power of Straddle Truck Operator 01/06/2006 * Full Code (Latest Code Status [...] 3:23 PM 10/05/2004 3:23 PM Care Teams Home Mortgage Disclosure Act Specialist Relationship Specialty Start Date End Date Jennifer Huynh DO [address] [place] [address] PCP - General Family Medicine 07/14/16 documented as of this encounter
--- OUTSIDE RECORDS SUMMARY | 2024-09-15 12:09 | External Medical Summary | Summary of Care ---
Author Name Unknown Organization [facility] Address [address] [facility] [place] [address] Phone [phone] Care Team Providers Care Field Laboratory Operator Name Role Phone Alison Lopez DO Primary Care Provider [phone] Reason for Visit * Reason Onset Date Comments Medication Refill 03/29/2024 Encounter Details Date Type Department Care Team (Late st Contact Info) Description 03/29/2024 Refill Family Practice [facility] [address] [place] [address] Alison Lopez DO [address] [place] [address] Encounter for long-term (current) use of medications* Allergies Active Allergy Reactions Criticality Noted Date Comments Penicillins Edema face/lips/tongue,Hives High 1996 documented as of this encounter (statuses as of 04/02/2024) Medications ASPIRIN 81 MG PO CHEWIndications:CA D (coronary artery disease),Pulsatile tinnitus,Benign neoplasm of colon,Other seborrheic keratosis,Degenera tion of lumbosacral intervertebral disc,ADVANCE DIRECTIVE INFORMATION,Dyslip idemia, goal LDL below 100,Osteoporosis,C hronic cholecystitis 1 Tab Oral Daily 30 Tab 11 06/16/19 13 Active NITROGLYCERIN 0.4 MG SL SUBLIndications:CA D (coronary artery disease),Pulsatile tinnitus,Benign neoplasm of colon,Other seborrheic keratosis,Degenera tion of lumbosacral intervertebral disc,Dyslipidemia, goal LDL below 100,Osteoporosis,C hronic cholecystitis 1 Tab Sublingual Every 5 minutes as needed for chest pain 25 Tab 5 07/30/19 15 Active Vitamin D 25 MCG (1000 UT) Oral Tablet Take by mouth . Active Hydrocortisone 2.5 % External CreamIndications:S BD (seborrheic dermatitis) Apply topically to affected area 2 times a day. Apply to scaling are on the upper eyelids x 4 days then off 20 g 2 12/23/19 23 Active Metoprolol Tartrate 50 MG Oral Tablet (Lopressor) Take 1 Tablet by mouth in the morning and 1 Tablet before bedtime. 180 Tablet 2 08/19/19 24 Active Atorvastatin Calcium 40 MG Oral Tablet (Lipitor)Indicatio ns:Dyslipidemia, goal LDL below 100 Take 1 Tablet by mouth in the morning. 90 Tablet 1 10/21/19 24 Active Donepezil HCl 10 MG Oral Tablet (Aricept) Take 1 Tablet by mouth in the morning. Take with food.. 90 Tablet 3 01/20/20 24 Active Clopidogrel Bisulfate 75 MG Oral Tablet (pLAVix) Take 1 Tablet by mouth in the morning. 90 Tablet 1 03/29/20 24 Active Clopidogrel Bisulfate 75 MG Oral Tablet (pLAVix) Take 1 Tablet by mouth in the morning. 90 Tablet 3 03/31/20 23 024 Discontin ued(Refil l) documented as of this encounter (statuses as of 04/02/2024) Active Problems Problem Noted Date Diagnosed Date [...] as of this encounter (statuses as of 04/02/2024) Resolved Problems Problem Noted Date Diagnosed Date Resolved Date Prediabetes 06/28/2017 10/24/2018 Overview: Per Prediabetes protocol #1 Paroxysmal SVT (supraventricular tachycardia) 01/02/20 13 11/22/2019 Unstable angina 06/16/2012 06/27/2019 [employer] Other*[id number] 06/15/2012 06/22/2016 Overview (06/15/2012): Study Title: Genomic Markers for Patients with Cardiovascular Disease Project # [id number] Fabric Coating Supervisor: Dilcia Calderon MD [phone] Chronic cholecystitis 05/28/20102016 ADVANCE DIRECTIVE INFORMATION 03/25/2010 03/19/2024 Overview (09/15/2006): Pt has a living will on file in this office Dyslipidemia, goal to be determined 04/24/2009 07/02/2009 Overview (04/24/2009): Per Lipid Taxonomy. PURE HYPERCHOLESTEROLEM 09/09/200404/15 Overview (04/24/2009): Per Lipid Taxonomy. Other seborrheic keratosis 10/24/2001 0 10/22/2016 documented as of this encounter (statuses as of 04/02/2024) Immunizations Name Administration Dates Next Due COVID-19 mRNA, LNP-s, No Pre serve, 2-Dose Series (Moderna) 07/11/2020,06/13/2020 Diptheria/Tetanus (Adult) 12/14/1994 H1N1 2009 Influenza, IM 06/02/2009 Pneumococcal Conjugate Vacc, 13 Valent (Prevnar) 07/04/2014 Pneumococcal Polysaccharide PPV23 (Pneumovax) 05/15/2010,03/17/2006 Season Influenza, Quad, PF, Adjuvanted, 65+ Yrs, IM (FLUAD) 04/04/2020 Seasonal Influenza Vac., MDV , IM, 0.5 mL (Fluzone) 02/19/2014,02/26/2013,02/11/2012,02/04,03/17/2010,01/31/2009,02/19/2008 ,02/13/2007,03/17/2006,02/25/2005,03/16,03/07/2003,02/28/2002, 0 Seasonal Influenza, High Dos e, Trivalent, PF, [...] Industry Job Start Date Job End Date 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 Call Placed by [facility] [employer]. Thank you, Alison Chun [facility] Water Treatment Operator II [facility] 04/02/2024,12:24 PM * Telephone Encounter - Yuli Lee [facility] - 03/29/2024 11:52 AM ESTSigned Prescriptions: Disp Refills Clopidogrel Bisulfate 75 MG Oral Tablet (p*90 Tab*1 Sig: Take 1 Tablet by mouth in the morning.Authorizing Provider: ALISON LOPEZ User: YULI ANSARI * Telephone Encounter - Yuli Lee [facility] - 03/29/2024 11:52 AM EST Provided 90 days supply with 1 refill(s) until upcoming appointment. Per refill protocol patient should have CBC on file within past year. Reviewed AMP report, Care Gaps/Health Maintenance, medications list, and for any routine labs typically ordered for this patient. Lab orders placed. Please contact patient to advise of labs ordered for blood draw. Fasting is not required. Advise toobtain labs before her scheduled office visit 09/25/2024. Thank You, Yuli Ansari [facility] Clinical Pharmacist [facility] 03/29/2024, 11:52 AM * Telephone Encounter - Yuli Lee [facility] - 03/29/2024 11:51 AM EST Pending Prescriptions: Disp Refills Clopidogrel Bisulfate 75 MG Oral Tablet (*90 Tab*3 Sig: Take 1 Tablet by mouth in the morning. Last Visit: 03/28/2024 (in office), Visit date not found (telemedicine) Next Visit: 09/25/2024 If no future appointments scheduled, and last appointment is greater than a year ago, please schedule patient for a follow-up appointment Last date the medication was ordered: 03/31/23 Pharmacy: [id number] [facility] Is this request for a controlled substance? No Urine Drug Screen:No results found for this or any previous visit. Patient Phone Numbers Labs: Lab Results Component Value Date/Time CREAT 0.8 02/16/2023 02:46 PM CREAT 0.8 01/17/2018 02:35 PM POTASSIUM 4.5 02/16/2023 02:46 PM POTASSIUM 4.2 01/17/2018 02:35 PM TSH 1.28 01/17/2018 02:35 PM LDL 58 02/16/2023 02:46 PM LDL 77 01/17/2018 02:35 PM LDL 83 02/02/2017 09:33 AM ALT 33 02/16/2023 02:46 PM ALT 19 01/17/2018 02:35 PM HGBA1C 5.4 02/16/2023 02:46 PM HGBA1C 5.2 06/15/2012 02:58 PM documented in this encounter Plan of Treatment Upcoming Encounters Date Type Department Care Team (Late st Contact Info) Description 04/04/2024 10:30 AM EST Office Visit Palliative Medicine [facility] [address] [place] [id number] Frida Leonardo MD [address] [place] [address] 04/06/2024 1:00 PM EST Office Visit Neurology [facility] [address] [facility] [place] [address] Beth Sandhu CRNP [address] [place] [address] 09/25/2024 1:40 PM EDT Office Visit Family Practice [facility] [address] [place] [address] Alison Lopez, DO [address] [place] [address] 10/05/2024 2:00 PM EDT Office Visit Neurology [facility] [address] [facility] [place] [address] Michelet Shea DO [address] [place] [address] Pending Results Name Type Priority Associated Diagnoses Date /Time CBC WITH WBC DIFFERENTIAL Lab Routine Encounter for long-term (current) use of medications 04/02/2024 10:36 AM EST Scheduled Orders Name Type Priority Associated Diagnoses Orde r Schedule CBC WITH WBC DIFFERENTIAL Lab Routine Encounter for long-term (current) use of medications Expected: 03/29/2024 (Approximate), Expires: 03/29/2025 Health Maintenance Due Date Last Done Comments [...] D LEVEL ONCE IN A LIFETIME-USE SMARTSET# [id number] Completed 07/22/2010, 10/09/2009 Pneumococcal Vaccine: 65+ Years [...] as of this encounter Visit Diagnoses Diagnosis Encounter for long-term (current) use of medications- Primary Encounter for long-term (current) use of other medications documented in this encounter Advance Directives Documents on File Type Date Recorded Patient Coupon Manifest Clerk Expl anation Power of Freezer Unloader 01/06/2006 * Full Code (Latest Code Status [...] 3:23 PM 10/05/2004 3:23 PM Care Teams Field Laboratory Operator Relationship Specialty Start Date End Date Alison Lopez DO [address] [place] [address] PCP - General Family Medicine 07/14/16 documented as of this encounter
--- OUTSIDE RECORDS SUMMARY | 2024-09-15 12:09 | External Medical Summary | Summary of Care ---
Author Name Unknown Organization [facility] Address [address] [facility] [address] Phone [phone] Care Team Providers Care Die Operator Name Role Phone Jennifer Huynh DO Primary Care Provider [phone] Reason for Visit * Reason Comments Outpatient Testing Encounter Details Date Type Department Care Team (Late st Contact Info) Description 04/02/2024 10:30 AM EST Laboratory Laboratory, [facility] [address] [place] [address] [facility] [address] [place] [address] Dyslipidemia, goal LDL below 100; Encounter for long-term (current) use of medications Allergies Active Allergy Reactions Criticality Noted Date [...] Unstable angina 06/16/2012 06/27/2019 [employer] Other*[id number] 06/15/2012 06/22/2016 Overview (06/15/2012): Study Title: Genomic Markers for Patients with Cardiovascular Disease Project # [id number] [employer] Former Supervisor: Dilcia Calderon MD [phone] Chronic cholecystitis 05/28/20102016 ADVANCE DIRECTIVE INFORMATION 03/25/2010 [...] Industry Job Start Date Job End Date 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 [address] [place] [address] Jennifer Huynh, [address] [place] [address] 10/05/2024 2:00 PM EDT Office Visit Neurology [facility] [address] [place] [address] Michelet Shea DO [address] [place] [address] Pending Results Name Type Priority Associated Diagnoses Date /Time LIPID PANEL WITH DIRECT LDL IF TG IS HIGH Lab Routine Dyslipidemia, goal LDL below 100 04/02/2024 10:36 AM EST COMPREHENSIVE METABOLIC PANEL Lab Routine Dyslipidemia, goal LDL below 100 04/02/2024 10:36 AM EST CBC WITH WBC DIFFERENTIAL Lab Routine Encounter for long-term (current) use of medications 04/02/2024 10:36 AM EST CBC Lab Routine Encounter for long-term (current) use of medications 04/02/2024 10:36 AM EST DIFFERENTIAL, AUTOMATED Lab Routine Encounter for long-term (current) use of medications 04/02/2024 10:36 AM EST Health Maintenance Due Date Last Done Comments [...] D LEVEL ONCE IN A LIFETIME-USE SMARTSET# [id number] Completed 07/22/2010, 10/09/2009 Pneumococcal Vaccine: 65+ Years [...] as of this encounter Visit Diagnoses Diagnosis Dyslipidemia, goal LDL below 100 Other and unspecified hyperlipidemia Encounter for long-term (current) use of medications Encounter for long-term (current) use of other medications documented in this encounter Advance Directives Documents on File Type Date Recorded Patient Skip Miner Expl anation Power of Post Exchange Manager 01/06/2006 * Full Code (Latest Code Status [...] 3:23 PM 10/05/2004 3:23 PM Care Teams Die Operator Relationship Specialty Start Date End Date Jennifer Huynh DO [address] [place] [address] PCP - General Family Medicine 07/14/16 documented as of this encounter
--- OUTSIDE RECORDS SUMMARY | 2024-09-15 12:09 | External Medical Summary | Summary of Care ---
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 Name Role Phone Jennifer Huynh DO Primary Care Provider [phone] Reason for Referral * Evaluate & Treat - Unlimited Visits (Within 10 days (routine)) - Authorized Specialty Diagnoses / Procedures Referred By Aramis kwan Referred To Contact HOME CARE / Home Care Diagnoses Ambulatory dysfunction Jennifer Huynh DO [address] [facility] [address] Phone: tel: fax: Referral ID Status Reason Start Date Expiration Date Visits Requested Visits Authorized [id number] Authorized Specialty Services Required [phone] Question Answer Referral Priority Within 10 days (routine) Where should this appointment be scheduled? [facility] Comments Documentation of [id number] Encounter Addendum Patient Name: Marcella Baird I certify that this patient is under my care and that I, or a nurse practitioner or physician's assistant to the vice president working with me, had a [id number] encounter that meets the physician [id number] encounter requirements with this patient on: 03/28/24 The encounter with the patient was in whole, or in part, for the following medical condition, which is the primary reason for home health care (List medical condition): Gait dysfunction I certify that, based on my findings, the following services are medically necessary home health services: Physical Therapy To provide the following care/treatments: (All hospitalists not following the patient after discharge should complete this section): balance, general strengthening Primary Care Physician to follow home care plan of care after discharge: Jennifer Huynh My clinical findings support the need for the above services because: advanced age, dementia Further, I certify that my clinical findings support that this patient is homebound (i.e. Absences from home require considerable and taxing effort and are for medical reasons or catholic services or infrequently or of short duration when for other reason) because: Advanced age Physician Signature: Date of Signature: Physician Printed Name: Jennifer Huynh DO * Evaluate & Treat - Unlimited Visits (Within 10 days (routine)) - Authorized Specialty Diagnoses / Procedures Referred By Conttracee t Referred To Contact Hospice and Palliative Medicine / Palliative Medicine Diagnoses Dementia of the Alzheimer's type, with late onset, with delirium (HCC) Jennifer Huynh DO [address] [facility] [place] [address] Phone: tel: fax: Referral ID Status Reason Start Date Expiration Date Visits Requested Visits Authorized [id number] Authorized Specialty Services Required [phone] Question Answer Referral Priority Within 10 days (routine) [facility] should this appointment be scheduled? [facility] Reason for Referral: Neurological Disease Palliative Medicine To Address: Goals of Care Referral Location Office Reason for Visit * Reason Onset Date Comments Re-Check Recheck, memory loss progressing Medication Administration 03/28/2024 Flu an d/or Pneumo Inj Encounter Details Date Type Department Care Team (Late Contact Info) Description 03/28/2024 4:40 PM EST Office Visit Family [facility] [address] [place] [address] Jennifer Huynh, DO [address] [place] [address] Dementia of the Alzheimer's type, with late onset, with delirium (HCC)*; Ambulatory dysfunction; Dyslipidemia, goal LDL below 100; Need for prophylactic vaccination and inoculation against influenza; Risk and functional assessment Allergies Active Allergy Reactions Criticality Noted Date [...] 3 03/31/20 23 024 Discontin ued(Refil l) Donepezil HCl 10 MG Oral Tablet (Aricept) Take 1 Tablet by mouth in the morning. Take with meals/. 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) Not on file Not on file N ot on file documented as of this encounter Last Filed Vital Signs Vital Sign Reading Time Taken Comments Blood Pressure 124/62 03/28/2024 4:50 PM EST Pulse 60 03/28/2024 4:50 PM EST Temperature 36.3 °C (97.3 °F) 03/28/2024 4:50 PM ES T Respiratory Rate 16 03/28/2024 4:50 PM EST Oxygen Saturation - - Inhaled Oxygen Concentration - - Weight 61.2 kg (135 lb) 03/28/2024 4:50 PM EST Height - - Body Mass Index 24.69 08/30/2023 12:48 PM EDT documented in this encounter Patient Instructions * Patient Instructions* Maria Del Carmen Ocasio RN - 03/28/2024 4:50 PM EST Patient Instructions - Fall Prevention (This education is for all patients over 65 regardless of symptoms) Remember to take your current medications as prescribed. In order to prevent falls, you are encouraged to: Exercise Utilize assistive/adaptive devices Avoid multifocal lenses when walking Avoid hazards in home Maintain a regular toileting schedule Any questions please contact our office. Preventing Falls in the Home (This education is for all patients over 65 regardless of symptoms) As you get older, falls are more likely. That’s because your reaction time slows. Your muscles and joints may also get stiffer, making them less flexible. Illness, medications, and vision changes can also affect your balance. A fall could leave you unable to live on your own. To make your home safer, follow these tips: Floors Put nonskid pads under area rugs Remove throw rugs Replace worn floor coverings Tack carpets firmly to each step on carpeted stairs. Put nonskid strips on the edges of uncarpeted stairs Keep floors and stairs free of clutter and cords Arrange furniture so there are clear pathways Clean up any spills right away Bathrooms Install grab bars in the tub or shower Apply nonskid strips or put a nonskid rubber mat in the tub or shower Sit on a bath chair to bathe Use bathmats with nonskid backing Lighting Keep a flashlight in each room Put a nightlight along the pathway between the bedroom and the bathroom Ty Patient Education Copyright© 2008 - 2010 Ty except where otherwise noted Preventing Falls: Exercises to Improve Balance, Flexibility, Strength, and Staying Power (This education is for all patients over 65 regardless of symptoms) Certain types of exercises may help make you less likely to fall. Try the ones below. Or do other exercises that your healthcare provider suggests. Depending on your health, you may need to start slowly. Don’t let that stop you. Even small amounts of exercise can help you. Be sure to talk to yourhealthcare provider before starting any exercise program. Improve Balance Many types of exercise can help improve balance. Abdiaziz chi and yoga are good examples. Here’s another one to try. You can do it anytime and almost anywhere. Stand next to a counter or solid support. Push yourself up onto your tiptoes. Hold for 5 seconds. If you start to lose your balance, hold on to the counter. Rest and repeat 5 times. Work up to holding for 20 to 30 seconds, if you can. Increase Flexibility Being more flexible makes it easier for you to move around safely. Try exercises like the seated hamstring stretch. Sit in a chair and put one foot on a stool. Straighten your leg and reach with both hands down either side of your leg. Reach as far down your leg as you can. Hold for about 20 seconds. Go back to the starting position. Then repeat 5 times. Switch legs. Build Strength “Resistance” exercises help build strength. You can do them without equipment. Or you can use weights, elastic bands, or special machines. One such exercise is called the biceps curl. You can hold a 1 pound weight or even a can of soup. Do this exercise at least 3 times a week. Strive for everyday. Sit up straight in a chair. Keep your elbow close to your body and your wrist straight. Bend your arm, moving your hand up to your shoulder. Then slowly lower your arm. Repeat 5 times. Switch to the other arm. Build Your Staying Power “Aerobic” exercises make your heart and lungs stronger so you can keep moving longer. Walking and swimming are two of the best types of exercises you can do. Using a stationary bike is great, too. Find an aerobic exercise that you enjoy. Start slowly and build up. Even 5 minutes is helpful. Aimfor a goal of 30 minutes, at least 3 times a week. You don’t have to do 30 minutes in one session. Break it up and walk a little throughout the day. More Helpful Tips Start easy. Slowly work up to doing more. Talk with your healthcare provider about the best exercises for you. Call senior centers or health clubs about exercise programs. If needed, have a family member watch you walk every so often to check your stability. Exercise with a friend. Choose an activity you both enjoy. Try exercises that you can do anytime, anywhere. Here are two examples. Have someone with you when you first try these: Practice walking by placing one foot right in front of the other. Stand up and sit down 10 times. Repeat this throughout the day. [employer] Patient Education Copyright© 2008 - 2010 Ty except where otherwise noted. Preventing Falls: Moving Safely Using a Cane or Walker (This education is for all patients over 65 regardless of symptoms) Keep the cane away from your feet so you don’t trip. A walking aid, such as a cane or walker, can help you stay more independent and avoid falls. Remember to keep your walking aid within easy reach when you’re in a chair or in bed. And learn how to use it safely so you don’t injure yourself. Using a Cane If you have a stronger side, hold the cane on that side. Get your balance. Move the cane and your weaker leg forward. Support your weight on both the cane and your weaker side. Step with your stronger leg. Start again from step 1. If you’re using a folding walker, be sure you know how to lock it open. Check that it’s locked open before each use. Using a Walker Roll the walker (or lift it, if you’re using one without wheels) forward about 12 inches. Step forward with your weaker leg first. Use the walker to help keep your balance. Bring your other foot forward to the center of the walker. Start again from step 1. Helpful Tips Check with your healthcare provider about the right walking aid to use. Ask about a walker with a seat attached. Check the tips of your cane or walker to make sure they have nonskid covers. Move slowly from room to room. Don’t cisneros. Sit down to get dressed. Use a taty pack or backpack to keep your hands free. Get help for jobs that mean climbing, even on a stepstool. Ty Patient Education Copyright© 2008 - 2010 Ty except where otherwise noted. Urinary Incontinence Plan of Care Documentation: (This education is for all patients over 65 regardless of symptoms) Current medications reconciled. Patient encouraged to: Practice kegal exercises Provide education materials Use the restroom every 2 hours throughout the day Limit caffeine, alcohol, spicy foods and acidic foods Keep a bladder diary Limit fluid intake 3-4 hours before bed Lose weight Prevent constipation Take fluid pills at a time when you can get to the bathroom quickly Control sugar better if diabetic Limit fluid intake to 60 oz. per day Wear support stockings (TEDs)if you have edema Maria Del Carmen Ocasio RN 03/28/2024 Kegel Exercises Kegel exercises don’t require special clothing or equipment. They’re easy to learn and simple to do. And if you do them right, no one can tell you’re doing them, so they can be done almost anywhere. Your doctor, nurse, or physical therapist can answer any questions you have and help you get started. A Weak Pelvic Floor The pelvic floor muscles may weaken due to aging, and vaginal childbirth, injury, surgery, chronic cough, or lack of exercise. If the pelvic floor is weak, your bladder and other pelvic organs may sag out of place. The urethra may also open too easily and allow urine to leak out. Kegel exercises can help you strengthen your pelvic floor muscles so they can better support the pelvic organs and control urine flow. How Kegel Exercises Are Done Try each of the Kegel exercises described below. When you’re doing them, try not to move your leg, buttock, or stomach muscles. While you’re urinating, try to stop the flow of urine. Start and stop it as often as you can. Contract as if you were stopping your urine stream, but do it when you’re not urinating. Tighten your rectum as if trying not to pass gas. Contract your anus, but don’t move your buttocks. Helpful Hints Do your Kegels as often as you can. The more you do them, the faster you’ll feel the results. Pick an activity you do often as a reminder. For instance, do your Kegels every time you sit down. Tighten your pelvic floor before you sneeze, get up from a chair, cough, laugh, or lift. This protects your pelvic floor from injury and can help prevent urine leakage. Try to hold each Kegel for a slow count to five. You probably won’t be able to hold them for thatlong at first, but keep practicing. It will get easier as your pelvic floor gets stronger. Eventually, special weights that you place in your vagina may be recommended to help make your Kegels even more effective. Ty Patient Education Copyright© 2008 - 2010 Ty except where otherwise noted. Here are some helpful tips for your urinary incontinence: (This education is for all patients over 65 regardless of symptoms) Practice Kegel exercises Use the restroom every 2 hours throughout the day Limit caffeine, alcohol, spicy foods, and acidic foods Keep a bladder diary Limit fluid intake 3-4 hours before bed Lose weight Prevent constipation Take fluid pills at a time when can get to the bathroom quickly Control sugar better if diabetic Limit fluid intake to 60 oz. per day Any questions, please feel free to contact our office. documented in this encounter Progress Notes * Jennifer Huynh, - 04/04/2024 3:04 PM EST Subjective: Marcella Baird is a 83 year old female. Chief Complaint Patient presents with Re-Check Recheck, memory loss progressing Medication Administration Flu and/or Pneumo Inj HPI: Patient presents with her today. No acute complaints but he notes her memory is slowly getting worse. He now has to assist with ADLs. Denies agitation, pt is not very active. Is up and down a lot at night. 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 Hydrocortisone 2.5 % External Cream Apply topically to affected area 2 times a day. Apply to scaling are on the upper eyelids x 4 days then off 20 g 2 Metoprolol Tartrate 50 MG Oral Tablet (Lopressor) Take 1 Tablet by mouth in the morning and 1 Tablet before bedtime. 180 Tablet 2 Atorvastatin Calcium 40 MG Oral Tablet (Lipitor) Take 1 Tablet by mouth in the morning. 90 Tablet 1 Donepezil HCl 10 MG Oral Tablet (Aricept) Take 1 Tablet by mouth in the morning. Take with food.. 90 Tablet 3 Clopidogrel Bisulfate 75 MG Oral Tablet (pLAVix) Take 1 Tablet by mouth in the morning. 90 Tablet 1 No current facility-administered medications for this visit. Past Medical History: Diagnosis Date Alzheimer's dementia (HCC) severe Coronary artery disease Osteoporosis Transfusion history 08/14/2012 1 unit post-op at [facility] Past Surgical History: Procedure Laterality Date CARDIAC ANGIOPLASTY, PERCUTANEOUS, 1 ARTERY 06/15/2012 PTCA, CARDIAC ANGIOPLASTY, PERCUTANEOUS, 1 ARTERY performed by Dilcia Calderon MD at [facility] CARDIAC CATHETERIZATION REPORT 06/13/2012 prox LAD- 50%; first diagonal-80%;90% next diagonal; right - clear COLONOSCOPY 09/2006 Negative- repeat in 5 years COLONOSCOPY, DIAGNOSTIC (RECTUM) 05/02/2012 COLONOSCOPY FLEXIBLE PROXIMAL DIAGNOSTIC performed by Cameron Mack MD at ENDOSCOPY [facility] COLONOSCOPY, DIAGNOSTIC (RECTUM) 10/07/2020 diverticulosis / COLONOSCOPY FLEXIBLE PROXIMAL DIAGNOSTIC performed by Hector Carlson MD at ENDOSCOPY [facility] COLONOSCOPY, REMOVE LESION 04/2001 Hyperplastic polyp- repeat in 5 years DEXA SCAN/BONE MINERAL AXIAL 09/2006 Repeat in 3 years DEXA SCAN/BONE MINERAL PREIPH 09/2004 Unchanged. No Rx needed. Repeat - 2 years. DUPLEX CAROTID BILAT 07/08/2000 < 15 % occlusion bilaterally EXPLORATION OF ABDOMEN 08/2012 exploratory laparotomy , lysis of adhesions , release of small bowel obstruction, repair of umbilical hernia [facility] Dr. Sukhdev Beltran , assistant to the vice president Juan vázquez, [place] HEMORRHOIDECTOMY,EXTERNAL, 2 + COLUMNS 02/20/2008 EUA, Hemorrhoidectomy with LigaSure, [facility], Dr. Castillo INFORMATION 08/2003 Back surgery LAPAROSCOPY; CHOLECYSTECTOMY 05/15/2010 Cholecystectomy, Laproscopic , cholangiogram with a Chuck drain 05/15/2010 Dr. Tang at [facility] LAPOROSCOPIC HERNIA REPAIR EDU 1994 LIGATE/CUT OVIDUCT(S) Tubal Ligation PROCTOSIGMOIDOSCOPY DX 05/1990 Sigmoidoscopy PROCTOSIGMOIDOSCOPY DX 11/1999 polyp at 12 cm- see cololonoscopy report. RECONSTRUCTION OF NOSE AGE 34 RHINOPLASTY REMOVAL OF APPENDIX 07/1994 Appendectomy, per pt still has appendix - on opposite side, no mention on most recent CT abd REPAIR RECURRENT INGUINAL HERNIA 07/1994 RIGHT US PELVIS TRANS-ABDOMINAL 05/1990 VASC DUPLEX CAROTID BILAT 02/2010 NO hemodynamic restriction to flow bilaterally Review of patient's allergies indicates: Allergen Reactions Penicillins Edema face/lips/tongue and Hives Objective: BP 124/62 (BP Site: Left Arm, BP Position: Sitting, BP Cuff Size: Regular) | Pulse 60 | Temp 97.3 °F (36.3 °C) (Tympanic) | Resp 16 | Wt 135 lb (61.2 kg) | BMI 24.69 kg/m² | BSA 1.64 m² Review of Systems: As per HPI, all other ROS neg. Physical Exam: General: alert, healthy and no distress, pleasantly confused Heart: regular rate & rhythm, no murmurs and no gallops Lungs: chest symmetric with normal AP diameter, no chest deformities noted, lungs clear to auscultation Extremities: no joint deformities, effusion, or inflammation, no edema Dementia of the Alzheimer's type, with late onset, with delirium (HCC) (Primary) - PALLIATIVE CARE REFERRAL OP Ambulatory dysfunction - HOME HEALTH REFERRAL OP Will see if can assist with balance/fall prevention Dyslipidemia, goal LDL below 100 - LIPID PANEL WITH DIRECT LDL IF TG IS HIGH; Future; Expected date: 03/28/2024 - COMPREHENSIVE METABOLIC PANEL; Future; Expected date: 03/28/2024 Need for prophylactic vaccination and inoculation against influenza - INFLUENZA VAC., TRIVALENT, HD, PF, 65 AND ABOVE, 0.5 ML IM (FLUZONE HD) Risk and functional assessment Follow up: In 6 months Jennifer Huynh DO * Maria Del Carmen Ocasio RN - 03/28/2024 4:50 PM EST Fall Risk Plan of Care Documentation: - Current medications reconciled Patient encouraged to: - Exercise - Provide education materials for Core strengthening - Utilize assistive/adaptive devices - Provide education materials - Avoid multifocal lenses when walking - Avoid hazards in home - Provide education materials - Maintain a regular toileting schedule Maria Del Carmen Ocasio RN 03/28/2024 Urinary Incontinence Plan of Care Documentation: (This education is for all patients over 65 regardless of symptoms) Current medications reconciled. Patient encouraged to: Practice kegal exercises Provide education materials Use the restroom every 2 hours throughout the day Limit caffeine, alcohol, spicy foods and acidic foods Keep a bladder diary Limit fluid intake 3-4 hours before bed Lose weight Prevent constipation Take fluid pills at a time when you can get to the bathroom quickly Control sugar better if diabetic Limit fluid intake to 60 oz. per day Wear support stockings (TEDs)if you have edema Maria Del Carmen Ocasio RN 03/28/2024 PRE - ADMINISTRATION DOCUMENTATION Are you experiencing any cold symptoms or fever? No Have you had Guillain-Fulton Syndrome (an illness that causes paralysis) within the last 6 weeks? No Have you had the flu shot in the past? YES Have you ever had a reaction to the flu shot? No Maria Del Carmen Ocasio RN, 03/28/2024 4:54 PM Immunization Administration Documentation Time Out Procedure Performed: Yes Patient Identified (Ask Name/Date of ): Yes Does the patient have a fever greater than 101 degrees today? No Patient allergic to latex? No VFC Stock: No Immunization(s) verified: Yes, Immunization Name: Flu, VIS Sheet(s) given: Yes Verified Side and Site: Yes Verified Shot(s) with Parent(s)/Patient: Yes documented in this encounter Plan of Treatment Upcoming Encounters Date Type Department Care Team (Late st Contact Info) Description 04/06/2024 1:00 PM EST Office Visit Neurology [facility] [address] [place] [address] [facility] Sandhu [facility] [address] [facility] [address] 09/25/2024 1:40 PM EDT Office Visit Family Practice [facility] [address] [facility] [place] [address] Jennifer Huynh, DO [address] [place] [address] 10/05/2024 2:00 PM EDT Office Visit [facility] [employer] [facility] [address] [facility] [address] Michelet Shea, DO [address] [facility] [place] [address] Scheduled Referrals Name Type Priority Associated Diagnoses Orde r Schedule PALLIATIVE CARE REFERRAL OP Referral Within 10 days (routine) Dementia of the Alzheimer's type, with late onset, with delirium (HCC) Ordered: 03/28/2024 HOME HEALTH REFERRAL OP Referral Within 10 days (routine) Ambulatory dysfunction Ordered: 03/28/2024 Health Maintenance Due Date Last [...] D LEVEL ONCE IN A LIFETIME-USE SMARTSET# [id number] Completed 07/22/2010, 10/09/2009 Pneumococcal Vaccine: 65+ Years [...] Not on filedocumented as of this encounter Results * (ABNORMAL) COMPREHENSIVE METABOLIC PANEL (04/02/2024 10:36 AM EST) BUN 13 6 - 20 mg/dL 04/02/2024 4:46 PM EST [facility] CREATININE 0.7 0.5 - 1.0 mg/dL 04/02/2024 4:46 PM EST [facility] EGFR 80 >=60 mL/min 04/02/2024 4:46 PM EST [facility] Comment:eGFR is calculated b ased on the CKD-EPI 2020 equation. SODIUM 140 135 - 146 mmol/L 04/02/2024 4:46 PM EST [facility] POTASSIUM 3.8 3.5 - 5.1 mmol/L 04/02/2024 4:46 PM EST [facility] CHLORIDE 103 98 - 107 mmol/L 04/02/2024 4:46 PM EST [facility] CO2 28 22 - 32 mmol/L 04/02/2024 4:46 PM EST [facility] ANION GAP 9 7 - 15 mmol/L 04/02/2024 4:46 PM EST [facility] GLUCOSE 98 70 - 120 mg/dL 04/02/2024 4:46 PM EST [facility] Albumin 4.1 3.8 - 5.0 g/dL 04/02/2024 4:46 PM EST [facility] AST 25 10 - 35 U/L 04/02/2024 4:46 PM EST [facility] Alkaline Phosphatase 142(H) 35 - 130 U/L 04/02/2024 4:46 PM EST [facility] Bilirubin, Total 0.4 <=1.2 mg/dL 04/02/2024 4:46 PM EST [facility] CALCIUM 9.7 8.4 - 10.2 mg/dL 04/02/2024 4:46 PM EST [facility] Protein 6.6 6.0 - 8.3 g/dL 04/02/2024 4:46 PM EST [facility] ALT 28 10 - 35 U/L 04/02/2024 4:46 PM EST [facility] Blood Venous blood specimen / Unknown Venipuncture / Unknown 04/02/2024 10:36 AM EST 04/02/2024 10:36 AM EST us Jennifer Huynh DO LAB BLOOD ORDERABLES Final Result LABORATORY [facility] [address] [place] [address] * LIPID PANEL WITH DIRECT LDL IF TG IS HIGH (04/02/2024 10:36 AM EST) Triglycerides 111 <=174 mg/dL 04/02/2024 4:46 PM EST [facility] Comment: Triglyceride Reference Ranges (mg/dL): <150 Acceptable 150-174 Borderline high 175-499 High >=500 Very high Cholesterol 134 <200 mg/dL 04/02/2024 4:46 PM EST [facility] Comment: Total Cholesterol Reference Ranges (mg/dL): <200 Desirable 200-239 Borderline high >=240 High HDL Cholesterol 52 >49 mg/dL 4:46 PM EST [facility] Comment: HDL Cholesterol Reference Ranges (mg/dL): >=60 High (Desirable) <50 Low (Undesirable) For Females <40 Low (Undesirable) For Males Non-HDL Cholesterol 82 <=159 mg/dL 04/02/2024 4:46 PM EST [facility] Comment: Non-HDL Cholesterol Reference Range (mg/dL): <100 Target level for high risk ASCVD patient <130 Optimal for general population 130-159 Near optimal for general population 160-189 Borderline High 190-219 High >=220 Very High LDL Cholesterol 60 <=129 mg/dL 04/02/2024 4:46 PM EST [facility] Comment: LDL Cholesterol Reference Ranges (mg/dL): <70 Target level for high risk ASCVD patient <100 Optimal for general population 100-129 Near optimal for general population 130-159 Borderline high 160-189 High >=190 Very high Blood Venous blood specimen / Unknown Venipuncture / Unknown 04/02/2024 10:36 AM EST 04/02/2024 10:36 AM EST Jennifer Huynh DO LAB BLOOD ORDERABLES Final Result [facility] [address] [place] [address] documented in this encounter Visit Diagnoses Diagnosis Dementia of the Alzheimer's type, with late onset, with delirium (HCC)- Primary Alzheimer's disease Ambulatory dysfunction Dyslipidemia, goal LDL below 100 Other and unspecified hyperlipidemia Need for prophylactic vaccination and inoculation against influenza Risk and functional assessment Screening for unspecified condition documented in this encounter Advance Directives Documents on File Type Date Recorded Patient Quality Assurance Representative Expl anation Power of Practice Manager 01/06/2006 * Full Code (Latest Code [...] 3:23 PM 10/05/2004 3:23 PM Care Teams Frame Gate Mortiser Operator Relationship Specialty Start Date End Date Jennifer Huynh DO [address] [facility] [place] [address] PCP - General Family Medicine 07/14/16 documented as of this encounter"
--- OUTSIDE RECORDS SUMMARY | 2024-09-15 12:09 | External Medical Summary | Summary of Care ---
Author Name Unknown Organization [facility] Address [address] [facility] [place] [address] Phone [phone] Care Team Providers Care Sign Board Erector Name Role Phone Jennifer Huynh DO Primary Care Provider [phone] Reason for Visit * Reason Onset Date Comments Advice 04/04/2024 [facility] Home Health Encounter Details Date Type Department Care Team (Late st Contact Info) Description 04/04/2024 Telephone Family Practice [facility] [address] [place] [address] Jennifer Huynh DO [address] [place] [address] Advice ([facility] Home Health ) Allergies Active Allergy Reactions Criticality Noted Date [...] Unstable angina 06/16/2012 06/27/2019 [employer] Other*[id number] 06/15/2012 06/22/2016 Overview (06/15/2012): Study Title: Genomic Markers for Patients with Cardiovascular Disease Project # [id number] Cutting And Boning Supervisor: Dilcia Calderon MD [phone] Chronic cholecystitis 05/28/20102016 ADVANCE DIRECTIVE INFORMATION 03/25/2010 [...] Industry Job Start Date Job End Date 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 They need Dr Huynh's completed note from 03/28 visit. They already have order-gait dysfunction When done, we can fax to [phone] * Telephone Encounter - Jayna Zavaleta OSA - 04/04/2024 1:58 PM EST Reason for patient's call: Ileana, [facility], received a Home Health PT referral Caller was unable to be transferred to the nurse line in the allotted time. Please return call. documented in this encounter Plan of Treatment Upcoming Encounters Date Type Department Care Team (Late st Contact Info) Description 04/06/2024 1:00 PM EST Office Visit Neurology [facility] [address] [facility] [place] [address] Beth Sandhu CRNP [address] [place] [address] 09/25/2024 1:40 PM EDT Office Visit Family Practice [facility] [address] [facility] [address] Jennifer Huynh DO [address] [facility] [address] 10/05/2024 2:00 PM EDT Office Visit Neurology [facility] [address] [facility] [place] [address] Michelet Shea DO [address] [place], [place] [id number] Health Maintenance Due Date Last Done Comments [...] D LEVEL ONCE IN A LIFETIME-USE SMARTSET# [id number] Completed 07/22/2010, 10/09/2009 Pneumococcal Vaccine: 65+ Years [...] Documents on File Type Date Recorded Patient Administrative Office Clerk Expl anation Power of Cutting Table Operator 01/06/2006 * Full Code (Latest Code [...] 3:23 PM 10/05/2004 3:23 PM Care Teams Sign Board Erector Relationship Specialty Start Date End Date Jennifer Huyhn DO [address] [place] [address] PCP - General Family Medicine 07/14/16 documented as of this encounter
--- OUTSIDE RECORDS SUMMARY | 2024-09-15 12:09 | External Medical Summary | Summary of Care ---
Author Name Unknown Organization [facility] Address [address] [facility] [place] [address] Phone [phone] Care Team Providers Care Millinery Salesperson Name Role Phone Jennifer Huynh DO Primary Care Provider [phone] Reason for Referral * Ancillary Services (Within 10 days (routine)) - Authorized Specialty Diagnoses / Procedures Referred By Contac t Referred To Contact Electric Wheelchair Repairer Diagnoses Vascular dementia without behavioral disturbance (HCC) Dementia of the Alzheimer's type, with late onset, with delirium (HCC) Jennifer Huynh DO [address] [place] [address] Phone: tel: fax: Referral ID Status Reason Start Date Expiration Date Visits Requested Visits Authorized [id number] Authorized Ancillary Services Required 04/17/[phone] Question Answer Referral Priority Within 10 days (routine) Where should this appointment be scheduled? [facility] Comments Please select the speciality above. If what you are looking for is not found in the speciality list, indicate where this patient is to be seen in this comment area. Reason for Visit * Reason Onset Date Comments Home Health 04/17/2024 FYI 04/17/2024 Encounter Details Date Type Department Care Team (Late Contact Info) Description 04/17/2024 Telephone Family Practice [facility] [address] [place] [address] Jennifer Huynh DO [address] [place] [address] Home Health; FYI (/) Allergies Active Allergy Reactions Criticality Noted Date Comments Penicillins Edema face/lips/tongue,Hives High 1996 documented as of this encounter (statuses as of 04/17/2024) Medications ASPIRIN 81 MG PO CHEWIndications:CA D [...] before bedtime. 180 Tablet 2 4 Active Donepezil HCl 10 MG Oral [...] the morning. 90 Tablet 3 4 Active documented as of this encounter (statuses as of 04/17/2024) Active Problems Problem Noted Date Diagnosed Date [...] as of this encounter (statuses as of 04/17/2024) Resolved Problems Problem Noted Date Diagnosed Date Resolved Date Prediabetes 06/28/2017 10/24/2018 Overview: Per Prediabetes protocol #1 Paroxysmal SVT (supraventricular tachycardia) 01/02/20 13 11/22/2019 Unstable angina 06/16/2012 06/27/2019 [employer] Other*[id number] 06/15/2012 06/22/2016 Overview (06/15/2012): Study Title: Genomic Markers for Patients with Cardiovascular Disease Project # [id number] Acoustical Logging Engineer: Dilcia Calderon MD [phone] Chronic cholecystitis 05/28/20102016 ADVANCE DIRECTIVE INFORMATION 03/25/2010 03/19/2024 Overview (09/15/2006): Pt has a living will on file in this office Dyslipidemia, goal to be determined 04/24/2009 07/02/2009 Overview (04/24/2009): Per Lipid Taxonomy. PURE HYPERCHOLESTEROLEM 09/09/200404/15 Overview (04/24/2009): Per Lipid Taxonomy. 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 on file Not on file N ot on file documented as of this encounter Miscellaneous Notes * Telephone Encounter - Maria Del Carmen Ocasio RN - 04/17/2024 4:16 PM EST Faxed * Telephone Encounter - Jennifer Huynh DO - 04/17/2024 3:53 PM EST apron worker referral placed Please fax to [facility] * Telephone Encounter - Judie Jiang LPN - 04/17/2024 3:27 PM EST HH Concerns Sakshi, Calling from: [facility] Report/Concerns of: dementia Symptoms: none Vitals: T 97.7 P 57 RR 16 BP 110/70 SP O2 94 Lung sounds clear Weight n/a Blood sugar n/a Narrative: Jayna calling from [facility] HH. Asking for an order for the medical management trainer to come in. is concerned if something happens to him, where his would end up. They have no family in the area. She is good physical condition, just not good mentally with the dementia. Call back Jayna with any advice or orders at [phone] Please fax new orders to [facility] Home Health documented in this encounter Plan of Treatment Upcoming Encounters Date Type Department Care Team (Late st Contact Info) Description 06/06/2024 12:00 PM EST Office Visit Palliative Medicine [facility] [address] [place] [address] Frida Leonardo MD [address] [place] [address] 09/25/2024 1:40 PM EDT Office Visit Family Practice [facility] [address] [place] [address] Jennifer Huynh DO [address] [place] [address] 10/05/2024 2:00 PM EDT Office Visit Neurology [facility] [address] [place] [address] Michelet Shea DO [address] [facility] [address] Scheduled Referrals Name Type Priority Associated Diagnoses Orde r Schedule OTHER REFERRAL OP Referral Within 10 days (routine) Vascular dementia without behavioral disturbance (HCC) Dementia of the Alzheimer's type, with late onset, with delirium (HCC) Ordered: 04/17/2024 Health Maintenance Due Date Last Done Comments [...] D LEVEL ONCE IN A LIFETIME-USE SMARTSET# [id number] Completed 07/22/2010, 10/09/2009 Pneumococcal Vaccine: 65+ Years [...] behavioral disturbance (HCC)- Primary Vascular dementia, uncomplicated Dementia of the Alzheimer's type, with late onset, with delirium (HCC) Alzheimer's disease documented in this encounter Advance Directives Documents on File Type Date Recorded Patient C 40A Crew Chief Expl anation Power of Seismograph Computer 01/06/2006 * Full Code (Latest Code Status [...] 3:23 PM 10/05/2004 3:23 PM Care Teams Millinery Salesperson Relationship Specialty Start Date End Date Jennifer Huynh DO [address] [place] [address] PCP - General Family Medicine 07/14/16 documented as of this encounter
--- OUTSIDE RECORDS SUMMARY | 2024-09-15 12:09 | External Medical Summary | Summary of Care ---
Author Name Unknown Organization [facility] Address [address] [facility] [place] [address] Phone [phone] Care Team Providers Care Welder Production Line Arc Name Role Phone Alison Lopez DO Primary Care Provider [phone] Reason for Visit * Reason Onset Date Comments Medication Refill 05/31/2024 Encounter Details Date Type Department Care Team (Late st Contact Info) Description 05/31/2024 Refill Family Practice [facility] [address] [place] [address] Alison Lopez DO [address] [place] [address] Allergies Active Allergy Reactions Criticality Noted Date Comments Penicillins Edema face/lips/tongue,Hives High 1996 documented as of this encounter (statuses as of 05/31/2024) Medications ASPIRIN 81 MG PO CHEWIndications:CA D [...] off 20 g 2 12/23/19 23 Active Donepezil HCl 10 MG Oral Tablet (Aricept) Take 1 Tablet by mouth in the morning. Take with food.. 90 Tablet 3 01/20/20 24 Active Clopidogrel Bisulfate 75 MG Oral Tablet (pLAVix) Take 1 Tablet by mouth in the morning. 90 Tablet 1 03/29/20 24 Active Atorvastatin Calcium 40 MG Oral Tablet (Lipitor)Indicatio ns:Dyslipidemia, goal LDL below 100 Take 1 Tablet by mouth in the morning. 90 Tablet 3 04/13/20 24 Active Metoprolol Tartrate 50 MG Oral Tablet (Lopressor) Take 1 Tablet by mouth in the morning and 1 Tablet before bedtime. 180 Tablet 2 05/31/19 25 Active Metoprolol Tartrate 50 MG Oral Tablet (Lopressor) Take 1 Tablet by mouth in the morning and 1 Tablet before bedtime. 180 Tablet 2 08/19/19 24 025 Discontin ued(Refil l) documented as of this encounter (statuses as of 05/31/2024) Active Problems Problem Noted Date Diagnosed Date [...] as of this encounter (statuses as of 05/31/2024) Resolved Problems Problem Noted Date Diagnosed Date Resolved Date Prediabetes 06/28/2017 10/24/2018 Overview: Per Prediabetes protocol #1 Paroxysmal SVT (supraventricular tachycardia) 01/02/20 13 11/22/2019 Unstable angina 06/16/2012 06/27/2019 [employer] Other*[id number] 06/15/2012 06/22/2016 Overview (06/15/2012): Study Title: Genomic Markers for Patients with Cardiovascular Disease Project # [id number] Restaurant Supervisor: Dilcia Calderon MD [phone] Chronic cholecystitis 05/28/20102016 ADVANCE DIRECTIVE INFORMATION 03/25/2010 03/19/2024 Overview (09/15/2006): Pt has a living will on file in this office Dyslipidemia, goal to be determined 04/24/2009 07/02/2009 Overview (04/24/2009): Per Lipid Taxonomy. PURE HYPERCHOLESTEROLEM 09/09/200404/15 Overview (04/24/2009): Per Lipid Taxonomy. 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 Authorizing Provider: ALISON LOPEZ * Telephone Encounter - Manisha Green, [facility] - 05/31/2024 4:16 PM EST Pending Prescriptions: Disp Refills Metoprolol Tartrate 50 MG Oral Tablet (Lop*180 Ta*2 Sig: Take 1 Tablet by mouth in the morning and 1 Tablet before bedtime. * Telephone Encounter - Manisha Green RPh - 05/31/2024 4:16 PM EST Unable to authorize medication refills for pended medication(s) at this time. Part of the protocol criteria used for refill authorization was not satisfied. Patient's HR is greater than 100. Please approve if appropriate. Thanks, Manisha Green PharmD Clinical Pharmacist [facility] ([facility]) [phone] 05/31/2024,4:16 PM documented in this encounter Plan of Treatment Upcoming Encounters Date Type Department Care Team (Late st Contact Info) Description 06/06/2024 12:00 PM EST Office Visit Palliative Medicine [facility] [address] [place] [phone] Frida Leonardo MD [address] [place], [place] [id number] 09/25/2024 1:40 PM EDT Office Visit Family Practice [facility] [address] [facility] [place] [address] Alison Lopez, [address] [facility] [place] [address] 10/05/2024 2:00 PM EDT Office Visit Neurology [facility] [address] [place] [address] Michelet Shea DO [address] [place] [address] Health Maintenance Due Date Last Done Comments [...] D LEVEL ONCE IN A LIFETIME-USE SMARTSET# [id number] Completed 07/22/2010, 10/09/2009 Pneumococcal Vaccine: 50+ Years [...] Documents on File Type Date Recorded Patient Waiter/Waitress Second Class Expl anation Power of Oyster Culler 01/06/2006 * Full Code (Latest Code Status [...] 3:23 PM 10/05/2004 3:23 PM Care Teams Welder Production Line Arc Relationship Specialty Start Date End Date Alison Lopez DO [address] [place] [address] PCP - General Family Medicine 07/14/16 documented as of this encounter
--- OUTSIDE RECORDS SUMMARY | 2024-09-15 12:09 | External Medical Summary | Summary of Care ---
Author Name Unknown Organization [facility] Address [address] [facility] [place] [address] Phone [phone] Care Team Providers Care Service Delivery Manager Name Role Phone Alison Lopez DO Primary Care Provider [phone] Reason for Visit * Reason Onset Date Comments Medication Refill 04/12/2024 Encounter Details Date Type Department Care Team (Late st Contact Info) Description 04/12/2024 Refill Family Practice [facility] [address] [place] [address] Alison Lopez DO [address] [place] [address] Dyslipidemia, goal LDL below 100 Allergies Active Allergy Reactions Criticality Noted Date Comments Penicillins Edema face/lips/tongue,Hives High 1996 documented as of this encounter (statuses as of 04/13/2024) Medications ASPIRIN 81 MG PO CHEWIndications:CA D [...] bedtime. 180 Tablet 2 08/19/19 24 Active Donepezil HCl 10 MG Oral [...] morning. 90 Tablet 3 04/13/20 24 Active Atorvastatin Calcium 40 MG Oral Tablet (Lipitor)Indicatio ns:Dyslipidemia, goal LDL below 100 Take 1 Tablet by mouth in the morning. 90 Tablet 1 10/21/19 24 024 Discontin ued(Refil l) documented as of this encounter (statuses as of 04/13/2024) Active Problems Problem Noted Date Diagnosed Date [...] as of this encounter (statuses as of 04/13/2024) Resolved Problems Problem Noted Date Diagnosed Date Resolved Date Prediabetes 06/28/2017 10/24/2018 Overview: Per Prediabetes protocol #1 Paroxysmal SVT (supraventricular tachycardia) 01/02/20 13 11/22/2019 Unstable angina 06/16/2012 06/27/2019 [employer] Other*[id number] 06/15/2012 06/22/2016 Overview (06/15/2012): Study Title: Genomic Markers for Patients with Cardiovascular Disease Project # [id number] Freight Receiver: Dilcia Calderon MD [phone] Chronic cholecystitis 05/28/20102016 ADVANCE DIRECTIVE INFORMATION 03/25/2010 03/19/2024 Overview (09/15/2006): Pt has a living will on file in this office Dyslipidemia, goal to be determined 04/24/2009 07/02/2009 Overview (04/24/2009): Per Lipid Taxonomy. PURE HYPERCHOLESTEROLEM 09/09/200404/15 Overview (04/24/2009): Per Lipid Taxonomy. 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 on file Not on file N ot on file documented as of this encounter Miscellaneous Notes * Telephone Encounter - Bobo Ruiz RPh - 04/13/2024 2:11 PM EST Signed Prescriptions: Disp Refills Atorvastatin Calcium 40 MG Oral Tablet (Li*90 Tab*3 Sig: Take 1 Tablet by mouth in the morning.Authorizing Provider: ALISON LOPEZ User: BOBO RUIZ documented in this encounter Plan of Treatment Upcoming Encounters Date Type Department Care Team (Late st Contact Info) Description 06/06/2024 12:00 PM EST Office Visit [facility] [address] Frida Leonardo MD [address] [place] [address] [place] [address] 09/25/2024 1:40 PM EDT Office Visit Family Practice [facility] [address] [place] [address] Alison Lopez, DO [address] [place] [address] 10/05/2024 2:00 PM EDT Office Visit Neurology [facility] [address] [facility] [address] Michelet Shea, DO [address] [place] [address] Health Maintenance Due Date Last Done Comments [...] D LEVEL ONCE IN A LIFETIME-USE SMARTSET# [id number] Completed 07/22/2010, 10/09/2009 Pneumococcal Vaccine: 65+ Years [...] LDL below 100 Other and unspecified hyperlipidemia documented in this encounter Advance Directives Documents on File Type Date Recorded Patient [employer] Crewmember Expl anation Power of Pantograph Ii Engraver 01/06/2006 * Full Code (Latest Code Status [...] 3:23 PM 10/05/2004 3:23 PM Care Teams Service Delivery Manager Relationship Specialty Start Date End Date Alison Lopez DO [address] [place] [address] PCP - General Family Medicine 07/14/16 documented as of this encounter
--- OUTSIDE RECORDS SUMMARY | 2024-09-15 12:09 | External Medical Summary | Summary of Care ---
Author Name Unknown Organization [facility] Address [address] [facility] [place] [address] Phone [phone] Care Team Providers Care Envelope Machine Adjuster Name Role Phone Jennifer Huynh DO Primary Care Provider [phone] Reason for Visit * Reason Onset Date Comments Palliative Care Follow-up 04/05/2024 Encounter Details Date Type Department Care Team (Late st Contact Info) Description 04/05/2024 Telephone Palliative Medicine, [address] [place] [address] Frida Leonardo MD [address] [place] [address] Palliative Care Follow-up Allergies Active Allergy Reactions Criticality Noted Date Comments Penicillins Edema face/lips/tongue,Hives High 1996 documented as of this encounter (statuses as of 04/05/2024) Medications ASPIRIN 81 MG PO CHEWIndications:CA D [...] as of this encounter (statuses as of 04/05/2024) Active Problems Problem Noted Date Diagnosed Date [...] as of this encounter (statuses as of 04/05/2024) Resolved Problems Problem Noted Date Diagnosed Date Resolved Date Prediabetes 06/28/2017 10/24/2018 Overview: Per Prediabetes protocol #1 Paroxysmal SVT (supraventricular tachycardia) 01/02/20 13 11/22/2019 Unstable angina 06/16/2012 06/27/2019 [employer] Other*[id number] 06/15/2012 06/22/2016 Overview (06/15/2012): Study Title: Genomic Markers for Patients with Cardiovascular Disease Project # [id number] Pole Setter: Dilcia Calderon MD [phone] Chronic cholecystitis 05/28/20102016 ADVANCE DIRECTIVE INFORMATION 03/25/2010 03/19/2024 Overview (09/15/2006): Pt has a living will on file in this office Dyslipidemia, goal to be determined 04/24/2009 07/02/2009 Overview (04/24/2009): Per Lipid Taxonomy. PURE HYPERCHOLESTEROLEM 09/09/200404/15 Overview (04/24/2009): Per Lipid Taxonomy. 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 and to expect a call from them Scheduled next f/u with Dr. Leonardo on 06/06 at 12pm at [facility] documented in this encounter Plan of Treatment Upcoming Encounters Date Type Department Care Team (Late st Contact Info) Description 04/06/2024 1:00 PM EST Office Visit Neurology [facility] [address] [facility] [address] [place] [address] Beth Sandhu CRNP [address] [place] [address] 06/06/2024 12:00 PM EST Office Visit Palliative Medicine [facility] [address] [place] [address] Frida Leonrado MD [address] [place], [place] [address] [address] 09/25/2024 1:40 PM EDT Office Visit Family Practice [facility] [address] [place] [address] Amina Jennifer M, DO [address] [place] [address] 10/05/2024 2:00 PM EDT Office Visit Neurology [facility] [place] [address] [place] [address] Michelet Shea, DO [address] [place] [facility] [address] Health Maintenance Due Date Last Done Comments [...] D LEVEL ONCE IN A LIFETIME-USE SMARTSET# [id number] Completed 07/22/2010, 10/09/2009 Pneumococcal Vaccine: 65+ Years [...] Documents on File Type Date Recorded Patient Knit Goods Mender Expl anation Power of Gelatin Plant Supervisor 01/06/2006 * Full Code (Latest Code Status [...] 3:23 PM 10/05/2004 3:23 PM Care Teams Envelope Machine Adjuster Relationship Specialty Start Date End Date Jennifer Huynh DO [address] [place] [address] PCP - General Family Medicine 07/14/16 documented as of this encounter
--- OUTSIDE RECORDS SUMMARY | 2024-09-15 12:09 | External Medical Summary | Summary of Care ---
Author Name Unknown Organization [facility] Address [address] [facility] [place] [address] Phone [phone] Care Team Providers Care Resilient Tile Installer Name Role Phone Jennifer Huynh DO Primary Care Provider [phone] Reason for Referral * Evaluate & Treat - Unlimited Visits (Within 10 days (routine)) - Authorized Specialty Diagnoses / Procedures Referred By Aramis kwan Referred To Contact HOME CARE / Home Care Diagnoses Ambulatory dysfunction Jennifer Huynh DO [address] [facility] [address] Phone: tel: fax: Referral ID Status Reason Start Date Expiration Date Visits Requested Visits Authorized [id number] Authorized Specialty Services Required 4 [phone] Question Answer Referral Priority Within 10 days (routine) Where should this appointment be scheduled? Candido Comments Documentation of Tuhf-zp-Jyfh Encounter Addendum Patient Name: Marcella Baird I certify that this patient is under my care and that I, or a nurse practitioner or physician's accounting assistant working with me, had a ukjw-cm-eltp encounter that meets the physician cmhx-ej-[id number] encounter requirements with this patient on: 03/28/24 [...] effort and are for medical reasons or pentecostal services or infrequently or of short duration [...] with delirium (HCC) Jennifer Huynh DO [address] [facility] [place] [address] Phone: tel: fax: Referral ID Status Reason Start Date Expiration Date Visits Requested Visits Authorized [id number] Authorized Specialty Services Required 4 [phone] [...] 03/28/2024 4:40 PM EST Office Visit Family [facility] [address] [place] [address] Jennifer Huynh, DO [address] [place] [address] Dementia of the Alzheimer's type, with late onset, with delirium (HCC)*; Ambulatory dysfunction; Dyslipidemia, goal LDL below 100; Need for prophylactic vaccination and inoculation against influenza; Risk and functional assessment Allergies Active Allergy Reactions Criticality Noted Date Comments Penicillins Edema face/lips/tongue,Hives High 1996 documented as of this encounter (statuses as of 04/10/2024) Medications ASPIRIN 81 MG PO CHEWIndications:CA D [...] as of this encounter (statuses as of 04/10/2024) Active Problems Problem Noted Date Diagnosed Date [...] as of this encounter (statuses as of 04/10/2024) Resolved Problems Problem Noted Date Diagnosed Date Resolved Date Prediabetes 06/28/2017 10/24/2018 Overview: Per Prediabetes protocol #1 Paroxysmal SVT (supraventricular tachycardia) 01/02/20 13 11/22/2019 Unstable angina 06/16/2012 06/27/2019 [employer] Other*[id number] 06/15/2012 06/22/2016 Overview (06/15/2012): Study Title: Genomic Markers for Patients with Cardiovascular Disease Project # [id number] Mechanical Manufacturing Technician: Dilcia Calderon MD [phone] Chronic cholecystitis 05/28/20102016 ADVANCE DIRECTIVE INFORMATION 03/25/2010 03/19/2024 Overview (09/15/2006): Pt has a living will on file in this office Dyslipidemia, goal to be determined 04/24/2009 07/02/2009 Overview (04/24/2009): Per Lipid Taxonomy. PURE HYPERCHOLESTEROLEM 09/09/200404/15 Overview (04/24/2009): Per Lipid Taxonomy. 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 Repeat this throughout the day. [employer] Patient Education Copyright© 2008 - 2010 Ty [...] Transfusion history 08/14/2012 1 unit post-op at [facility] Past Surgical History: Procedure Laterality Date CARDIAC ANGIOPLASTY, PERCUTANEOUS, 1 ARTERY 06/15/2012 PTCA, CARDIAC ANGIOPLASTY, PERCUTANEOUS, 1 ARTERY performed by Dilcia Calderon MD at [facility] CARDIAC CATHETERIZATION REPORT 06/13/2012 prox LAD- 50%; first diagonal-80%;90% next diagonal; right - clear COLONOSCOPY 09/2006 Negative- repeat in 5 years COLONOSCOPY, DIAGNOSTIC (RECTUM) 05/02/2012 COLONOSCOPY FLEXIBLE PROXIMAL DIAGNOSTIC performed by Cameron Mack MD at ENDOSCOPY [facility] COLONOSCOPY, DIAGNOSTIC (RECTUM) 10/07/2020 diverticulosis / COLONOSCOPY FLEXIBLE PROXIMAL DIAGNOSTIC performed by Hector Carlson MD at ENDOSCOPY [facility] COLONOSCOPY, REMOVE LESION 04/2001 Hyperplastic polyp- repeat in 5 years DEXA SCAN/BONE MINERAL AXIAL 09/2006 Repeat in 3 years DEXA SCAN/BONE MINERAL PREIPH 09/2004 Unchanged. No Rx needed. Repeat - 2 years. DUPLEX CAROTID BILAT 07/08/2000 < 15 % occlusion bilaterally EXPLORATION OF ABDOMEN 08/2012 exploratory laparotomy , lysis of adhesions , release of small bowel obstruction, repair of umbilical hernia [facility] Dr. Sukhdev Beltran , accounting assistant Juan vázquez, [place] HEMORRHOIDECTOMY,EXTERNAL, 2 + COLUMNS 02/20/2008 EUA, Hemorrhoidectomy with LigaSure, [facility]. Castillo INFORMATION 08/2003 Back surgery LAPAROSCOPY; CHOLECYSTECTOMY 05/15/2010 Cholecystectomy, Laproscopic , cholangiogram with a Chuck drain 05/15/2010 Dr. Tang at [facility] LAPOROSCOPIC HERNIA REPAIR EDU 1994 LIGATE/CUT [...] symptoms or fever? No Have you had Guillain-Maryneal Syndrome (an illness that causes paralysis) within [...] 12:00 PM EST Office Visit Palliative Medicine [facility] [address] [facility] [address] [place] [address] Frida Leonardo MD [address] [place] [address] [place] [address] 09/25/2024 1:40 PM EDT Office Visit Family Practice [facility] [address] [place] [address] Jennifer Huynh, DO [address] [place] [address] 10/05/2024 2:00 PM EDT Office Visit Neurology [facility] [place] [address] [place] [address] Michelet Shea, DO [address] [place] [address] Scheduled Referrals Name Type Priority Associated Diagnoses [...] D LEVEL ONCE IN A LIFETIME-USE SMARTSET# [id number] Completed 07/22/2010, 10/09/2009 Pneumococcal Vaccine: 65+ Years [...] DO LAB BLOOD ORDERABLES Final Result [facility] [address] [place] [address] * LIPID PANEL WITH DIRECT LDL IF TG IS HIGH (04/02/2024 10:36 AM EST) Triglycerides 111 <=174 mg/dL 04/02/2024 4:46 PM EST [facility] Comment: Triglyceride Reference Ranges (mg/dL): <150 Acceptable 150-174 Borderline high 175-499 High >=500 Very high Cholesterol 134 <200 mg/dL 04/02/2024 4:46 PM EST [facility] Comment: Total Cholesterol Reference Ranges (mg/dL): <200 Desirable 200-239 Borderline high >=240 High HDL Cholesterol 52 >49 mg/dL 4:46 PM EST [facility] Comment: HDL Cholesterol Reference Ranges (mg/dL): >=60 High (Desirable) <50 Low (Undesirable) For Females <40 Low (Undesirable) For Males Non-HDL Cholesterol 82 <=159 mg/dL 04/02/2024 4:46 PM EST [facility] Comment: Non-HDL Cholesterol Reference Range (mg/dL): <100 Target level for high risk ASCVD patient <130 Optimal for general population 130-159 Near optimal for general population 160-189 Borderline High 190-219 High >=220 Very High LDL Cholesterol 60 <=129 mg/dL 04/02/2024 4:46 PM EST [facility] Comment: LDL Cholesterol Reference Ranges (mg/dL): <70 Target level for high risk ASCVD patient <100 Optimal for general population 100-129 Near optimal for general population 130-159 Borderline high 160-189 High >=190 Very high Blood Venous blood specimen / Unknown Venipuncture / Unknown 04/02/2024 10:36 AM EST 04/02/2024 10:36 AM EST Jennifer Huynh DO LAB BLOOD ORDERABLES Final Result [facility] [address] [place] [address] documented in this encounter Visit Diagnoses Diagnosis Dementia of the Alzheimer's type, with late onset, with delirium (HCC)- Primary Alzheimer's disease Ambulatory dysfunction Dyslipidemia, goal LDL below 100 Other and unspecified hyperlipidemia Need for prophylactic vaccination and inoculation against influenza Risk and functional assessment Screening for unspecified condition documented in this encounter Advance Directives Documents on File Type Date Recorded Patient Health Aide Expl anation Power of Acquisition Editor 01/06/2006 * Full Code (Latest Code Status [...] 3:23 PM 10/05/2004 3:23 PM Care Teams Resilient Tile Installer Relationship Specialty Start Date End Date Jennifer Huynh DO [address] [facility] [place] [address] PCP - General Family Medicine 07/14/16 documented as of this encounter"
--- OUTSIDE RECORDS SUMMARY | 2024-09-15 12:10 | External Medical Summary | Summary of Care ---
Author Name Unknown Organization [facility] Address [address] [facility] [place] [address] Phone [phone] Care Team Providers Care Warp Worker Name Role Phone Jennifer Huynh DO Primary Care Provider [phone] Encounter Details Date Type Department Care Team (Late st Contact Info) Description 03/31/2024 Orders Only PATIENT PORTAL DO NOT DELETE THIS DEPT USED BY [place] [id number] Allergies Active Allergy Reactions Criticality Noted Date Comments Penicillins Edema face/lips/tongue,Hives High 1996 documented as of this encounter (statuses as of 03/31/2024) Medications ASPIRIN 81 MG PO CHEWIndications:CA D [...] as of this encounter (statuses as of 03/31/2024) Active Problems Problem Noted Date Diagnosed Date [...] as of this encounter (statuses as of 03/31/2024) Resolved Problems Problem Noted Date Diagnosed Date Resolved Date Prediabetes 06/28/2017 10/24/2018 Overview: Per Prediabetes protocol #1 Paroxysmal SVT (supraventricular tachycardia) 01/02/20 13 11/22/2019 Unstable angina 06/16/2012 06/27/2019 [employer] Other*[id number] 06/15/2012 06/22/2016 Overview (06/15/2012): Study Title: Genomic Markers for Patients with Cardiovascular Disease Project # [id number] Delinquent Notice Machine Operator: Dilcia Calderon MD [phone] Chronic cholecystitis 05/28/20102016 ADVANCE DIRECTIVE INFORMATION 03/25/2010 03/19/2024 Overview (09/15/2006): Pt has a living will on file in this office Dyslipidemia, goal to be determined 04/24/2009 07/02/2009 Overview (04/24/2009): Per Lipid Taxonomy. PURE HYPERCHOLESTEROLEM 09/09/200404/15 Overview (04/24/2009): Per Lipid Taxonomy. 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 [address] [place] [id number] Frida Leonardo MD [address] [place] [address] [place] [address] 04/06/2024 1:00 PM EST Office Visit Neurology [address] [place] [address] Beth Sandhu CRNP [address] [place], [place] [address] 09/25/2024 1:40 PM EDT Office Visit Family Practice [facility] [address] [place] [address] [facility] [address] 10/05/2024 2:00 PM EDT Office Visit Neurology [address] [place] [address] Michelet Shea DO [address] [place] [address] Health Maintenance Due Date Last Done Comments [...] D LEVEL ONCE IN A LIFETIME-USE SMARTSET# [id number] Completed 07/22/2010, 10/09/2009 Pneumococcal Vaccine: 65+ Years [...] Documents on File Type Date Recorded Patient Lawn Mower Mechanic Expl anation Power of Child Care Leader 01/06/2006 * Full Code (Latest Code Status [...] 3:23 PM 10/05/2004 3:23 PM Care Teams Warp Worker Relationship Specialty Start Date End Date Jennifer Huynh DO [address] [place] [address] PCP - General Family Medicine 07/14/16 documented as of this encounter
--- OUTSIDE RECORDS SUMMARY | 2024-09-15 12:10 | External Medical Summary ---
Author Name Unknown Address Unknown Organization [id number]:LABORATORY [facility] - [address] [place] [address] Laboratory Report Ordering Provider Test Date Status ALBERT ROLDAN 04/02/2024 10:36:01 Final Observation Date Value Abnormality Reference (Units ) Status WBC, Total 04/02/2024 10:36:01 5.39 4.00-10.80 (K/uL) Final RBC 04/02/2024 10:36:01 5.24 3.85-5.15 (M/uL) Final Hemoglobin 04/02/2024 10:36:01 15.0 12.0-15.3 (g/dL) Final HCT 04/02/2024 10:36:01 47.8 Above high normal 36.0-45.2 (%) Final MCV 04/02/2024 10:36:01 91.2 81.5-97.5 (fL) Final MCH 04/02/2024 10:36:01 28.6 27.0-34.0 (pg) Final MCHC 04/02/2024 10:36:01 31.4 32.0-36.0 (g/dL) Final RDW 04/02/2024 10:36:01 13.1 11.5-15.5 (%) Final Platelets 04/02/2024 10:36:01 174 140-400 (K/uL) Final MPV 04/02/2024 10:36:01 11.4 6.6-11.1 (fL) Final Nucleated erythrocytes/100 leukocytes [Ratio] in Blood by Automated count 04/02/2024 10:36:01 0 <=0 (/100 WBCs) Final Performing Location LABORATORY [facility] - [address] [place] [address]
--- OUTSIDE RECORDS SUMMARY | 2024-09-15 12:10 | External Medical Summary ---
Author Name Unknown Address Unknown Organization K01:LABORATORY [facility] - [address] [place] [address] Laboratory Report Ordering Provider Test Date Status RAKESH ROSASR 04/02/2024 10:36:01 Final Observation Date Value Abnormality Reference (Units ) Status Triglyceride 04/02/2024 10:36:01 111 <=174 ( mg/dL) Final Triglyceride Reference Range s (mg/dL):
<150 Acceptable
150-174 Borderline high
175-499 High
>=500 Very high Cholesterol 04/02/2024 10:36:01 134 <200 (mg /dL) Final Total Cholesterol Reference Ranges (mg/dL):
<200 Desirable
200-239 Borderline high
>=240 High HDL 04/02/2024 10:36:01 52 >49 (mg/dL ) Final HDL Cholesterol Reference Ra nges (mg/dL):
>=60 High (Desirable)
<50 Low (Undesirable) For Females
<40 Low (Undesirable) For Males NON-HDL CHOLESTEROL 04/02/2024 10:36:01 82 <=159 (mg/dL) Final Non-HDL Cholesterol Referenc e Range (mg/dL):
<100 Target level for high risk ASCVD patient
<130 Optimal for general population
130-159 Near optimal for general population
160-189 Borderline High
190-219 High
>=220 Very High LDL, (calculated) 04/02/2024 10:36:01 60 <= 129 (mg/dL) Final LDL Cholesterol Reference Ra nges (mg/dL):
<70 Target level for high risk ASCVD patient
<100 Optimal for general population
100-129 Near optimal for general population
130-159 Borderline high
160-189 High
>=190 Very high Performing Location LABORATORY [facility] - [address] [facility] [address]
--- OUTSIDE RECORDS SUMMARY | 2024-09-15 12:10 | External Medical Summary ---
Author Name Unknown Address Unknown Organization K01:LABORATORY [facility] - [address] [facility] [place] [address] Laboratory Report Ordering Provider Test Date Status JESSICA ROSAS 04/02/2024 10:36:01 Final Observation Date Value Abnormality Reference (Units ) Status BUN 04/02/2024 10:36:01 13 6-20 (mg/dL) Final Creatinine 04/02/2024 10:36:01 0.7 0.5-1.0 (mg/dL) Final Glomerular filtration rate/1.73 sq M.predicted [Volume Rate/Area] in Serum, Plasma or Blood by Creatinine-based formula (CKD-EPI) 04/02/2024 10:36:01 80 >=60 (mL/min) Final eGFR is calculated based on the CKD-EPI 2020 equation. Sodium 04/02/2024 10:36:01 140 135-146 (m mol/L) Final Potassium 04/02/2024 10:36:01 3.8 3.5-5.1 (m mol/L) Final Cl 04/02/2024 10:36:01 103 98-107 (mm ol/L) Final CO2 04/02/2024 10:36:01 28 22-32 (mmo l/L) Final Anion gap 04/02/2024 10:36:01 9 7-15 (mmol /L) Final Glucose 04/02/2024 10:36:01 98 70-120 (mg /dL) Final Albumin 04/02/2024 10:36:01 4.1 3.8-5.0 (g /dL) Final AST (Aspartate aminotransferase) 04/02/2024 10:36:01 25 10-35 (U/L) Fin al Alk Phos 04/02/2024 10:36:01 142 Above high normal 35 -130 (U/L) Final Bilirubin, Total 04/02/2024 10:36:01 0.4 <=1 .2 (mg/dL) Final Calcium 04/02/2024 10:36:01 9.7 8.4-10.2 ( mg/dL) Final Protein 04/02/2024 10:36:01 6.6 6.0-8.3 (g /dL) Final ALT (Alanine aminotransferase) 04/02/2024 10:36:01 28 10-35 (U/L) Cameron buckner Performing Location LABORATORY [facility] - [facility] [address] [facility] [address]
--- OUTSIDE RECORDS SUMMARY | 2024-09-15 12:10 | External Medical Summary ---
Author Name Unknown Address Unknown Organization K01:LABORATORY [facility] - [address] [facility] [place] [address] Laboratory Report Ordering Provider Test Date Status ALBERT ROLDAN 04/02/2024 10:36:01 Final Observation Date Value Abnormality Reference (Units ) Status SYNC LEUKOCYTES IN BLOOD BY AUTOMATED COUNT 04/02/2024 10:36:01 5.39 4.00-10.80 (K/uL) Final Segs 04/02/2024 10:36:01 62.4 40.0-75.0 (%) Final Lymphs % 04/02/2024 10:36:01 28.0 18.0-42.0 (%) Final Monos 04/02/2024 10:36:01 6.7 1.0-11.0 (%) Final Eosinophils 04/02/2024 10:36:01 2.0 0.0-6.0 (%) Final Basos 04/02/2024 10:36:01 0.7 0.0-2.0 (%) Final Immature Granulocyte, Percent 04/02/2024 10:36:01 0.2 0.0-2.0 (%) Final Absolute Segs 04/02/2024 10:36:01 3.36 1.80-7.70 (K/uL) Final Lymphs, absolute 04/02/2024 10:36:01 1.51 1.00-4.80 (K/ul) Final Monos, Abs 04/02/2024 10:36:01 0.36 0.00-1.10 (K/uL) Final Eos, Abs 04/02/2024 10:36:01 0.11 0.00-0.70 (K/uL) Final Basos, Abs 04/02/2024 10:36:01 0.04 0.00-0.20 (K/uL) Final Immature Granulocytes, Number 04/02/2024 10:36:01 0.01 0.00-0.20 (K/uL) Final Performing Location LABORATORY [facility] - [address] [facility] [address]
--- OUTSIDE RECORDS SUMMARY | 2024-09-15 12:10 | External Medical Summary | Summary of Care ---
Author Name Unknown Organization [facility] Address [address] [facility] [place] [address] Phone [phone] Care Team Providers Care Embossing Calender Operator Name Role Phone Alison Lopez DO Primary Care Provider [phone] Reason for Visit * Reason Onset Date Comments Medication Refill 03/29/2024 Encounter Details Date Type Department Care Team (Late st Contact Info) Description 03/29/2024 Refill Family Practice [facility] [address] [place] [address] Alison Lopez DO [address] [place] [address] Encounter for long-term (current) use of medications* Allergies Active Allergy Reactions Criticality Noted Date Comments Penicillins Edema face/lips/tongue,Hives High 1996 documented as of this encounter (statuses as of 03/29/2024) Medications ASPIRIN 81 MG PO CHEWIndications:CA D [...] as of this encounter (statuses as of 03/29/2024) Active Problems Problem Noted Date Diagnosed Date [...] as of this encounter (statuses as of 03/29/2024) Resolved Problems Problem Noted Date Diagnosed Date Resolved Date Prediabetes 06/28/2017 10/24/2018 Overview: Per Prediabetes protocol #1 Paroxysmal SVT (supraventricular tachycardia) 01/02/20 13 11/22/2019 Unstable angina 06/16/2012 06/27/2019 [employer] Other*[id number] 06/15/2012 06/22/2016 Overview (06/15/2012): Study Title: Genomic Markers for Patients with Cardiovascular Disease Project # [id number] Ground Layer: Dilcia Calderon MD [phone] Chronic cholecystitis 05/28/20102016 ADVANCE DIRECTIVE INFORMATION 03/25/2010 03/19/2024 Overview (09/15/2006): Pt has a living will on file in this office Dyslipidemia, goal to be determined 04/24/2009 07/02/2009 Overview (04/24/2009): Per Lipid Taxonomy. PURE HYPERCHOLESTEROLEM 09/09/200404/15 Overview (04/24/2009): Per Lipid Taxonomy. 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 Thank You, Yuli Ansari [facility] Clinical Pharmacist [facility] ([facility]) 03/29/2024, 11:52 AM * Telephone Encounter - Yuli Lee [facility] - 03/29/2024 11:51 AM EST Pending [...] the medication was ordered: 03/31/23 Pharmacy: [id number] Is this request for a controlled [...] 10:30 AM EST Office Visit Palliative Medicine [facility] [address] [place] [id number] Frida Leonardo MD [address] [place] [address] 04/06/2024 1:00 PM EST Office Visit Neurology [facility] [address] [facility] [place] [address] Beth Sandhu CRNP [address] [place] [address] 09/25/2024 1:40 PM EDT Office Visit Family Practice [facility] [address] [place] [address] Alison Lopez DO [address] [place] [address] 10/05/2024 2:00 PM EDT Office Visit Neurology [facility] [address] [facility] [place] [address] Michelet Shea DO [address] [place] [address] Scheduled Orders Name Type Priority Associated Diagnoses [...] D LEVEL ONCE IN A LIFETIME-USE SMARTSET# [id number] Completed 07/22/2010, 10/09/2009 Pneumococcal Vaccine: 65+ Years [...] Documents on File Type Date Recorded Patient Member Services Coordinator Expl anation Power of Manager Specialty 01/06/2006 * Full Code (Latest Code Status [...] 3:23 PM 10/05/2004 3:23 PM Care Teams Embossing Calender Operator Relationship Specialty Start Date End Date Alison Lopez DO [address] [place] [address] PCP - General Family Medicine 07/14/16 documented as of this encounter
[2024-09-15 12:40] LABS: Hematocrit (blood only) 44.2 % (37.0-47.0); Hemoglobin 14.9 g/dl (12.0-16.0); Mean Corpuscular Hemoglobin 28.7 pg (25.0-34.0); Mean Corpuscular Hgb Conc 33.7 g/dL (32.0-36.0); Mean Corpuscular Volume 85.2 fL (80.0-100.0); Mean Platelet Volume 10.5 fL (9.4-12.4); Platelet Count 169 K/uL (130-400); RDW Coefficient of Variation 13.1 % (11.5-14.5); RDW Standard Deviation 40.7 fL (36.4-46.3); Red Blood Count 5.19 M/uL (4.20-5.40); White Blood Count 10.99 K/ul (4.8-10.8)
[2024-09-15 12:58] LABS: BUN Creatinine Ratio 22.4 (10-20); Bilirubin Direct 0.1 mg/dl (0-0.2); Bilirubin,Total 0.9 mg/dl (0.2-1.0); Calcium 9.4 mg/dl (8.6-10.3); Creatinine Clr Calc Pharmacy 49.4 ml/min; Potassium 3.6 mmol/L (3.5-5.1)
[2024-09-15 12:59] LABS: Albumin Globulin Ratio 1.4 (0.9-2); Albumin Level 4.1 gm/dl (3.4-5.0); Globulin 2.9 gm/dl (2.5-4.0)
[2024-09-15 13:08] LABS: Basophils # (auto) 0.01 K/uL (0.00-0.20); Basophils % (auto) 0.1 %; Immature Granulocytes # (auto) 0.03 K/uL (0.01-0.20); Immature Granulocytes % (auto) 0.3 %; Lymphocytes # (auto) 0.45 K/uL (1.20-3.40); Lymphocytes % (auto) 4.1 %; Monocytes # (auto) 0.42 K/uL (0.11-0.59); Monocytes % (auto) 3.8 %; Neutrophils # (auto) 10.08 K/uL (1.40-6.50); Neutrophils % (auto) 91.7 %
[2024-09-15 13:11] LABS: INR 1.1 (0.9-1.1); Prothrombin Time 11.4 Seconds (9.0-12.0)
--- NOTE | 2024-09-15 13:27 | XRay Report ---
Technique: A frontal view of the chest was obtained Comparison is made to the prior examination dated 12/10/2020 Findings: There are no definite pulmonary infiltrates. The heart size is within normal limits. No pleural effusion or pneumothorax is seen. There is no definite pulmonary nodule. No fracture is noted. No foreign body is seen Impression: No active disease Electronically signed by Dc Valderrama 09-15-2024 13:21 PM
--- NOTE | 2024-09-15 13:36 | XRay Report ---
3 views of the pelvis and right hip are submitted for review. Findings: There is a mildly displaced subcapital fracture of the right femoral neck. No subluxation or dislocation is seen. There is lumbar scoliosis and degenerative disc disease. No other osseous abnormality is identified. There are no radiopaque foreign bodies. Impression: Right femoral neck fracture ACT 112: Positive. There are findings on this exam that require communication between the performing entity and the patient following Patient Test Result Information Act ([place] ACT 112) guidelines. Electronically signed by Dc Valderrama 09-15-2024 13:36 PM
--- NOTE | 2024-09-15 14:12 | History & Physical Report ---
Date of Service September 15, 2024 Assessment & Plan (1) Fracture of femoral neck, right: (2) Fall: (3) Vascular dementia: (4) CAD (coronary artery disease): (5) HLD (hyperlipidemia): Plan Right displaced subcapital neck fracture Mechanical fall - Admit to [facility]. no tele for now (no findings in ER on tele or EKG, no chest complaints, wires likely to further confuse the patient with severe dementia) - EKG reviewed, CXR is negative - Imaging reviewed showing a right mildly displaced subcapital femoral neck fracture - Analgesia and bowel regimen ordered - PT/OT after surgery, patient will need evaluated for possible rehab therapy - discussed with Dr. Shetty, no OR today, plan for tomorrow will make n.p.o. after midnight - have relayed this information to the pts over the phone CAD HLD - Pt is on plavix and aspirin, beta capo, Continue for now. Will need to discuss if ortho ok to continue or hold plavix tonight for anticipating OR tomorrow. Severe vascular dementia without behavioral disturbance - Does not appear she is on any dementia medications - Likely requires frequent reorientation, avoid sedative materials such as Ativan - Patient may require feeding assistance, allow diet this evening, n.p.o. after midnight DVT ppx: teds, scds on nonaffected leg Lines: PIV x 2 FEN/GI: cardiac, easy to chew CODE: Full code -discussed with via phone Dispo: From home, likely to remain in the hospital x 1-2 days I spent a total of 75 minutes with greater than 50% of that time face to face with the patient, personally reviewing all current laboratories, imaging studies , past medication reconciliation, outpatient chart review, and discussion with specialists to collaborate care for the patient excluding time spent in the performance of separately billed services or time spent by another provider/QHP. Please see attending documentation for corrections and/or additions. History of Present Illness Chief Complaint: Mechanical Fall, R femoral neck fracture Primary Care Provider: Jennfier Huynh, This is an 83-year-old female with PMHx of CAD, HLD, osteoporosis, severe vascular dementia without disturbance cognitive impairment, history of basal cell carcinoma, tinnitus who lives at home with her who presents after a fall she sustained at some point overnight. is present at bedside and supports the history. He states that he heard her get up to use the bathroom in the middle of the night for which she is typically ambulatory without assistive devices, fell and he was able to help her get back to bed. This morning when she attempted to stand and ambulate she was unable to do so and slumped down to the floor. He could not get the patient back up and therefore called EMS where they brought her here to the hospital for evaluation. On imaging she is found to have right displaced subcapital femoral neck fracture.The patient herself is unable to provide any history due to severe dementia. Her was called over the phone. He would like her to be a full code. States that she is able to feed herself home up until the last few bites and then he helps feed her the rest of meals. She did not get any of her morning medications today. Allergies Allergy/AdvReac Type Severity Reaction Status Date / Time Penicillins Allergy Unknown SWELLING Verified 09/15/24 14:00 Home Medications Medication Instructions Recorded Confirmed Type atorvastatin 40 mg tablet 40 mg PO HS 12/09/20 09/15/24 History clopidogrel 75 mg tablet 75 mg PO DAILY 12/09/20 09/15/24 History metoprolol tartrate 50 mg tablet 50 mg PO BID 12/09/20 09/15/24 History aspirin 81 mg tablet,delayed 81 mg PO DAILY 09/15/24 09/15/24 History release calcium carbonate 1,000 mg PO DAILY 09/15/24 09/15/24 History cholecalciferol (vitamin D3) 25 25 mcg PO DAILY 09/15/24 09/15/24 History mcg (1,000 unit) tablet (Vitamin D3) Past Med/Surg History Problem List HLD (hyperlipidemia) CAD (coronary artery disease) Vascular dementia Fracture of femoral neck, right Medical History Small bowel obstruction Syncope and collapse Fall Dementia Dizziness of unknown cause Surgical History Status post nasal surgery Nose reconstruction History of repair of inguinal hernia Hx of appendectomy Tubal ligation status Hx of hernia repair History of back surgery Hx laparoscopic cholecystectomy S/P hemorrhoidectomy H/O umbilical hernia repair H/O lysis of adhesions Hx of colonoscopy S/P cardiac cath Family History Father Pituitary tumor Mother Osteoporosis Social History Smoking Status: Former smoker Second Hand Exposure: No; Do You Dip or Chew Tobacco: No; Hx Alcohol Use: No Hx Substance Use: No Preferred Language: Portuguese Communication Ability: Impaired Wheel Presser Required: No Beliefs That Will Affect Care: None marital status: Current Living Situation: Spouse Current Living Situation Comment: live with How many Children do You have: 0 Feels Safe at Home: Yes Assistive Devices: Hearing Aid - Bilateral Review of Systems Review of Systems: Unobtainable due to cognitive status Physical Exam Physical Exam: General: awake, alert, does not participate in conversation due to dementia, can say one word answer occasionally, does not follow commands. no apparent distress Head: Normocephalic, atraumatic ENT: PERRL, EOMI, no pharyngeal exudate, mucous membranes moist Chest: Clear to auscultation, on room air, no adventitious breath sounds Cardiac: Regular rate and rhythm, no murmur, no JVD, normal peripheral pulses, good capillary refill Abdominal: NABS x 4 quadrants, soft, nondistended, nontender to palpation, no rebound or guarding Extremities: Few small areas of ecchymosis resolving on R lara, no other visible area of bruising or abraision, generally normal inspection, no peripheral edema or erythema, calfs nontender to palpation Psych: Normal mood and affect Neuro: awakens to verbal stimuli, not oriented, speech is clear, no peripheral sensory deficits Results & Data Results & Data Vital Signs (Past 12 Hours) Vital Signs Temp Pulse Pulse Resp BP BP Pulse Ox 09/15/24 13:34 87 09/15/24 13:00 73 18 133/85 94 09/15/24 12:37 96 09/15/24 12:31 36.3 C L 92 H 16 168/80 H 86 L 09/15/24 12:25 36.3 C L 92 H 18 168/80 H 86 L O2 Del Method O2 Flow Rate 09/15/24 13:34 09/15/24 13:00 Nasal Cannula 2 09/15/24 12:37 Nasal Cannula 2 09/15/24 12:31 Room Air 09/15/24 12:25 Room Air Laboratory Results 09/15/24 12:20 WBC 10.99 H RBC 5.19 Hgb 14.9 Hct 44.2 MCV 85.2 MCH 28.7 MCHC 33.7 RDW Std Deviation 40.7 RDW Coeff of Miller 13.1 Plt Count 169 MPV 10.5 Immature Gran % (Auto) 0.3 Neut % (Auto) 91.7 Lymph % (Auto) 4.1 [place] % (Auto) 3.8 Eos % (Auto) 0.0 Baso % (Auto) 0.1 Neut # (Auto) 10.08 H Lymph # (Auto) 0.45 L [place] # (Auto) 0.42 Eos # (Auto) 0.00 Baso # (Auto) 0.01 Immature Gran # (Auto) 0.03 PT 11.4 INR 1.1 Sodium 138 Potassium 3.6 Chloride 103 Carbon Dioxide 26 Anion Gap 9 BUN 15 Creatinine 0.67 Est Cr Clr Drug Dosing 49.4 eGFR 86.13 BUN/Creatinine Ratio 22.4 H Glucose 157 H Calcium 9.4 Total Bilirubin 0.9 Direct Bilirubin 0.1 AST 30 ALT 30 Alkaline Phosphatase 97 Total Protein 7.0 Albumin 4.1 Globulin 2.9 Albumin/Globulin Ratio 1.4 Diagnostic Findings Chest X-Ray 09/15/24 12:14 Technique: A frontal view of the chest was obtained Comparison is made to the prior examination dated 12/10/2020 Findings: There are no definite pulmonary infiltrates. The heart size is within normal limits. No pleural effusion or pneumothorax is seen. There is no definite pulmonary nodule. No fracture is noted. No foreign body is seen Impression: No active disease Electronically signed by Dc Valderrama 09-15-2024 13:21 PM Hip/Pelvis X-Ray 09/15/24 12:14 3 views of the pelvis and right hip are submitted for review. Findings: There is a mildly displaced subcapital fracture of the right femoral neck. No subluxation or dislocation is seen. There is lumbar scoliosis and degenerative disc disease. No other osseous abnormality is identified. There are no radiopaque foreign bodies. Impression: Right femoral neck fracture ACT 112: Positive. There are findings on this exam that require communication between the performing entity and the patient following Patient Test Result Information Act ([place] ACT 112) guidelines. Electronically signed by Dc Valderrama 09-15-2024 13:36 PM Supervising Physician Co-Signing Physician Notes Patient is an 83-year-old female with history of coronary artery disease, hyperlipidemia, vascular dementia and other medical problems presents for evaluation after a fall. Patient is mostly nonverbal and unable to provide any history. Most of the history is obtained from ED physician, old records and patient's family over the phone. Patient apparently attempted to stand and ambulate and fell on the floor. Please review HPI for complete details of prese ntation. Patient was noted to have right femoral neck fracture. I personally reviewed blood work and imaging studies. Blood work showed leukocytosis 10.9, glucose 157 but otherwise blood work within normal limits. UA suggestive of possible UTI. Hip x-ray showed right femoral neck fracture. Physical Exam: Vitals signs as noted above General Appearance:Moderately built and nourished, no apparent distress Head: normocephalic, Atraumatic Eyes: normal inspection, EOMI Neck: supple, Trachea midline Respiratory/Chest: Normal breath sounds, CTA, No accessory muscle use Cardiovascular: S1, S2, No murmur Abdomen/GI:Soft, Non tender, Bowel sounds present Extremities/Musculoskeletal:normal inspection, no edema , left hip tender, decreased ROM Neurologic/Psych: Alert, awake, tries to follow simple commands, unable to perform complete neurological exam. Skin: normal color, warm Right femoral neck fracture Secondary to mechanical fall Suspected UTI Hold Plavix for now PT OT, fall precautions Pain control as needed Bowel regimen to prevent constipation Reorient frequently to minimize delirium Empirically started on IV Rocephin Follow-up urine culture Appreciate orthopedics input I personally interviewed and examined the patient at bedside. I have reviewed the advanced practitioner's documentation on the date of service referred in note and agree with plan. Patient's care is coordinated with Gabby Lindquist PA-C. Please refer to the documentation above for details of patient's presentation and for discussion of other issues. I spent a total of 35minutes coordinating, documenting, and providing care for this patient excluding time spent in the performance of separately billed services or time spent by another provider/QHP.
--- NOTE | 2024-09-15 14:26 | Emergency Department Note ---
ED Visit Note I was consulted by Emiliano Kumar PA-C. I personally made/approved the management plan and take responsibility for the patient management. I performed a substantive portion of the visit. This includes the aspects of imaging review and medical decision making. Patient will be evaluated by the hospitalist service and orthopedics was consulted. Please refer to Emiliano Kumar PA-C's notes for further details of the history, physical and visit. .
--- NOTE | 2024-09-15 14:42 | Orthopedic Consultation ---
Date of Service September 15, 2024 Assessment & Plan (1) Fracture of femoral neck, right: Admitted to the hospitalist service. Will plan on surgery tomorrow: cemented bipolar hemiarthroplasty. Will call to try to inform him of the timing/plan. NPO after midnight. Bedrest. History of Present Illness Reason for Consultation: . Requesting Physician: . . 83 year old patient with h/o severe dementia, admitted with right femoral neck fracture. History obtained from the chart, as is not present at this time. Patient sleeping. She apparently got up during the night and fell. Her was able to help her back into bed but this morning she sort of slid out of bed, not able to walk. Xrays revealed a femoral neck fracture. Allergies Allergy/AdvReac Type Severity Reaction Status Date / Time Penicillins Allergy Unknown SWELLING Verified 09/15/24 14:00 Home Medications Medication Instructions Recorded Confirmed Type atorvastatin 40 mg tablet 40 mg PO HS 12/09/20 09/15/24 History clopidogrel 75 mg tablet 75 mg PO DAILY 12/09/20 09/15/24 History metoprolol tartrate 50 mg tablet 50 mg PO BID 12/09/20 09/15/24 History aspirin 81 mg tablet,delayed 81 mg PO DAILY 09/15/24 09/15/24 History release calcium carbonate 1,000 mg PO DAILY 09/15/24 09/15/24 History cholecalciferol (vitamin D3) 25 25 mcg PO DAILY 09/15/24 09/15/24 History mcg (1,000 unit) tablet (Vitamin D3) Past Med/Surg History Problem List (Updated 09/15/24 @ 14:18 by Gabby Lindquist PA-C) HLD (hyperlipidemia) CAD (coronary artery disease) Vascular dementia Fracture of femoral neck, right Medical History (Updated 09/15/24 @ 14:18 by Gabby Lindquist PA-C) Small bowel obstruction Syncope and collapse Fall Dementia Dizziness of unknown cause Surgical History (Updated 09/15/24 @ 14:16 by Gabby Lindquist PA-C) Status post nasal surgery Nose reconstruction History of repair of inguinal hernia Hx of appendectomy Tubal ligation status Hx of hernia repair History of back surgery Hx laparoscopic cholecystectomy S/P hemorrhoidectomy H/O umbilical hernia repair H/O lysis of adhesions Hx of colonoscopy S/P cardiac cath Family History (Updated 09/15/24 @ 14:17 by Gabby Lindquist PA-C) Father Pituitary tumor Mother Osteoporosis Social History Smoking Status: Unknown if ever smoked Hx Alcohol Use: No Hx Substance Use: No Preferred Language: Hungarian Communication Ability: Effective Peel Oven Tender Required: Voice Beliefs That Will Affect Care: None marital status: Current Living Situation: Spouse Current Living Situation Comment: live with How many Children do You have: 0 Feels Safe at Home: Yes Assistive Devices: None Review of Systems All systems reviewed & are unremarkable except as noted in HPI & below. Physical Exam .Patient resting/sleeping at this time. I did not wake her. Right leg: shortened and externally rotated. Results & Data Results & Data Laboratory Results . Diagnostic Findings . xrays of the hip shows a displaced right femoral neck fracture PG Care Time/CCT Total # of Minutes Spent Total Time Spent with Patient: Total time spent is greater than 50% in coordination of care (as documented) at patient's floor/unit and/or counseling patient: Coding Level of Care Code 02498 IN/OBS CONSULT LVL 5,80M Diagnoses Fracture of femoral neck, right S72.001A
[2024-09-15] MEDS ORDERED: bisacodyL 10 MG SUPP PR PRN (15:47)
[2024-09-15] MEDS ORDERED: NALOXONE HCL 0.4 MG/1 ML VIAL/CARP IV PRN (15:47)
[2024-09-15] MEDS ORDERED: MAGNESIUM HYDROXIDE SUSP 30 ML UDC PO PRN (15:47)
[2024-09-15] MEDS ORDERED: ONDANSETRON INJ 2 MG/ML 2 ML VIAL IV PRN (15:47)
[2024-09-15 17:25] LABS: Appearance Urine Cloudy (Clear); Bacteria Urine Automated 4+ (None Seen); Bilirubin Urine Negative (Negative); Blood Urine 1+ (Negative); Color Urine Yellow; Epithelial Cell Urine Auto >20 /hpf (0-2); Glucose Urine UA Negative (Negative); Ketones Urine 1+ (Negative); Leukocyte Esterase Urine 1+ (Negative); Nitrite Urine Negative (Negative); Protein Urine 1+ (Negative); RBC Urine Automated >20 /hpf (0-2); Specific Gravity Urine 1.022 (1.000-1.030); Urobilinogen Urine Negative (Negative)
[2024-09-15] MEDS: ACETAMINOPHEN 500 MG TAB PO SCH (17:29)
[2024-09-15] MEDS: cefTRIAXone SODIUM 1,000 MG/50 ML BAG IV SCH (18:28)
[2024-09-15] MEDS: ATORVASTATIN 40 MG TAB PO SCH (19:46)
[2024-09-15] MEDS: METOPROLOL TARTRATE 50 MG TAB PO SCH (19:46)
[2024-09-15] MEDS: SODIUM CHLORIDE 0.9% 1,000 ML IV SCH (23:37)
[2024-09-16 06:53] LABS: Hematocrit (blood only) 40.3 % (37.0-47.0); Hemoglobin 13.4 g/dl (12.0-16.0); Mean Corpuscular Hemoglobin 28.5 pg (25.0-34.0); Mean Corpuscular Hgb Conc 33.3 g/dL (32.0-36.0); Mean Corpuscular Volume 85.6 fL (80.0-100.0); Mean Platelet Volume 10.3 fL (9.4-12.4); Platelet Count 133 K/uL (130-400); RDW Coefficient of Variation 13.4 % (11.5-14.5); Red Blood Count 4.71 M/uL (4.20-5.40); White Blood Count 8.26 K/ul (4.8-10.8)
[2024-09-16] MEDS ORDERED: NEOSTIGMINE METHYLSULFATE 1 MG/ML 10ML VIAL ONE (07:07)
[2024-09-16] MEDS ORDERED: ROCURONIUM BROMIDE 10 MG/ML 5 ML VIAL IV ONE (07:07)
[2024-09-16] MEDS ORDERED: ONDANSETRON INJ 2 MG/ML 2 ML VIAL ONE (07:07)
[2024-09-16] MEDS ORDERED: LIDOCAINE 2% 2 ML VIAL/AMP(20MG/ML) INFIL ONE (07:07)
[2024-09-16] MEDS ORDERED: DEXAMETHASONE SOD INJ 4 MG/ML VIAL ONE (07:07)
[2024-09-16] MEDS ORDERED: GLYCOPYRROLATE 0.2 MG/ML VIAL ONE (07:07)
[2024-09-16] MEDS ORDERED: PROPOFOL IV EMULSION 10 MG/ML 20 ML VIAL IV ONE (07:07)
[2024-09-16] MEDS ORDERED: fentaNYL citrate PF 100 MCG/2 ML VIAL ONE ×2 (07:09→08:38)
[2024-09-16] MEDS ORDERED: MIDAZOLAM HCL 1 MG/ML 2ML VIAL ONE (07:09)
--- NOTE | 2024-09-16 07:13 | History & Physical Bridge Note ---
Date of Service September 16, 2024 History & Physical Bridge Note I have examined the patient, reviewed the History & Physical and in the interval since the performance of the History & Physical I have noted the following changes of clinical significance: no changes noted
[2024-09-16 07:14] LABS: BUN Creatinine Ratio 26.9 (10-20); Calcium 8.9 mg/dl (8.6-10.3); Creatinine Clr Calc Pharmacy 54.3 ml/min; Potassium 3.7 mmol/L (3.5-5.1)
[2024-09-16] MEDS: ceFAZolin 2000MG 2,000 MG/15 ML SYR IV SCH (07:15)
--- NOTE | 2024-09-16 07:32 | Anesthesiology Consultation ---
Date of Service September 16, 2024 Assessment & Plan Chart Review Chart Review: Acceptable Risk for Surgery Consults Requested none History Surgery Operation Date: 09/16/24 07:30 Proposed Procedures p Right Cemented Bipolar Hip Prosthesis - Remi Shetty MD Height/Weight Height: 5 ft 2 in Weight: 62.4 kg Allergies Allergy/AdvReac Type Severity Reaction Status Date / Time Penicillins Allergy Unknown SWELLING Verified 09/15/24 14:00 Medications Home Medications Medication Instructions Recorded Confirmed Last Taken atorvastatin 40 mg tablet 40 mg PO HS 12/09/20 09/15/24 09/14/24 clopidogrel 75 mg tablet 75 mg PO DAILY 12/09/20 09/15/24 09/14/24 metoprolol tartrate 50 mg tablet 50 mg PO BID 12/09/20 09/15/24 09/14/24 aspirin 81 mg tablet,delayed 81 mg PO DAILY 09/15/24 09/15/24 09/14/24 release calcium carbonate 1,000 mg PO DAILY 09/15/24 09/15/24 09/14/24 cholecalciferol (vitamin D3) 25 25 mcg PO DAILY 09/15/24 09/15/24 09/14/24 mcg (1,000 unit) tablet (Vitamin D3) Active Medications Generic Name Dose Route Start Last Admin Trade Name Freq PRN Reason Stop Dose Admin Acetaminophen 1,000 mg 09/15/24 16:00 09/15/24 23:37 Acetaminophen 500 Mg Tab PO 10/15/24 15:59 Not Given Q8H SANJUANA Atorvastatin Calcium 40 mg 09/15/24 21:00 09/15/24 19:46 Atorvastatin 40 Mg Tab PO 10/15/24 20:59 40 mg HS SANJUANA Administration Sodium Chloride 1,000 mls @ 80 mls/hr 09/16/24 00:01 09/15/24 23:37 Nss IV 09/16/24 12:30 80 mls/hr .[id number] SANJUANA Administration Ceftriaxone Sodium 1,000 mg in 50 mls @ 100 mls/hr 09/15/24 18:00 09/15/24 19:06 Rocephin IV 09/20/24 17:59 Infused Q24H SANJUANA Infusion Metoprolol Tartrate 50 mg 09/15/24 21:00 09/15/24 19:46 Metoprolol Tartrate 50 Mg Tab PO 10/15/24 20:59 50 mg BID SANJUANA Administration NPO Date Last Intake of Fluids: 09/15/24 Date Last Intake of Solids: 09/15/24 Past Medical History Medical History Small bowel obstruction Syncope and collapse Fall Dementia Dizziness of unknown cause Past Family History Family History Father Pituitary tumor Mother Osteoporosis Past Surgical History Surgical History Status post nasal surgery Nose reconstruction History of repair of inguinal hernia Hx of appendectomy Tubal ligation status Hx of hernia repair History of back surgery Hx laparoscopic cholecystectomy S/P hemorrhoidectomy H/O umbilical hernia repair H/O lysis of adhesions Hx of colonoscopy S/P cardiac cath Social History Smoking Status: Former smoker Do You Dip or Chew Tobacco: No Hx Alcohol Use: No Hx Substance Use: No Physical Exam Vital Signs Last Vital Signs Temp 37.0 C 09/15/24 19:51 Pulse 96 H 09/15/24 19:51 Resp 14 09/15/24 19:51 BP 142/86 H 09/15/24 19:51 Pulse Ox 96 09/15/24 19:51 O2 Del Method Nasal Cannula 09/15/24 20:50 O2 Flow Rate 2 09/15/24 20:50 Testing Laboratory Results 09/16/24 06:28 09/16/24 06:28 PT 11.4 Seconds (9.0-12.0) 09/15/24 12:20 INR 1.1 (0.9-1.1) 09/15/24 12:20 Urine Color Yellow 09/15/24 16:34 Urine Appearance Cloudy (Clear) A 09/15/24 16:34 Urine pH 5.0 (4.5-7.5) 09/15/24 16:34 Ur Specific [place]ison 1.022 (1.000-1.030) 09/15/24 16:34 Urine Protein 1+ (Negative) H 09/15/24 16:34 Urine Glucose (UA) Negative (Negative) 09/15/24 16:34 Urine Ketones 1+ (Negative) H 09/15/24 16:34 Urine Nitrite Negative (Negative) 09/15/24 16:34 Ur Leukocyte Esterase 1+ (Negative) H 09/15/24 16:34 Urine WBC (Auto) 11-20 /hpf (0-5) H 09/15/24 16:34 Urine RBC (Auto) >20 /hpf (0-2) H 09/15/24 16:34 U Hyaline Cast (Auto) 6-10 /lpf (0-2) H 09/15/24 16:34 U Epithel Cells (Auto) >20 /hpf (0-2) H 09/15/24 16:34 Urine Bacteria (Auto) 4+ (None Seen) H 09/15/24 16:34
[2024-09-16] MEDS ORDERED: ONDANSETRON INJ 2 MG/ML 2 ML VIAL IV PRN (07:34)
[2024-09-16] MEDS ORDERED: ATROPINE SULFATE 0.1 MG/ML 10ML SYR IV PRN (07:34)
[2024-09-16] MEDS ORDERED: ePHEDrine sulfate 50 MG/ML AMP IV PRN (07:34)
[2024-09-16] MEDS ORDERED: PROMETHAZINE HCL 6.25 MG in SODIUM CHLORIDE 0.9% 50 ML IV PRN (07:34)
[2024-09-16] MEDS ORDERED: HYDROmorphone INJ 1 MG/ML SYRINGE IV PRN (07:34)
[2024-09-16] MEDS: ceFAZolin 330 MG/ML 1 GM VIAL ONE (07:51)
[2024-09-16] MEDS: BUPIVACAINE/EPINEPHRINE 0.5% MPF 1:200,000 30 ML VIAL ONE (08:02)
[2024-09-16] MEDS: ASPIRIN 81 MG ECTAB PO SCH (08:25)
[2024-09-16] MEDS ORDERED: SUGAMMADEX SODIUM 200 MG/2 ML VIAL IV ONE (08:31)
--- NOTE | 2024-09-16 08:54 | Operative Report ---
PG Post Operative Report Pre & Post Diagnosis Operation Date: 09/16/24 07:30 Pre-Op Diagnosis: Displaced fracture of femoral neck, right Post-Op Diagnosis: Displaced fracture of femoral neck, right I identified the patient and participated in the time-out.: Yes Procedure Operation Date: 09/16/24 07:30 Actual Procedures p Right Hip Hemiarthroplasty(Right) - Remi Shetty MD Surgeon Remi Shetty MD Bowling Ball Molder Wojciech Gilliland PA-C Estimated Blood Loss 100 Findings Consistent with Post-Op Diagnosis Specimens Right femoral head sent for pathology. Anesthesia Type General Complications none Disposition Accompanied Patient To Recovery: No Indications Patient is an 83-year-old female with pretty advanced severe dementia who sustained a mechanical fall. She was brought to emergency room x-rays revealed a displaced femoral neck fracture. She was admitted by the medicine service and medically optimized. Her and her have elected to proceed with hemiarthroplasty. Description of Procedure Operative implants consist of: 1. Jessica size 9 High offset echo cemented fracture stem with a 9 mm centralizer. 2. +0/28 mm metal articular ball. 3. 47 mm bipolar shell and liner. 4. Small cement restrictor. The patient was taken to the op room, identified, placed on the operating table in the supine position. All contact areas were appropriately padded. IV antibiotics were by the anesthesia team. A dose of TXA was also given. A general anesthetic was implemented as this patient is on Plavix. The patient was then placed in the left lateral decubitus position. An axillary roll was placed. A stool Birkett position was used for positioning. The right hip and leg were then scrubbed with Hibiclens, prepped with ChloraPrep and draped in the usual sterile fashion. A posterolateral approach to the right hip was then performed to a curvilinear incision centered over the greater trochanter. Sharp dissection scalp through subcutaneous tissue down to level the IT band gluteal fascia. The IT band gluteal fascia incised longitudinally in line with skin incision. The underlying greater bursa was excised. The piriformis and external rotators were then released from the posterior aspect of the hip joint and the hip joint capsule also released from the posterior aspect of the hip. Great care was taken throughout the procedure protect the sciatic nerve at all times. The hip was then internally rotated. A femoral neck osteotomy cut was made just at the base of the fracture site which was about a centimeter above the lesser trochanter. Femoral neck and the remaining femoral head was removed. The acetabulum sized to a size 47. Attention drawn the femur. The proximal femur was entered with a cookie cutter followed by canal finder lateralizing reamer. Then broached beginning the size 1 progressing to a 3. We got pretty good fit with this 3. We trialed the hip and the 0 articular ball provided appropriate stability. We did use a high offset stem to maximize her stability. We elected place these implants. All trial implants were removed. A small cement restrictor was placed. Double batch [place] G cement was mixed in the canal was then injected with the cement. A size 3 high offset echo femoral stem was placed. Once the cement hardened a +0/28 mm articular ball with 47 bipolar shell and liner was placed. Hip was located and once again found to be stable. Attention drawn toward closing. The wound was irrigated coconuts of well pulsatile lavage solution. I did inject locally with 60 cc of half percent Marcaine with epinephrine. The posterior capsule was then repaired with #2 Tycron suture. The IT band gluteal fascia was then closed in 1 PDS suture in a running fashion the subcutaneous tissues then closed with 2 layers of the deep layer #1 Vicryl suture and subcutaneous tissues with 2-0 Dexon suture in a buried interrupted fashion. The skin was then closed with skin krissy. Leg was then cleaned and dried and a sterile dressing with Xeroform, 4 x 4's, ABD pad and foam tape was applied. The patient was then brought out of general esthesia and transferred to the recovery room in stable condition. The patient tolerated the procedure well and there were no complications. Wojciech Gilliland, my physician nutrition services assistant, was present for the entire procedure. His assistance was essential and required for appropriate patient positioning, prepping and draping, surgical exposure, performing the technical details of the operation, placement the implants, closure of the wound, and placement of the sterile bandage. I attest to the content of the Intraoperative Record and any orders documented therein. Any exceptions are noted below.
[2024-09-16] MEDS: fentaNYL citrate PF 100 MCG/2 ML VIAL IV PRN (09:20)
[2024-09-16] MEDS: CALCIUM CARBONATE 1250MG TAB PO SCH (10:18)
[2024-09-16] MEDS: CHOLECALCIFEROL 25 MCG (1000 UNITS) TAB PO SCH (10:18)
[2024-09-16] MEDS: CLOPIDOGREL BISULFATE 75 MG TAB PO SCH (11:13)
--- NOTE | 2024-09-16 11:52 | XRay Report ---
HISTORY: Right hip arthroplasty. TECHNIQUE: AP radiograph of the pelvis. Lateral view of the right hip. COMPARISON: Pelvic and right hip radiographs dated 09/15/2024. FINDINGS: Right hip arthroplasty in appropriate alignment. No periprosthetic lucency or fracture. Intra-articular and soft tissue gas is likely postsurgical. Lateral skin krissy. The visible pelvis appears intact. The left femoral head and proximal femur appear intact. Mild degenerative changes of the left hip and pelvis. IMPRESSION: Expected postoperative appearance following right hip arthroplasty. Electronically signed by Tim Spivey 09-16-2024 11:51 AM
[2024-09-16] MEDS: SODIUM CHLORIDE 0.9% 500 ML IV ONE ×3 (13:20→16:29)
[2024-09-16 13:44] LABS: Hematocrit (blood only) 40.6 % (37.0-47.0); Hemoglobin 13.4 g/dl (12.0-16.0)
[2024-09-16] MEDS: ceFAZolin 1000MG 1,000 MG/7.5 ML SYR IV SCH (14:04)
--- NOTE | 2024-09-16 14:04 | XRay Report ---
HISTORY: Hypoxia. TECHNIQUE: Portable AP radiograph of the chest. COMPARISON: Chest radiograph dated 09/15/2024. FINDINGS: Evaluation is limited by rotation. No new focal consolidation. No pneumothorax or effusion. Top normal heart size. No acute osseous abnormality. IMPRESSION: No acute cardiopulmonary findings within the limitations of significant rotation. Electronically signed by Tim Spivey 09-16-2024 2:04 PM
--- NOTE | 2024-09-16 15:25 | Hospitalist Progress Note ---
Date of Service September 16, 2024 Assessment & Plan (1) Fracture of femoral neck, right: (2) Fall: (3) Vascular dementia: (4) CAD (coronary artery disease): (5) HLD (hyperlipidemia): Plan per previous hospitalist notes with addendum: Right displaced subcapital neck fracture Mechanical fall - Admit to [facility]. no tele for now (no findings in ER on tele or EKG, no chest complaints, wires likely to further confuse the patient with severe dementia) - EKG reviewed, CXR is negative - Imaging reviewed showing a right mildly displaced subcapital femoral neck fracture - Analgesia and bowel regimen ordered - PT/OT after surgery, patient will need evaluated for possible rehab therapy - discussed with Dr. Shetty, no OR today, plan for tomorrow will make n.p.o. after midnight - have relayed this information to the pts over the phone 09/16 Right Hip Hemiarthroplasty(Right) - Remi Shetty MD (+) hypotensive repeat Hg13 IV NSS 1 L bolus given BP improving CXR: no pneumonia, CHF wean off oxygen accordingly CAD HLD - Pt is on plavix and aspirin, beta capo - hold Metoprolol for now in light of hypotension hold ASA, Plavix until ok with Ortho Severe vascular dementia without behavioral disturbance - Does not appear she is on any dementia medications - Likely requires frequent reorientation, avoid sedative materials such as Ativan - Patient may require feeding assistance DVT ppx: heparin when OK with Ortho CODE: Full code -discussed with via phone Dispo: PT/OT evaluation Admission and Anticipated Discharge Date Admission Date: September 15, 2024 Subjective ff up for hip fracture, etc seen s/p surgery BP syst 90s sleeping, drowsy, opens eyes occasionally and mumbles words patient's at bedside visiting on 2 L NC no signs of distress, pain no other issues per marketing automation manager of Systems Review of Systems: all noted and negative except for above Physical Exam Physical Exam: General- drowsy, not in distress,breathing with no effort or accessory muscle use Eyes- anicteric Neck- no JVD Lungs- clear breath sounds bilaterally, no rales/wheezes Heart- tachycardic, regular rhythm; no murmurs Abdomen- normal bowel sounds, nondistended, soft, nontender Extremities- no pretibial edema, no calf tenderness Neuro-drowsy, no gross focal neurologic deficits Skin- warm & dry Results & Data Results & Data Vital Signs (Past 12 Hours) Vital Signs Temp Pulse Resp BP Pulse Ox O2 Del Method O2 Flow Rate 09/16/24 14:38 36.5 C 113 H 18 114/73 91 Nasal Cannula 3 09/16/24 12:30 37.3 C 134 H 18 90/63 L 92 Nasal Cannula 3 09/16/24 11:30 37.3 C 122 H 16 94/64 L 94 Oxymask 3 09/16/24 11:00 36.4 C L 68 16 106/74 92 Oxymask 09/16/24 10:32 36.6 C 92 H 16 106/65 92 Non-rebreather 3 09/16/24 10:05 117 H 14 115/73 94 Oxymask 3 09/16/24 09:55 36.9 C 116 H 12 108/78 95 Oxymask 3 09/16/24 09:45 114 H 12 102/71 95 Oxymask 4 09/16/24 09:35 115 H 16 114/79 95 Oxymask 4 09/16/24 09:25 112 H 21 114/82 98 Oxymask 6 09/16/24 09:15 109 H 15 118/67 97 Oxymask 8 09/16/24 09:05 111 H 14 120/85 97 Oxymask 10 09/16/24 08:55 36.5 C 105 H 12 100/78 97 Oxymask 10 all noted and reviewed including below
[2024-09-16] MEDS: SODIUM CHLORIDE 0.9% 1,000 ML IV SCH (15:58)
[2024-09-16 18:25] LABS: Hematocrit (blood only) 39.3 % (37.0-47.0); Hemoglobin 12.8 g/dl (12.0-16.0)
--- NOTE | 2024-09-17 07:20 | Orthopedic Progress Note ---
Date of Service September 17, 2024 Assessment & Plan (1) Fracture of femoral neck, right: Plan: 83-year-old female with advanced dementia postop day 1 from a cemented bipolar hip arthroplasty for fracture. Appears to be doing reasonably well. Pain seems to be controlled. Hips located. She is neurologically intact. Plan: 1. DVT prophylaxis including thigh-high teds, SCDs, and can be back on her normal dose of Plavix. 2. PT/OT. Weight-bear as tolerated. Needs to have a hip precautions. 3. Pain control. Appears to be reasonably well-controlled. 4. Medical management as per the medicine service. 5. Disposition. She is orthopedically okay for discharge anytime medically stable. She can weight-bear as tolerated. Routine wound care to the right hip. Orthopedic follow-up 2 to 3 weeks from surgery date. Any orthopedic questions can be directly [phone]. (2) HLD (hyperlipidemia): (3) Vascular dementia: (4) CAD (coronary artery disease): Admission and Anticipated Discharge Date Admission Date: September 15, 2024 Subjective 83-year-old female with advanced dementia postop day 1 from a right cemented bipolar hip arthroplasty for fracture. Appears relatively comfortable. Difficult to clinically evaluate due to underlying dementia. Physical Exam Physical Exam: Physical examination was a pleasant Roseanna female. Lying bed looks pretty comfortable. Examination of right hip and leg reveals leg to be well aligned. Dressings clean dry and intact. She spontaneously moves her foot up and down. Results & Data Vital Signs (Past 12 Hours) Vital Signs Temp Pulse Resp BP BP Pulse Ox O2 Del Method 09/17/24 03:00 37.0 C 108 H 15 115/73 92 Nasal Cannula 09/16/24 23:05 37.0 C 113 H 16 115/62 93 Nasal Cannula 09/16/24 20:48 Nasal Cannula O2 Flow Rate 09/17/24 03:00 2 09/16/24 23:05 2 09/16/24 20:48 2 Laboratory Results Labs are pending.
[2024-09-17 07:59] LABS: Basophils # (auto) 0.02 K/uL (0.00-0.20); Basophils % (auto) 0.2 %; Eosinophils # (auto) 0.03 K/uL (0.00-0.50); Eosinophils % (auto) 0.4 %; Hematocrit (blood only) 33.4 % (37.0-47.0); Immature Granulocytes # (auto) 0.05 K/uL (0.01-0.20); Immature Granulocytes % (auto) 0.6 %; Lymphocytes # (auto) 0.87 K/uL (1.20-3.40); Lymphocytes % (auto) 10.4 %; Mean Corpuscular Hemoglobin 28.6 pg (25.0-34.0); Mean Corpuscular Hgb Conc 32.9 g/dL (32.0-36.0); Mean Platelet Volume 10.8 fL (9.4-12.4); Monocytes # (auto) 0.59 K/uL (0.11-0.59); Monocytes % (auto) 7.1 %; Neutrophils # (auto) 6.77 K/uL (1.40-6.50); Neutrophils % (auto) 81.3 %; Platelet Count 103 K/uL (130-400); RDW Coefficient of Variation 13.5 % (11.5-14.5); RDW Standard Deviation 43.2 fL (36.4-46.3); Red Blood Count 3.84 M/uL (4.20-5.40); White Blood Count 8.33 K/ul (4.8-10.8)
[2024-09-17 08:21] LABS: BUN Creatinine Ratio 24.6 (10-20); Calcium 7.9 mg/dl (8.6-10.3); Creatinine Clr Calc Pharmacy 59.6 ml/min; Potassium 3.9 mmol/L (3.5-5.1)
[2024-09-17] MEDS: METOPROLOL TARTRATE 25 MG TAB PO SCH (08:26)
[2024-09-17 09:15] LABS: Prealbumin 12.3 mg/dl (20-40)
--- NOTE | 2024-09-17 14:22 | Hospitalist Progress Note ---
Date of Service September 17, 2024 Assessment & Plan (1) Fracture of femoral neck, right: (2) Fall: (3) Vascular dementia: (4) CAD (coronary artery disease): (5) HLD (hyperlipidemia): Plan per previous hospitalist notes with addendum: Right displaced subcapital neck fracture Mechanical fall Age-related osteoporosis w current pathological fracture, right femur - Admit to [facility]. no tele for now (no findings in ER on tele or EKG, no chest complaints, wires likely to further confuse the patient with severe dementia) - EKG reviewed, CXR is negative - Imaging reviewed showing a right mildly displaced subcapital femoral neck fracture - Analgesia and bowel regimen ordered - PT/OT after surgery, patient will need evaluated for possible rehab therapy - discussed with Dr. Shetty, no OR today, plan for tomorrow will make n.p.o. after midnight - have relayed this information to the pts over the phone 09/16 Right Hip Hemiarthroplasty(Right) - Remi Shetty MD (+) hypotensive repeat Hg13 IV NSS 1 L bolus given BP improving CXR: no pneumonia, CHF wean off oxygen accordingly 09/17 more alert today BP on the soft side but improved, continue IV fluids Hg 11, likely from acute blood loss anemia continue to monitor closely CAD HLD - Pt is on plavix and aspirin, beta capo - Metoprolol decreased to 12.5mg BID from 50mg BID to prevent hypotension may resume ASA and Plavix per Ortho Severe vascular dementia without behavioral disturbance - Does not appear she is on any dementia medications - Likely requires frequent reorientation, avoid sedative materials such as Ativan - Patient may require feeding assistance DVT ppx: heparin when OK with Ortho CODE: Full code -discussed with via phone Dispo: PT/OT evaluation Admission and Anticipated Discharge Date Admission Date: September 15, 2024 Subjective ff up for R hip surgery, etc seen resting in bed, awake, alert on 2 L NC patient's at bedside visiting according to him patient appears better today more interactive declined breakfast and drink though no signs of pain, respiratory distress no other symptoms Review of Systems Review of Systems: all noted and negative except for above Physical Exam Physical Exam: General-awake, alert, pleasantly confused, nonverbal, not in distress, breathing with no effort or accessory muscle use Eyes- anicteric Neck- no JVD Lungs- clear breath sounds bilaterally, no rales/wheezes Heart- normal rate, regular rhythm; no murmurs Abdomen- normal bowel sounds, nondistended, soft, nontender Extremities- no pretibial edema, no calf tenderness RUE: mild edema of forearm from IV site area Neuro- alert, oriented x 3; no gross focal neurologic deficits Skin- warm & dry Results & Data Results & Data Vital Signs (Past 12 Hours) Vital Signs Temp Pulse Resp BP BP Pulse Ox O2 Del Method 09/17/24 09:18 Nasal Cannula 09/17/24 07:53 36.8 C 93 H 17 118/58 L 92 Nasal Cannula 09/17/24 03:00 37.0 C 108 H 15 115/73 92 Nasal Cannula O2 Flow Rate 09/17/24 09:18 3 09/17/24 07:53 09/17/24 03:00 2 all noted and reviewed including below
[2024-09-17] MEDS: ERGOCALCIFEROL 1250 MCG (50,000 UNITS) CAP PO SCH (16:47)
[2024-09-17] MEDS: POTASSIUM CHLORIDE 10 MEQ TABCR PO STA (19:32)
[2024-09-17] MEDS: POTASSIUM CHLORIDE / WTR 10 MEQ/100 ML PLCT IV ONE (19:46)
--- NOTE | 2024-09-17 20:05 | Communication Note ---
Date of Service: September 17, 2024 Notified by RN of high EWS risk score. Patient tachycardic, hypoxemic. Patient with labored breathing. Unable to respond to chest pain questions given dementia as per RN Patient later noted to be febrile PPE Demented, respiratory distress, noisy respiration Nasal cannula in place Tachycardic Scattered expiratory wheezes Chest x-ray: 1. Consolidative atelectasis in the left lung base. 2. Probable left pleural effusion. EKG as per my interpretation: Rate 105, sinus tachycardia, normal axis, septal infarct, nonspecific T abnormalities Troponin 780 AP Severe sepsis SIRS plus hypoxemia Hospital-acquired pneumonia Recent surgery Troponin elevation second to above PCU transfer Supplemental O2 CS, Ertapenem Follow troponin, TTE We relay to AM provider.
[2024-09-17 20:16] LABS: Magnesium 1.5 mg/dl (1.7-2.4)
[2024-09-17 20:28] LABS: Base Excess VBG 0.6 mEq/L; HCO3 VBG 25 mmol/L; Oxygen Saturation VBG 81.9 %; PCO2 VBG 36 mmHg (38-50); PO2 VBG 46 mmHg; pH VBG 7.44 (7.36-7.41)
[2024-09-17] MEDS: LEVALBUTEROL 1.25 MG/3 ML NEB NEB STA (20:42)
[2024-09-17] MEDS: IPRATROPIUM BROMIDE NEB SOLN 0.02% 0.5MG/2.5ML VIAL INH STA (20:42)
--- NOTE | 2024-09-17 20:52 | XRay Report ---
Exam(s): XR CXR 1 VIEW EXAM: XR Chest, 1 View CLINICAL HISTORY: Reason for exam: low o2. TECHNIQUE: Frontal view of the chest. COMPARISON: 09/16/24. FINDINGS: Lungs: Consolidative atelectasis in the left lung base. Reduced lung volumes and senescent changes. Pleural space: Probable left pleural effusion. Mediastinum: Cardiomediastinal silhouette unchanged. Bones/joints: No acute fracture. Upper abdomen: Unremarkable as visualized. IMPRESSION: 1. Consolidative atelectasis in the left lung base. 2. Probable left pleural effusion. Electronically signed by: Sukhdev Jackson M.D. 09/17/24 20:50 PM
[2024-09-17 20:56] LABS: Hematocrit (blood only) 32.3 % (37.0-47.0); Hemoglobin 10.5 g/dl (12.0-16.0); Mean Corpuscular Hemoglobin 28.5 pg (25.0-34.0); Mean Corpuscular Hgb Conc 32.5 g/dL (32.0-36.0); Mean Corpuscular Volume 87.8 fL (80.0-100.0); Mean Platelet Volume 11.1 fL (9.4-12.4); Platelet Count 98 K/uL (130-400); RDW Coefficient of Variation 13.5 % (11.5-14.5); RDW Standard Deviation 43.7 fL (36.4-46.3); Red Blood Count 3.68 M/uL (4.20-5.40); White Blood Count 7.57 K/ul (4.8-10.8)
[2024-09-17 21:01] LABS: Partial Thromboplastin Ratio 0.9; Partial Thromboplastin Time 24 Seconds (21-31)
[2024-09-17] MEDS: MoRPHine SULFATE 2 MG/ML CARP IV PRN (21:17)
[2024-09-17] MEDS: ACETAMINOPHEN 1,000 MG/100 ML VIAL IV STA (21:24)
[2024-09-17] MEDS: MAGNESIUM SULFATE / D5W 1 GM/100 ML BAG IV SCH (21:26)
[2024-09-17] MEDS: ALBUMIN 25% 12.5 GM/50 ML VIAL IV ONE (21:28)
[2024-09-17] MEDS: METOPROLOL TARTRATE 1 MG/ML VIAL IV STA (21:53)
[2024-09-17 22:30] LABS: Basophils # (auto) 0.03 K/uL (0.00-0.20); Basophils % (auto) 0.4 %; Eosinophils # (auto) 0.09 K/uL (0.00-0.50); Eosinophils % (auto) 1.2 %; Immature Granulocytes # (auto) 0.02 K/uL (0.01-0.20); Immature Granulocytes % (auto) 0.3 %; Lymphocytes # (auto) 0.86 K/uL (1.20-3.40); Lymphocytes % (auto) 11.4 %; Monocytes # (auto) 0.44 K/uL (0.11-0.59); Monocytes % (auto) 5.8 %; Neutrophils # (auto) 6.13 K/uL (1.40-6.50); Neutrophils % (auto) 80.9 %; Polychromasia 1+
[2024-09-17] MEDS: ERTAPENEM 1000MG 1,000 MG/10 ML SYR IV SCH (22:37)
[2024-09-17 23:33] LABS: Influenza A virus by PCR Negative (Neg); Influenza B virus by PCR Negative (Neg); RSV by PCR Negative (Neg); SARS CoV2 RNA(COVID-19) Ceph NEGATIVE (Negative)
[2024-09-18] MEDS: ALBUMIN 25% 12.5 GM/50 ML VIAL IV ONE (03:27)
[2024-09-18 06:33] LABS: Basophils # (auto) 0.03 K/uL (0.00-0.20); Basophils % (auto) 0.4 %; Eosinophils # (auto) 0.17 K/uL (0.00-0.50); Eosinophils % (auto) 2.5 %; Immature Granulocytes # (auto) 0.02 K/uL (0.01-0.20); Immature Granulocytes % (auto) 0.3 %; Lymphocytes # (auto) 0.92 K/uL (1.20-3.40); Lymphocytes % (auto) 13.8 %; Mean Corpuscular Hemoglobin 28.7 pg (25.0-34.0); Mean Corpuscular Hgb Conc 32.3 g/dL (32.0-36.0); Mean Corpuscular Volume 88.8 fL (80.0-100.0); Mean Platelet Volume 10.8 fL (9.4-12.4); Monocytes # (auto) 0.44 K/uL (0.11-0.59); Monocytes % (auto) 6.6 %; Neutrophils # (auto) 5.11 K/uL (1.40-6.50); Neutrophils % (auto) 76.4 %; Platelet Count 103 K/uL (130-400); RDW Coefficient of Variation 13.6 % (11.5-14.5); RDW Standard Deviation 44.5 fL (36.4-46.3); Red Blood Count 3.49 M/uL (4.20-5.40); White Blood Count 6.69 K/ul (4.8-10.8)
[2024-09-18 06:55] LABS: BUN Creatinine Ratio 36.2 (10-20); Calcium 8.2 mg/dl (8.6-10.3); Creatinine Clr Calc Pharmacy 77.6 ml/min; Potassium 4.1 mmol/L (3.5-5.1)
[2024-09-18 07:03] LABS: Troponin I High Sensitivity 434.5 pg/ml (0-14)
[2024-09-18] MEDS: METOPROLOL TARTRATE 25 MG TAB PO SCH (07:52)
--- NOTE | 2024-09-18 08:59 | Orthopedic Progress Note ---
Date of Service September 18, 2024 Assessment & Plan (1) Fracture of femoral neck, right: Plan: 83-year-old female with advanced dementia postop day 2 from a cemented bipolar hip arthroplasty for fracture. Orthopedically she seems to be stable. Plan: 1. DVT prophylaxis including thigh-high teds, SCDs, back on her Plavix and baby aspirin once a day. 2. PT/OT. She can weight-bear as tolerated. Total hip precautions. Not sure how much therapy she can tolerate with her underlying dementia. 3. Pain control. Seems reasonably well-controlled. Does not seem to be in significant pain. 4. Medical management as per the medicine service. 5. Disposition. She is orthopedically okay for discharge anytime medically stable. I need to see her back 2 to 3 weeks out from surgery date. Any orthopedic questions can be directly [phone]. (2) Vascular dementia: (3) CAD (coronary artery disease): (4) HLD (hyperlipidemia): Admission and Anticipated Discharge Date Admission Date: September 15, 2024 Subjective 83-year-old female with multiple medical comorbidities with significant dementia now postop day 2 from a cemented bipolar hip arthroplasty for fracture. She is lying in bed this morning. Fairly minimally responsive. Seems to be sleeping and resting comfortably. Physical Exam Physical Exam: Physical nation was that [place] female is lying in bed. She is fairly minimally responsive. Examination of the right hip and leg reveals dressing be clean dry and intact. Leg lengths are equal. Neurovascular exam was difficult to evaluate due to her right dementia. Results & Data Vital Signs (Past 12 Hours) Vital Signs Temp Pulse Pulse Resp BP BP Pulse Ox 09/18/24 08:00 37.0 C 88 16 136/74 97 09/18/24 03:11 37.3 C 75 21 110/58 L 96 09/18/24 00:42 103 H 09/17/24 23:07 37.3 C 83 24 107/83 95 09/17/24 22:40 37.7 C H 09/17/24 22:11 87 109/70 09/17/24 21:53 106 H 124/63 09/17/24 21:00 O2 Del Method O2 Flow Rate 09/18/24 08:00 Oxymask 4 09/18/24 03:11 Oxymask 4 09/18/24 00:42 09/17/24 23:07 Oxymask 4 09/17/24 22:40 09/17/24 22:11 09/17/24 21:53 09/17/24 21:00 Nasal Cannula 3 Laboratory Results Hemoglobin is 10.0. Macro is 31.0. Electrolytes are stable.
[2024-09-18] MEDS: OPTIRAY 320 125ml IV ONE (09:05)
--- NOTE | 2024-09-18 09:25 | CT Scan Report ---
CT ANGIOGRAM OF THE CHEST CLINICAL HISTORY: Hypoxia. Evaluate for pulmonary embolus. COMPARISON STUDY: Chest CT August 28, 2012. Chest radiograph September 17, 2024. TECHNIQUE: Following the IV administration of 120 cc of Optiray 320, CT angiogram of the chest was pe rformed from the upper abdomen to the thoracic inlet utilizing the pulmonary embolus protocol. Images are reviewed in the axial, sagittal, and coronal planes. 3-D MIPS images are created and assessed. I V contrast was administered without complication. A dose lowering technique was utilized adhering to the principles of ALARA. CT DOSE: 694.89 mGy.cm FINDINGS: Several left-sided segmental and subsegmental pulmonary emboli are present. No central pulm onary emboli are identified. Exam is moderately compromised by respiratory motion. The heart is mildl y enlarged. There is no thoracic lymphadenopathy. No pneumothorax is present. Small bilateral pleural effusions are present. Associated subpleural opacities favor atelectasis. Lungs are suboptimally ass essed due to respiratory motion. There is no consolidation to suggest pneumonia. There may be mild in terstitial pulmonary edema. A T8 compression fracture is chronic. There is 40% loss of height of the inferior endplate of T7 which is new since prior CT. There is minimal retropulsion. Several hepatic c ysts are incidentally noted. IMPRESSION: 1. Several left-sided segmental and subsegmental pulmonary emboli. 2. Small bilateral pleural effusions. Associated subpleural opacities suggest atelectasis. No consoli dation to suggest pneumonia. No definite pulmonary infarct. 3. Suspected mild interstitial pulmonary edema. 4. T7 compression fracture with 40% loss of vertebral body height. This fracture is likely subacute. ACT 112: Negative or not required by law. Electronically signed by: Neo Brock M.D. 09/18/2024 9:23 AM
[2024-09-18] MEDS: HEPARIN 25000 UNIT/500 ML D5W 25,000 UNITS/500 ML BAG IV SCH (10:58)
[2024-09-18] MEDS: HEPARIN SOD (PORCINE) 1000 UNIT/ML IV ONE (11:00)
[2024-09-18] MEDS: Heparin IV Adult Wt-Based Standard w/ INITIAL Bolus Protocol IV STA (11:11)
[2024-09-18] MEDS: POLYETHYLENE (MIRALAX) 17 GM PACK PO SCH (11:12)
--- NOTE | 2024-09-18 15:52 | Hospitalist Progress Note ---
Date of Service September 18, 2024 Assessment & Plan (1) Fracture of femoral neck, right: (2) Fall: (3) Vascular dementia: (4) CAD (coronary artery disease): (5) HLD (hyperlipidemia): Plan per previous hospitalist notes with addendum: Right displaced subcapital neck fracture s/p Hemiarthroplasty Mechanical fall Age-related osteoporosis w current pathological fracture, right femur 09/16 Right Hip Hemiarthroplasty(Right) - Remi Shetty MD hypotensive- responded to IV fluids 09/17 febrile, tachycardic, hypoxic started on Ertapenem for possible PNA transferred to ICU 09/18 CT chest: (+) multiple left sided PEs no pneumonia ok to start heparin drip per Ortho Dr. Shetty per , patient mostly in bed/chair at home blood cultures pending d/c Ertapenem if negative Acute Pulmonary Emboli management per above CAD HLD - Pt is on plavix and aspirin, beta capo - Metoprolol decreased to 25 mg BID from 50mg BID to prevent hypotension 09/18 (+)troponin elevation- trending down EKG no signs if acute ischemia Echo: no wall motion abnormalities mild pulmonary hypertension Gr 1 diastolic dysfunction likely from demand ischemia monitor closely Severe vascular dementia without behavioral disturbance - Does not appear she is on any dementia medications - non verbal - requires feeding assistance DVT ppx: heparin when OK with Ortho CODE: Full code -discussed with via phone Dispo: PT/OT evaluation will likely need SNF Admission and Anticipated Discharge Date Admission Date: September 15, 2024 Subjective ff up for s/p R hip surgery, etc events overnight noted was febrile, tachycardic, hypoxic started Ertapenem for possible sepsis seen resting in bed, on 2 L NC patient's at bedside visiting states patient is more interactive today sleeping but easily awakened, smiling not in distress, pain no other issues Review of Systems Review of Systems: all noted and negative except for above Physical Exam Physical Exam: General- awake, nonverbal, not in distress, breathing with no effort or acc essory muscle use Eyes- anicteric Neck- no JVD Lungs- clear breath sounds bilaterally, no rales/wheezes Heart- normal rate, regular rhythm; no murmurs Abdomen- normal bowel sounds, nondistended, soft, nontender Extremities- no pretibial edema, no calf tenderness Neuro- awake, non verbal, no new gross focal neurologic deficits Skin- warm & dry Results & Data Results & Data Vital Signs (Past 12 Hours) Vital Signs Temp Pulse Resp BP BP Pulse Ox O2 Del Method 09/18/24 15:42 36.8 C 97 H 22 147/65 H 96 Room Air 09/18/24 11:16 36.6 C 82 20 109/57 L 97 Nasal Cannula 09/18/24 08:00 37.0 C 88 16 136/74 97 Oxymask 09/18/24 07:35 Nasal Cannula O2 Flow Rate 09/18/24 15:42 09/18/24 11:16 4 09/18/24 08:00 4 09/18/24 07:35 4 all noted and reviewed including below
[2024-09-18 17:39] LABS: Appearance Urine Clear (Clear); Bacteria Urine Automated None Seen (None Seen); Bilirubin Urine Negative (Negative); Blood Urine Trace (Negative); Cast Urine Automated 0-2 /lpf (0-2); Color Urine Yellow; Epithelial Cell Urine Auto 0-2 /hpf (0-2); Glucose Urine UA Trace (Negative); Ketones Urine 1+ (Negative); Leukocyte Esterase Urine Negative (Negative); Nitrite Urine Negative (Negative); Protein Urine 1+ (Negative); Specific Gravity Urine > 1.045 (1.000-1.030); Urobilinogen Urine Negative (Negative); WBC Urine Automated 0-5 /hpf (0-5)
[2024-09-18 18:40] LABS: ANTI-Xa, UFH(UnfractionatedHep 0.61 IU/ml (0.3-0.7)
[2024-09-18] MEDS: ACETAMINOPHEN 1,000 MG/100 ML VIAL IV STA (22:56)
[2024-09-19 06:46] LABS: Hematocrit (blood only) 30.8 % (37.0-47.0); Mean Corpuscular Hemoglobin 28.4 pg (25.0-34.0); Mean Corpuscular Hgb Conc 32.5 g/dL (32.0-36.0); Mean Corpuscular Volume 87.5 fL (80.0-100.0); Mean Platelet Volume 10.9 fL (9.4-12.4); Platelet Count 130 K/uL (130-400); RDW Coefficient of Variation 13.4 % (11.5-14.5); Red Blood Count 3.52 M/uL (4.20-5.40)
[2024-09-19 07:18] LABS: BUN Creatinine Ratio 32.7 (10-20); Calcium 8.3 mg/dl (8.6-10.3); Creatinine Clr Calc Pharmacy 74.7 ml/min; Potassium 3.9 mmol/L (3.5-5.1)
[2024-09-19 07:28] LABS: ANTI-Xa, UFH(UnfractionatedHep 0.76 IU/ml (0.3-0.7)
--- NOTE | 2024-09-19 10:28 | Orthopedic Progress Note ---
Date of Service September 19, 2024 Assessment & Plan (1) Fracture of femoral neck, right: Plan: 83-year-old female with advanced dementia among multiple other medical issues postop day 3 from right cemented bipolar hip arthroplasty for fracture without pulmonary emboli. Clinically she seems to be fine. Does not seem uncomfortable. Seems to be breathing reasonably comfortably. Looks to be pretty much at her baseline per her . Plan: Patient has been started on heparin. She is currently on heparin, Plavix, and aspirin. I think we have to be careful about giving her too much anticoagulation. I think aggressive anticoagulation with her level of medical issues and dementia is questionable regardless. I would recommend symptomatic management and backing off on some of this anticoagulation to prevent further problems such as significant hematomas. In any case we will leave this up to the medical physicians. At this point she can weight-bear as tolerated in the right leg. Routine wound care of the right hip with dressing changes daily. Any orthopedic questions can be directly [phone] (2) Vascular dementia: (3) CAD (coronary artery disease): (4) HLD (hyperlipidemia): (5) Pulmonary embolism: Admission and Anticipated Discharge Date Admission Date: September 15, 2024 Subjective 83-year-old female with multiple medical comorbidities and advanced dementia now postop day 3 from right cemented bipolar hip arthroplasty for fracture. She is been hypoxic and tachycardic and CT scan reveals several wall pulmonary emboli. Patient is currently lying in bed looks comfortable. Sleeps most of the time. Her is at her bedside. Says she looks comfortable. Physical Exam Physical Exam: Physical examination reveals an elderly lady who is lying on bed. She is essentially laying there and sleeping. Minimally responsive. Examination of the right hip reveals the dressing be clean dry and intact. Thigh is soft and supple. She does spontaneously move her foot. Results & Data Vital Signs (Past 12 Hours) Vital Signs Temp Pulse Pulse Pulse Resp BP BP 09/19/24 08:30 09/19/24 07:53 36.5 C 22 L 91 H 22 128/97 09/19/24 07:41 82 09/19/24 02:32 37.3 C 83 21 126/71 09/18/24 22:40 37.6 C H 95 H 21 145/82 H Pulse Ox O2 Del Method O2 Flow Rate 09/19/24 08:30 Nasal Cannula 4 05/07/25 07:53 96 Nasal Cannula 4 09/19/24 07:41 09/19/24 02:32 94 Nasal Cannula 4 09/18/24 22:40 92 Nasal Cannula 4 Laboratory Results Hemoglobin is 10.0. Hematocrit is 30.8.
--- NOTE | 2024-09-19 13:08 | Hospitalist Progress Note ---
Date of Service September 19, 2024 Assessment & Plan (1) Fracture of femoral neck, right: (2) Fall: (3) Vascular dementia: (4) CAD (coronary artery disease): (5) HLD (hyperlipidemia): Plan Right displaced subcapital neck fracture s/p Hemiarthroplasty Mechanical fall Age-related osteoporosis w current pathological fracture, right femur Patient presented to the hospital with right sided displaced subcapital neck fracture. Postoperatively, patient was febrile, tachycardic and hypoxic; was transferred to ICU. CTA chest showed left-sided PE. Patient was started on heparin drip. Patient hemodynamically stable. Acute Pulmonary Emboli CTA chest showing PE Started on anticoagulation with heparin; plan to switch over to Eliquis from [employer] CAD HLD - Aspirin is stopped as patient is started on Eliquis; continue on Plavix and beta-capo - Metoprolol decreased to 25 mg BID from 50mg BID to prevent hypotension Demand ischemiahigh sensitive troponin was initially elevated and down trended gradually. Echo showed EF of 60 to 65% with grade 1 diastolic dysfunction Severe vascular dementia without behavioral disturbance - Does not appear she is on any dementia medications - requires feeding assistance DVT ppx: heparin CODE: Full code -discussed with via phone Dispo: Possible DC in a.m. depending on clinical improvement. Plan of care discussed with patient . I also discussed switching her over to Eliquis and stopping aspirin which he is agreeable with. Time spent evaluating patient, direct bedside care, chart review, placing orders, interpretation of diagnostic studies, discussion with consultants, patient, and family members, as well as other required patient management activities is 50 minutes Please note the above document was generated using voice recognition software. It may contain grammatical, syntax or spelling errors. Any formal questions or concerns about the content, text or information contained within the body of this dictation should be directly addressed to the provider for clarification Admission and Anticipated Discharge Date Admission Date: September 15, 2024 Subjective Patient seen and examined at bedside. Her is also at bedside; reports that patient has been doing better overall. Pain is well-controlled. Vital signs are stable. Review of Systems Review of Systems: All systems reviewed & are unremarkable except as noted in Subjective Physical Exam Physical Exam: General- awake, not in distress, breathing with no effort or accessory muscle use Eyes- anicteric Neck- no JVD Lungs- clear breath sounds bilaterally, no rales/wheezes Heart- normal rate, regular rhythm; no murmurs Abdomen- normal bowel sounds, nondistended, soft, nontender Extremities-Dressing over the incision intact. No overlying soakage. Neuro- awake, non verbal, no new gross focal neurologic deficits Skin- warm & dry Results & Data Results & Data Vital Signs (Past 12 Hours) Vital Signs Temp Pulse Pulse Pulse Resp BP BP 09/19/24 11:34 36.6 C 95 H 20 101/66 09/19/24 08:30 09/19/24 07:53 36.5 C 22 L 91 H 22 128/97 09/19/24 07:41 82 09/19/24 02:32 37.3 C 83 21 126/71 Pulse Ox O2 Del Method O2 Flow Rate 09/19/24 11:34 95 Nasal Cannula 4 09/19/24 08:30 Nasal Cannula 4 09/19/24 07:53 96 Nasal Cannula 4 09/19/24 07:41 09/19/24 02:32 94 Nasal Cannula 4
[2024-09-19] MEDS: APIXABAN 5 MG TABLET PO SCH (20:00)
[2024-09-20 00:35] LABS: ANTI-Xa, UFH(UnfractionatedHep > 1.50 IU/ml (0.3-0.7)
[2024-09-20 07:21] LABS: Basophils # (auto) 0.03 K/uL (0.00-0.20); Basophils % (auto) 0.6 %; Eosinophils # (auto) 0.11 K/uL (0.00-0.50); Eosinophils % (auto) 2.1 %; Hematocrit (blood only) 25.4 % (37.0-47.0); Hemoglobin 8.4 g/dl (12.0-16.0); Immature Granulocytes # (auto) 0.02 K/uL (0.01-0.20); Immature Granulocytes % (auto) 0.4 %; Lymphocytes # (auto) 0.95 K/uL (1.20-3.40); Lymphocytes % (auto) 18.5 %; Mean Corpuscular Hemoglobin 28.5 pg (25.0-34.0); Mean Corpuscular Hgb Conc 33.1 g/dL (32.0-36.0); Mean Corpuscular Volume 86.1 fL (80.0-100.0); Mean Platelet Volume 10.7 fL (9.4-12.4); Monocytes # (auto) 0.48 K/uL (0.11-0.59); Monocytes % (auto) 9.4 %; Neutrophils # (auto) 3.54 K/uL (1.40-6.50); Platelet Count 151 K/uL (130-400); RDW Coefficient of Variation 13.2 % (11.5-14.5); RDW Standard Deviation 41.7 fL (36.4-46.3); Red Blood Count 2.95 M/uL (4.20-5.40); White Blood Count 5.13 K/ul (4.8-10.8)
--- NOTE | 2024-09-20 07:22 | Orthopedic Progress Note ---
Date of Service September 20, 2024 Assessment & Plan (1) Fracture of femoral neck, right: Plan: 83-year-old female with advanced dementia now 4 days out from a cemented bipolar hip arthroplasty for fracture complicated by pulmonary emboli. She looks to be pretty stable. She is resting in bed. Looks comfortable. Does not appear to be in significant pain. Does not appear short of breath or in any distress. Plan: 1. DVT prophylaxis/treatment for PE. As per the medicine service. She is on anticoagulation. 2. PT/OT. She can fully weight-bear as tolerated. Needs to obey hip precautions. 3. Pain control. Seems to be doing pretty well with current pain level. Would recommend just using Tylenol for pain. 4. Disposition. She is orthopedically okay for discharge anytime. I need to see her back 2 to 3 weeks out from surgery date. Any orthopedic questions can be directly [phone]. (2) Vascular dementia: (3) Pulmonary embolism: Admission and Anticipated Discharge Date Admission Date: September 15, 2024 Subjective 83-year-old female with severe advanced dementia now postop day 4 from right cemented bipolar hip arthroplasty for fracture. She is developed multiple pulmonary emboli. She is on anticoagulation. She is currently lying in bed and about her baseline state with fairly minimal responsiveness. Seems to be rest ing and sleeping comfortably. Physical Exam Physical Exam: Examination of the right hip and leg reveals the leg lengths are equal. Dressings clean dry and intact. Thigh is soft and supple. Results & Data Vital Signs (Past 12 Hours) Vital Signs Temp Pulse Pulse Resp BP Pulse Ox O2 Del Method 09/20/24 03:38 36.9 C 107 H 21 108/70 96 Nasal Cannula 09/19/24 23:00 103 H 20 129/78 95 Nasal Cannula 09/19/24 21:59 90 09/19/24 20:39 Nasal Cannula 09/19/24 19:53 36.8 C 84 22 125/67 96 Nasal Cannula O2 Flow Rate 09/20/24 03:38 2 09/19/24 23:00 3 09/19/24 21:59 09/19/24 20:39 3 09/19/24 19:53 4 Laboratory Results Labs are all pending.
[2024-09-20 07:40] LABS: BUN Creatinine Ratio 54.8 (10-20); Calcium 8.1 mg/dl (8.6-10.3); Creatinine Clr Calc Pharmacy 87.4 ml/min; Potassium 3.6 mmol/L (3.5-5.1)
[2024-09-20 07:46] LABS: ANTI-Xa, UFH(UnfractionatedHep 1.07 IU/ml (0.3-0.7)
[2024-09-20] MEDS: APIXABAN 5 MG TABLET PO SCH (08:35)
--- NOTE | 2024-09-20 12:36 | Hospitalist Progress Note ---
Date of Service September 20, 2024 Assessment & Plan (1) Fracture of femoral neck, right: (2) Fall: (3) Vascular dementia: (4) CAD (coronary artery disease): (5) HLD (hyperlipidemia): Plan Right displaced subcapital neck fracture s/p Hemiarthroplasty Mechanical fall Age-related osteoporosis w current pathological fracture, right femur Patient presented to the hospital with right sided displaced subcapital neck fracture. Postoperatively, patient was febrile, tachycardic and hypoxic; was transferred to ICU. CTA chest showed left-sided PE. Patient was started on heparin drip. Patient switched over to Eliquis on September 19, 2024 Acute Pulmonary Emboli CTA chest showing PE Started on anticoagulation with heparin; [facility] - Aspirin is stopped as patient is started on Eliquis; continue on Plavix and beta-capo - Metoprolol decreased to 25 mg BID from 50mg BID to prevent hypotension Demand ischemiahigh sensitive troponin was initially elevated and down trended gradually. Echo showed EF of 60 to 65% with grade 1 diastolic dysfunction Severe vascular dementia without behavioral disturbance - Does not appear she is on any dementia medications Acute blood loss anemia Hemoglobin down trended from 13.4 on 09/16 to 8.4 on 09/20/2024; likely secondary to surgery and initiation of anticoagulation. Monitor hemoglobin for now. - requires feeding assistance DVT ppx: eliquis CODE: Full code Dispo: Monitor hemoglobin; possible DC in a.m. if hemoglobin continues to remain stable Please note the above document was generated using voice recognition software. It may contain grammatical, syntax or spelling errors. Any formal questions or concerns about the content, text or information contained within the body of this dictation should be directly addressed to the provider for clarification Admission and Anticipated Discharge Date Admission Date: September 15, 2024 Subjective Patient seen and examined at bedside. She is comfortable; not in pain or discomfort Vital signs remained stable and she is saturating at 95% in 2 L of oxygen by nasal cannula Review of Systems Review of Systems: All systems reviewed & are unremarkable except as noted in Subjective Physical Exam Physical Exam: General- awake, not in distress, breathing with no effort or accessory muscle use Eyes- anicteric Neck- no JVD Lungs- clear breath sounds bilaterally, no rales/wheezes Heart- normal rate, regular rhythm; no murmurs Abdomen- normal bowel sounds, nondistended, soft, nontender Extremities-Dressing over the incision intact. No overlying soakage. Neuro- awake, non verbal, no new gross focal neurologic deficits Skin- warm & dry Results & Data Results & Data Vital Signs (Past 12 Hours) Vital Signs Temp Pulse Pulse Resp BP BP Pulse Ox 09/20/24 12:02 92 H 18 109/69 94 09/20/24 09:00 09/20/24 07:56 104 H 20 121/74 94 09/20/24 07:20 92 H 09/20/24 03:38 36.9 C 107 H 21 108/70 96 O2 Del Method O2 Flow Rate 09/20/24 12:02 Nasal Cannula 2 09/20/24 09:00 Nasal Cannula 2 09/20/24 07:56 Nasal Cannula 2 09/20/24 07:20 09/20/24 03:38 Nasal Cannula 2
--- NOTE | 2024-09-21 08:15 | Orthopedic Progress Note ---
Date of Service September 21, 2024 Assessment & Plan (1) Fracture of femoral neck, right: Postop day 5 from a right cemented bipolar hip hemiarthroplasty. - Should continue DVT prophylaxis which is also treatment for her PE. This is from the medicine service. - Posterior hip or cautions in place. Abduction pillow in place. - Doing well currently on pain regimen with Tylenol. - Follow-up as an outpatient in 2 to 3 weeks from surgery date with Dr. Shetty. - Orthopedically okay for discharge anytime but understand that she will be potentially going to [facility] soon. Subjective Operation Date: 09/16/24 07:30 Actual Procedures p Right Hip Hemiarthroplasty(Right) - Remi Shetty MD Patient is postop day 5 from a right hip hemiarthroplasty due to a hip fracture from a fall. Patient's is with her at today's visit. Patient does have baseline dementia. He states that they are trying to get her into [facility]. He said this may be on Tuesday. They deny any questions or concerns regarding the hip. Review of Systems All systems reviewed & are unremarkable except as noted in HPI & below. Physical Exam General: Patient is alert at today's visit. Does have baseline dementia and cognition changes. Per family, no additional cognition changes overnight or over the last few days. In regards to the right hip: Dressing is dry and intact. She has good motion of the right lower extremity. Abduction pillow is in place. Neurovascularly intact in the right lower extremity. Results & Data Results & Data Laboratory Results . Diagnostic Findings . PG Care Time/CCT Total # of Minutes Spent Total Time Spent with Patient: Total time spent is greater than 50% in coordination of care (as documented) at patient's floor/unit and/or counseling patient: Coding Level of Care Code 81091 Post Operative Follow-Up Diagnoses Fracture of femoral neck, right S72.001A
[2024-09-21 10:12] LABS: Basophils # (auto) 0.03 K/uL (0.00-0.20); Basophils % (auto) 0.6 %; Eosinophils # (auto) 0.12 K/uL (0.00-0.50); Eosinophils % (auto) 2.2 %; Hematocrit (blood only) 26.2 % (37.0-47.0); Hemoglobin 8.7 g/dl (12.0-16.0); Immature Granulocytes # (auto) 0.02 K/uL (0.01-0.20); Immature Granulocytes % (auto) 0.4 %; Lymphocytes # (auto) 0.88 K/uL (1.20-3.40); Lymphocytes % (auto) 16.1 %; Mean Corpuscular Hemoglobin 28.4 pg (25.0-34.0); Mean Corpuscular Hgb Conc 33.2 g/dL (32.0-36.0); Mean Corpuscular Volume 85.6 fL (80.0-100.0); Monocytes # (auto) 0.39 K/uL (0.11-0.59); Monocytes % (auto) 7.2 %; Neutrophils # (auto) 4.01 K/uL (1.40-6.50); Neutrophils % (auto) 73.5 %; Platelet Count 191 K/uL (130-400); RDW Coefficient of Variation 13.5 % (11.5-14.5); RDW Standard Deviation 42.4 fL (36.4-46.3); Red Blood Count 3.06 M/uL (4.20-5.40); White Blood Count 5.45 K/ul (4.8-10.8)
[2024-09-21 10:28] LABS: BUN Creatinine Ratio 51.1 (10-20); Calcium 8.6 mg/dl (8.6-10.3); Creatinine Clr Calc Pharmacy 79.4 ml/min; Potassium 3.6 mmol/L (3.5-5.1)
[2024-09-21 10:37] LABS: ANTI-Xa, UFH(UnfractionatedHep > 1.50 IU/ml (0.3-0.7)
--- NOTE | 2024-09-21 11:01 | Hospitalist Progress Note ---
Date of Service September 21, 2024 Assessment & Plan (1) Fracture of femoral neck, right: (2) Fall: (3) Vascular dementia: (4) CAD (coronary artery disease): (5) HLD (hyperlipidemia): Plan Right displaced subcapital neck fracture s/p Hemiarthroplasty Mechanical fall Age-related osteoporosis w current pathological fracture, right femur Acute Pulmonary Emboli Patient presented to the hospital with right sided displaced subcapital neck fracture. Postoperatively, patient was febrile, tachycardic and hypoxic; was transferred to ICU. CTA chest showed left-sided PE. Patient was started on heparin drip. Patient switched over to Eliquis on September 19, 2024 CAD HLD - Aspirin is stopped as patient is started on Eliquis; continue on Plavix and beta-capo - Metoprolol decreased to 25 mg BID from 50mg BID to prevent hypotension Demand ischemiahigh sensitive troponin was initially elevated and down trended gradually. Echo showed EF of 60 to 65% with grade 1 diastolic dysfunction Severe vascular dementia without behavioral disturbance - Does not appear she is on any dementia medications Acute blood loss anemia Hemoglobin down trended from 13.4 on 09/16 to 8.4 on 09/20/2024; likely secondary to surgery and initiation of anticoagulation. Stable Monitor hemoglobin for now. - requires feeding assistance DVT ppx: eliquis CODE: Full code Dispo:Possible DC over the weekend if patient's clinical status continues to be stable. Please note the above document was generated using voice recognition software. It may contain grammatical, syntax or spelling errors. Any formal questions or concerns about the content, text or information contained within the body of this dictation should be directly addressed to the provider for clarification Admission and Anticipated Discharge Date Admission Date: September 15, 2024 Subjective Patient seen and examined at bedside. Her also at bedside. She is sleepy but awake eval by voice. Denies any pain or discomfort. Has decreased appetite. Oxygen requirement of 2 L via nasal cannula Review of Systems Review of Systems: All systems reviewed & are unremarkable except as noted in Subjective Physical Exam Physical Exam: General- awake, not in distress, breathing with no effort or accessory muscle use Eyes- anicteric Neck- no JVD Lungs- clear breath sounds bilaterally, no rales/wheezes Heart- normal rate, regular rhythm; no murmurs Abdomen- normal bowel sounds, nondistended, soft, nontender Extremities-Dressing over the incision intact. No overlying soakage. Neuro- awake, non verbal, no new gross focal neurologic deficits Skin- warm & dry Results & Data Results & Data Vital Signs (Past 12 Hours) Vital Signs Temp Pulse Pulse Resp BP Pulse Ox O2 Del Method 09/21/24 10:35 36.7 C 105 H 19 104/68 95 Nasal Cannula 09/21/24 08:00 82 09/21/24 08:00 Nasal Cannula 09/21/24 07:51 36.8 C 107 H 19 157/61 H 93 Nasal Cannula 09/21/24 03:00 36.7 C 97 H 24 105/50 L 96 Nasal Cannula O2 Flow Rate 09/21/24 10:35 2 09/21/24 08:00 09/21/24 08:00 2 09/21/24 07:51 09/21/24 03:00 2
--- NOTE | 2024-09-22 04:01 | Electrocardiogram Report ---
Test Reason : Blood Pressure : */* mmHG Vent. Rate : 88 BPM Atrial Rate : 88 BPM P-R Int : 160 ms QRS Dur : 60 ms QT Int : 344 ms P-R-T Axes : 59 61 159 degrees QTcB Int : 417 ms Sinus rhythm with occasional Premature ventricular complexes Nonspecific ST and T wave abnormality Abnormal ECG When compared with ECG of 28-May-2022 12:06, Premature ventricular complexes are now Present Confirmed by Vinod Rodriguez ([id number] on 09/22/2024 4:01:03 AM Referred By: REFERRED SELF Confirmed By: Vinod Rodriguez
--- NOTE | 2024-09-22 04:01 | Electrocardiogram Report ---
Test Reason : Blood Pressure : */* mmHG Vent. Rate : 105 BPM Atrial Rate : 105 BPM P-R Int : 140 ms QRS Dur : 68 ms QT Int : 302 ms P-R-T Axes : 23 57 136 degrees QTcB Int : 399 ms Sinus tachycardia Nonspecific ST and T wave abnormality Abnormal ECG When compared with ECG of 15-Sep-2024 12:06, Premature ventricular complexes are no longer Present Confirmed by Vinod Rodriguez ([id number] on 09/22/2024 4:01:20 AM Referred By: REFERRED SELF Confirmed By: Vinod Rodriguez
[2024-09-22 07:35] LABS: Basophils # (auto) 0.03 K/uL (0.00-0.20); Basophils % (auto) 0.5 %; Eosinophils # (auto) 0.06 K/uL (0.00-0.50); Eosinophils % (auto) 1.1 %; Hematocrit (blood only) 25.6 % (37.0-47.0); Hemoglobin 8.4 g/dl (12.0-16.0); Immature Granulocytes # (auto) 0.04 K/uL (0.01-0.20); Immature Granulocytes % (auto) 0.7 %; Lymphocytes # (auto) 1.15 K/uL (1.20-3.40); Lymphocytes % (auto) 20.6 %; Mean Corpuscular Hemoglobin 28.3 pg (25.0-34.0); Mean Corpuscular Hgb Conc 32.8 g/dL (32.0-36.0); Mean Corpuscular Volume 86.2 fL (80.0-100.0); Mean Platelet Volume 9.6 fL (9.4-12.4); Monocytes # (auto) 0.46 K/uL (0.11-0.59); Monocytes % (auto) 8.3 %; Neutrophils # (auto) 3.83 K/uL (1.40-6.50); Neutrophils % (auto) 68.8 %; Platelet Count 224 K/uL (130-400); RDW Coefficient of Variation 13.3 % (11.5-14.5); RDW Standard Deviation 41.2 fL (36.4-46.3); Red Blood Count 2.97 M/uL (4.20-5.40); White Blood Count 5.57 K/ul (4.8-10.8)
[2024-09-22 07:49] LABS: BUN Creatinine Ratio 45.8 (10-20); Calcium 8.7 mg/dl (8.6-10.3); Creatinine Clr Calc Pharmacy 77.3 ml/min; Potassium 3.7 mmol/L (3.5-5.1)
--- NOTE | 2024-09-22 11:58 | Hospitalist Progress Note ---
Date of Service September 22, 2024 Assessment & Plan (1) Fracture of femoral neck, right: (2) Fall: (3) Vascular dementia: (4) CAD (coronary artery disease): (5) HLD (hyperlipidemia): Plan Right displaced subcapital neck fracture s/p Hemiarthroplasty Mechanical fall Age-related osteoporosis w current pathological fracture, right femur Acute Pulmonary Emboli Patient presented to the hospital with right sided displaced subcapital neck fracture. Postoperatively, patient was febrile, tachycardic and hypoxic; was transferred to ICU. CTA chest showed left-sided PE. Patient was started on heparin drip. Patient switched over to Eliquis on September 19, 2024 CAD HLD - Aspirin is stopped as patient is started on Eliquis; continue on Plavix and beta-capo - Metoprolol decreased to 25 mg BID from 50mg BID to prevent hypotension Demand ischemiahigh sensitive troponin was initially elevated and down trended gradually. Echo showed EF of 60 to 65% with grade 1 diastolic dysfunction Severe vascular dementia without behavioral disturbance - Does not appear she is on any dementia medications Acute blood loss anemia Hemoglobin down trended from 13.4 on 09/16 to 8.4 on 09/20/2024; likely secondary to surgery and initiation of anticoagulation. Stable Monitor hemoglobin for now. - requires feeding assistance DVT ppx: eliquis CODE: Full code Dispo:Possible DC over the weekend if patient's clinical status continues to be stable. Please note the above document was generated using voice recognition software. It may contain grammatical, syntax or spelling errors. Any formal questions or concerns about the content, text or information contained within the body of this dictation should be directly addressed to the provider for clarification Admission and Anticipated Discharge Date Admission Date: September 15, 2024 Physical Exam Physical Exam: General- awake, not in distress, breathing with no effort or accessory muscle use Eyes- anicteric Neck- no JVD Lungs- clear breath sounds bilaterally, no rales/wheezes Heart- normal rate, regular rhythm; no murmurs Abdomen- normal bowel sounds, nondistended, soft, nontender Extremities-Dressing over the incision intact. No overlying soakage. Neuro- awake, non verbal, no new gross focal neurologic deficits Skin- warm & dry Results & Data Results & Data Vital Signs (Past 12 Hours) Vital Signs Temp Pulse Pulse Resp BP Pulse Ox O2 Del Method 09/22/24 08:00 36.8 C 98 H 20 130/72 96 Nasal Cannula 09/22/24 07:50 Room Air 09/22/24 03:00 37.0 C 94 H 19 125/68 94 Nasal Cannula 09/22/24 00:26 96 H
--- NOTE | 2024-09-22 12:20 | Hospitalist Progress Note ---
Date of Service September 22, 2024 Assessment & Plan (1) Fracture of femoral neck, right: (2) Fall: (3) Vascular dementia: (4) CAD (coronary artery disease): (5) HLD (hyperlipidemia): Plan Right displaced subcapital neck fracture s/p Hemiarthroplasty Mechanical fall Age-related osteoporosis w current pathological fracture, right femur Acute Pulmonary Emboli Patient presented to the hospital with right sided displaced subcapital neck fracture. Postoperatively, patient was febrile, tachycardic and hypoxic; was transferred to ICU. CTA chest showed left-sided PE. Patient was started on heparin drip. Patient switched over to Eliquis on September 19, 2024 CAD HLD - Aspirin is stopped as patient is started on Eliquis; continue on Plavix and beta-capo - Metoprolol decreased to 25 mg BID from 50mg BID to prevent hypotension Demand ischemiahigh sensitive troponin was initially elevated and down trended gradually. Echo showed EF of 60 to 65% with grade 1 diastolic dysfunction Severe vascular dementia without behavioral disturbance - Does not appear she is on any dementia medications Acute blood loss anemia Hemoglobin down trended from 13.4 on 09/16 to 8.4 on 09/20/2024; likely secondary to surgery and initiation of anticoagulation. Stable Monitor hemoglobin for now. - requires feeding assistance DVT ppx: eliquis CODE: Full code Dispo:Dc when bed is avaiable. Please note the above document was generated using voice recognition software. It may contain grammatical, syntax or spelling errors. Any formal questions or concerns about the content, text or information contained within the body of this dictation should be directly addressed to the provider for clarification Admission and Anticipated Discharge Date Admission Date: September 15, 2024 Subjective Patient seen and examined at bedside. She is more interactive today and awake. Denies any pain or discomfort. Review of Systems Review of Systems: All systems reviewed & are unremarkable except as noted in Subjective Physical Exam Physical Exam: General- awake, not in distress, breathing with no effort or accessory muscle use Eyes- anicteric Neck- no JVD Lungs- clear breath sounds bilaterally, no rales/wheezes Heart- normal rate, regular rhythm; no murmurs Abdomen- normal bowel sounds, nondistended, soft, nontender Extremities-Dressing over the incision intact. No overlying soakage. Neuro- awake, non verbal, no new gross focal neurologic deficits Skin- warm & dry Results & Data Results & Data Vital Signs (Past 12 Hours) Vital Signs Temp Pulse Pulse Resp BP Pulse Ox O2 Del Method 09/22/24 08:00 36.8 C 98 H 20 130/72 96 Nasal Cannula 09/22/24 07:50 Room Air 09/22/24 03:00 37.0 C 94 H 19 125/68 94 Nasal Cannula 09/22/24 00:26 96 H
[2024-09-22] MEDS: bisacodyL 10 MG SUPP PR SCH (13:05)
[2024-09-23 06:25] LABS: Basophils # (auto) 0.03 K/uL (0.00-0.20); Basophils % (auto) 0.4 %; Eosinophils # (auto) 0.08 K/uL (0.00-0.50); Eosinophils % (auto) 1.1 %; Hematocrit (blood only) 25.6 % (37.0-47.0); Hemoglobin 8.3 g/dl (12.0-16.0); Immature Granulocytes # (auto) 0.06 K/uL (0.01-0.20); Immature Granulocytes % (auto) 0.9 %; Lymphocytes # (auto) 1.31 K/uL (1.20-3.40); Lymphocytes % (auto) 18.8 %; Mean Corpuscular Hemoglobin 28.1 pg (25.0-34.0); Mean Corpuscular Hgb Conc 32.4 g/dL (32.0-36.0); Mean Corpuscular Volume 86.8 fL (80.0-100.0); Mean Platelet Volume 9.5 fL (9.4-12.4); Monocytes # (auto) 0.63 K/uL (0.11-0.59); Monocytes % (auto) 9.1 %; Neutrophils # (auto) 4.85 K/uL (1.40-6.50); Neutrophils % (auto) 69.7 %; Platelet Count 277 K/uL (130-400); RDW Coefficient of Variation 13.7 % (11.5-14.5); RDW Standard Deviation 42.8 fL (36.4-46.3); Red Blood Count 2.95 M/uL (4.20-5.40); White Blood Count 6.96 K/ul (4.8-10.8)
[2024-09-23 06:44] LABS: BUN Creatinine Ratio 55.8 (10-20); Calcium 8.8 mg/dl (8.6-10.3); Creatinine Clr Calc Pharmacy 70.5 ml/min; Potassium 4.1 mmol/L (3.5-5.1)
--- NOTE | 2024-09-23 13:02 | Hospitalist Progress Note ---
Date of Service September 23, 2024 Assessment & Plan (1) Fracture of femoral neck, right: (2) Fall: (3) Vascular dementia: (4) CAD (coronary artery disease): (5) HLD (hyperlipidemia): Plan Right displaced subcapital neck fracture s/p Hemiarthroplasty Mechanical fall Age-related osteoporosis w current pathological fracture, right femur Acute Pulmonary Emboli Patient presented to the hospital with right sided displaced subcapital neck fracture. Postoperatively, patient was febrile, tachycardic and hypoxic; was transferred to ICU. CTA chest showed left-sided PE. Patient was started on heparin drip. Patient switched over to Eliquis on September 19, 2024 CAD HLD - Aspirin is stopped as patient is started on Eliquis; continue on Plavix and beta-capo - Metoprolol decreased to 25 mg BID from 50mg BID to prevent hypotension Demand ischemiahigh sensitive troponin was initially elevated and down trended gradually. Echo showed EF of 60 to 65% with grade 1 diastolic dysfunction Severe vascular dementia without behavioral disturbance - Does not appear she is on any dementia medications Acute blood loss anemia Hemoglobin down trended from 13.4 on 09/16 to 8.4 on 09/20/2024; likely secondary to surgery and initiation of anticoagulation. Stable Monitor hemoglobin for now. - requires feeding assistance DVT ppx: eliquis CODE: Full code Dispo:Dc when bed is avaiable. Please note the above document was generated using voice recognition software. It may contain grammatical, syntax or spelling errors. Any formal questions or concerns about the content, text or information contained within the body of this dictation should be directly addressed to the provider for clarification Admission and Anticipated Discharge Date Admission Date: September 15, 2024 Subjective Patient seen and examined. She is comfortable; not in distress. at bedside; reports that she ate breakfast better compared to previous days. Review of Systems Review of Systems: All systems reviewed & are unremarkable except as noted in Subjective Physical Exam Physical Exam: General- awake, not in distress, breathing with no effort or accessory muscle use Eyes- anicteric Neck- no JVD Lungs- clear breath sounds bilaterally, no rales/wheezes Heart- normal rate, regular rhythm; no murmurs Abdomen- normal bowel sounds, nondistended, soft, nontender Extremities-Dressing over the incision intact. No overlying soakage. Neuro- awake, non verbal, no new gross focal neurologic deficits Skin- warm & dry Results & Data Results & Data Vital Signs (Past 12 Hours) Vital Signs Temp Pulse Pulse Resp BP Pulse Ox O2 Del Method 09/23/24 11:00 36.6 C 119 H 20 128/76 96 Room Air 09/23/24 07:36 83 09/23/24 03:00 36.5 C 108 H 19 118/72 94 Room Air
[2024-09-24 07:34] VITALS: RESP 18; O2SAT 95
[2024-09-24 11:35] VITALS: TEMP 98.6
--- NOTE | 2024-09-24 12:58 | Discharge Summary ---
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 is present at bedside and supports the history. He states that he heard her get up to use the bathroom in the middle of the night for which she is typically ambulatory without assistive devices, fell and he was able to help her get back to bed. This morning when she attempted to stand and ambulate she was unable to do so and slumped down to the floor. He could not get the patient back up and therefore called EMS where they brought her here to the hospital for evaluation. On imaging she is found to have right displaced subcapital femoral neck fracture.The patient herself is unable to provide any history due to severe dementia. Her was called over the phone. He would like her to be a full code. States that she is able to feed herself home up until the last few bites and then he helps feed her the rest of meals. She did not get any of her morning medications today. Principal Diagnosis Right displaced subcapital neck fracture s/p Hemiarthroplasty Mechanical fall Age-related osteoporosis w current pathological fracture, right femur Acute Pulmonary Emboli Discharge Exam General- awake, not in distress, breathing with no effort or accessory muscle use Eyes- anicteric Neck- no JVD Lungs- clear breath sounds bilaterally, no rales/wheezes Heart- normal rate, regular rhythm; no murmurs Abdomen- normal bowel sounds, nondistended, soft, nontender Extremities-Dressing over the incision intact. No overlying soakage. Neuro- awake, non verbal, no new gross focal neurologic deficits Skin- warm & dry Discharge Data Allergies Allergy/AdvReac Type Severity Reaction Status Date / Time Penicillins Allergy Unknown SWELLING Verified 09/15/24 14:00 Consultations 09/15/24 14:30 ED Decision to Admit Stat 09/15/24 15:47 Consult Orthopedic Surgery Routine Procedures Performed Operation Date: 09/16/24 07:30 Actual Procedures p Right Hip Hemiarthroplasty(Right) - Remi Shetty MD Ordered Studies 09/18/24 07:30 CT angio chest PE protocol Stat Hospital Course (1) Fracture of femoral neck, right: (2) Fall: (3) Vascular dementia: (4) CAD (coronary artery disease): (5) HLD (hyperlipidemia): Plan Right displaced subcapital neck fracture s/p Hemiarthroplasty Mechanical fall Age-related osteoporosis w current pathological fracture, right femur Acute Pulmonary Emboli Patient presented to the hospital with right sided displaced subcapital neck fracture. Postoperatively, patient was febrile, tachycardic and hypoxic; was transferred to ICU. CTA chest showed left-sided PE. Patient was started on heparin drip. Patient switched over to Eliquis on September 19, 2024 PT OT evaluation was done; patient was recommended to go to rehab. Her hemoglobin decreased to around 8 after surgery and is stabilized. Patient has history of severe dementia and ambulatory dysfunction prior to the fall that led to the fracture. I discussed with patient's that she is at her risk of being bedbound, nonambulatory given the recent event. She has also at high risk of developing pneumonia, UTI, recurrent falls, pressure ulcer. He verbalized understanding. He would like to see how patient does at rehab. Patient will need at least 6 months of anticoagulation; the duration of anticoagulation may need to be increased depending on her ambulatory status. Instruction regarding trial of void was also placed in the discharge instructions. Please note the above document was generated using voice recognition software. It may contain grammatical, syntax or spelling errors. Any formal questions or concerns about the content, text or information contained within the body of this dictation should be directly addressed to the provider for clarification Total Time Total Time Spent Total Time Spent (In Minutes): 45 Total Time Includes: Examination of the Patient, Discharge Planning, Medication Reconciliation, Communication With Other Providers and Other Discharge Plan Discharge Items Patient Disposition: Transfer Long-Term Fac Reason For Visit: R FEMORAL NECK FRACTURE Discharge Diagnosis: Right Hip Replacement for Fracture Activity: Per Instructions section Activity Comment: Follow/Obey hip precautions at all times. Weightbearing: Full weightbearing Weightbearing Comment: Weightbear as tolerated obeying hip precautions at all times. Non-emergency contact: Primary Care Provider Call non-emergency contact if: you have any medication questions and your symptoms worsen Follow-up/Referrals: Remi Shetty MD [Physician] - (Orthopedic follow-up 2-3 weeks from surgery date.) Jennifer Huynh DO [Primary Care Provider] - Diet: Regular Addtl Attending Provider Instructions: You were admitted to the hospital due to fracture of right hip and underwent surgery by Dr. Shetty on 09/16/2024. You are found to have blood clot in your lungs. Following medication have been prescribed; Take Eliquis 10 mg twice a day for 7 days(Until September 26, 2024) Then, start taking Eliquis 5 mg twice a day from September 27, 2024 You will need to be on blood thinner for at least 6 months. The duration might need to be prolonged if you are not ambulatory. Take metoprolol 25 mg twice a day Take Tylenol 500 mg every 6 hours for pain control Stop taking aspirin Remove Pabon and do trial of void after patient is more active and mobile. Tentative trial of void on September 26, 2024 You are placed on bowel regimen with oral MiraLAX and bisacodyl per rectal. These can be changed to as needed after you have regular bowel movement. ACTIVITY RECOMMENDATIONS: Diet: * You may resume previous diet. Physical Therapy: * Aggressive physical therapy is not usually needed. You will learn to take care of yourself safely and walk. * Follow the "Hip Precautions Instructions." * In some cases, the social media strategist at the hospital will arrange to have a therapist come to your house for the first couple of weeks to help you learn these skills. * You need to practice on your own or with the help of a family member as needed. * When you learn these skills, most of the therapy can be done on your own. Home Exercise: * You were shown a series of exercises in the hospital. Do these exercises three to four times each day including the exercises you were shown in physical therapy. Walking: * Get up and walk several times each day. For the first four weeks, try not to stand or walk for more than one hour at a time. If you do stand or walk for more than one hour, you will not hurt anything, but your leg will likely swell. * As you feel comfortable, you may change from the walker or crutches to a cane and then to independent walking. "VERY IMPORTANT TO READ AND REVIEW" Pain: * The immediate post-operative period after hip replacement surgery is often quite painful. * You are given a prescription for pain medicine. You should take it, as directed, when you need it, especially before physical therapy and before going to bed. Pain that interferes with sleep is very common and can last several months. * You will likely need pain medicine for the first two to four weeks. It will not stop all of the pain. The pain will lessen and as you feel better, you may change to milder pain medicine such as Tylenol. * The most common side effects of pain medicine are nausea and constipation, so don't take more than you need. SPECIAL CARE INSTRUCTIONS: TEDs/Elastic Stockings: * The white elastic stockings help limit swelling and prevent blood clots from forming in your legs. The more you wear them, the more they work. * Wear them for six weeks. Incision Site Care: * Remove dressing postoperative day 2 and then shower. Keep direct shower pressure off the incision site. * After showering, cover adiel with dry gauze and change daily or more frequently if the dressing is getting saturated with drainage. * May completely stop using bandage if wound is dry and no drainage * Adiel are removed between 2 and 3 weeks post-op. If your follow-up appointment is made before 2 weeks, please have your appointment re- scheduled. It is too early to remove the adiel. Prevention of Infection: * Take antibiotics one hour before any dental cleaning, dental work, urological procedure, gastrointestinal procedure or any invasive surgery in order to prevent your new joint from getting infected. * You may get the antibiotics from the doctor performing the procedure or you may call our office at before and we will call in a prescription to the pharmacy of your choice. Things to Watch For: * Drainage from the incision site that occurs more than one week after your surgery. * Severely increased leg pain or swelling. * Increased redness at the incision site. * Fever above 102 degrees Fahrenheit. * Unusual chest pain or shortness of breath. * Unusual pain or burning with urination. Call [facility] at with any of the above problems or if you have any questions about your medicines or recovery. FOLLOW UP VISIT: Make an appointment to see your doctor for approximately two weeks after surgery for a progress check and staple removal by calling the office at . Pending Studies at Discharge: No Stand-Alone Forms: My [facility] Skilled Items Patient informed of condition?: Yes DNR: No Discharge Level of Care: Skilled Communicable Disease: No Discharge Prognosis: Stable Lines: None Urinary Catheter: Yes Medications and DC Order Prescriptions: New polyethylene glycol 3350 [Miralax] 17 gram Powder In Packet 17 g PO DAILY Qty: 30 0RF acetaminophen [Tylenol Extra Strength] 500 mg Tablet 500 mg PO Q6H 120 Days Qty: 480 0RF ergocalciferol (vitamin D2) 1,250 mcg (50,000 unit) Capsule 1,250 mcg PO Q7D 35 Days Qty: 5 0RF metoprolol tartrate 25 mg Tablet 25 mg PO BID 60 Days Qty: 120 0RF Eliquis 5 mg tablet See Taper PO BID Qty: 60 0RF Taper: Taper, Blank 10 mg TWICE A DAY for 3 Days 5 mg TWICE A DAY for 30 Days polyethylene glycol 3350 [Miralax] 17 gram/dose powder 17 g PO BID Qty: 238 0RF bisacodyl 10 mg suppository 10 mg MA DAILY 7 Days Qty: 12 0RF Continued atorvastatin 40 mg tablet 40 mg PO HS 30 Days Qty: 30 0RF clopidogrel 75 mg tablet 75 mg PO DAILY 30 Days Qty: 30 0RF calcium carbonate 500 mg calcium (1,250 mg) Tablet 1,000 mg PO DAILY Qty: 60 0RF Discontinued metoprolol tartrate 50 mg tablet 50 mg PO BID aspirin 81 mg Tablet,Delayed Release (Dr/Ec) 81 mg PO DAILY cholecalciferol (vitamin D3) [Vitamin D3] 25 mcg (1,000 unit) Tablet 25 mcg PO DAILY Discharge Orders: Discharge Order (Routine); Ordered 09/24/24 Ordered By: Hipolito Urias Admission Data Admit Date/Time: 09/15/24 14:28 Attending Provider: Hipolito Urias Admit Provider: Silvio Sams Primary Care Provider: Jennifer Huynh Other Providers: Geronimo,Care; Silvio Sams; Remi Shetty
[2024-09-24 13:46] VITALS: BP 108/70; PULSE 22
--- NOTE | 2024-09-26 13:11 | Emergency Department Note ---
History of Present Illness General Chief complaint: Hip Pain Time Seen by Provider: 09/15/24 12:05 History of Present Illness Maximum Pain Intensity: 0 This 83 year old female with a history of CAD, Elevated lipids, osteoporosis, severe vascular dementia, history of basal cell carcinoma, and tinnitus, who lives at home with her , presents after a fall she sustained at some point overnight. her is present at bedside and provides the history. He states that he heard her get up to use the bathroom in the middle of the night for which she is typically ambulatory without assistive devices, fell and he was able to help her get back to bed. This morning when she attempted to get out of bed and ambulate she was unable to do so and slumped down to the floor. He could not get the patient back up and therefore called EMS who they brought her to the hospital for evaluation.The patient herself is unable to provide any history due to severe dementia. No prior history of significant hip injury, although he did note she was having difficulty walking on this leg over the last 2 months. She did not get any of her morning medications today. Home Medications Medication Instructions Recorded Confirmed Type acetaminophen 500 mg tablet 500 mg PO Q6H 120 days #480 tabs 09/20/24 Rx (Tylenol Extra Strength) atorvastatin 40 mg tablet 40 mg PO HS 30 days #30 tabs 09/20/24 Rx calcium carbonate 1,000 mg (2 x 500 mg calcium 09/20/24 Rx (1,250 mg)) PO DAILY #60 tabs clopidogrel 75 mg tablet 75 mg PO DAILY 30 days #30 tabs 09/20/24 Rx ergocalciferol (vitamin D2) 1,250 1,250 mcg PO Q7D 35 days #5 caps 09/20/24 Rx mcg (50,000 unit) capsule metoprolol tartrate 25 mg tablet 25 mg PO BID 60 days #120 tabs 09/20/24 Rx polyethylene glycol 3350 17 gram 17 g PO DAILY #30 ea 09/20/24 Rx oral powder packet (Miralax) apixaban 5 mg tablet (Eliquis) See Taper PO BID #60 tabs 09/24/24 Rx bisacodyl 10 mg rectal suppository 10 mg ME DAILY 7 days #12 ea 09/24/24 Rx polyethylene glycol 3350 17 17 g PO BID #238 grams 09/24/24 Rx gram/dose oral powder (Miralax) Allergies Allergy/AdvReac Type Severity Reaction Status Date / Time Penicillins Allergy Unknown SWELLING Verified 09/15/24 14:00 Past Med/Surg History Problem List (Updated 09/27/24 @ 11:00 by Emiliano Kumar PA-C) Pulmonary embolism HLD (hyperlipidemia) CAD (coronary artery disease) Vascular dementia Fracture of femoral neck, right (Acute) Medical History Small bowel obstruction Syncope and collapse Fall Dementia Dizziness of unknown cause Surgical History Status post nasal surgery Nose reconstruction History of repair of inguinal hernia Hx of appendectomy Tubal ligation status Hx of hernia repair History of back surgery Hx laparoscopic cholecystectomy S/P hemorrhoidectomy H/O umbilical hernia repair H/O lysis of adhesions Hx of colonoscopy S/P cardiac cath Family History Father Pituitary tumor Mother Osteoporosis Social History Smoking Status: Former smoker Second Hand Exposure: No; Do You Dip or Chew Tobacco: No; Hx Alcohol Use: No Hx Substance Use: No Preferred Language: Swazi Communication Ability: sleeping Saturator Operator Required: No Beliefs That Will Affect Care: None marital status: Current Living Situation: Spouse Current Living Situation Comment: live with How many Children do You have: 0 Feels Safe at Home: Yes Assistive Devices: None Review of Systems Unobtainable due to cognitive status History was obtained from her . Physical Exam General: Frail, elderly female, in no acute distress. Laying in the bed. Alert and but not coherent. Skin: Warm and dry with fair turgor. No rashes. No ecchymosis or erythema. No appreciable edema at the hip. HEENT: Normocephalic atraumatic. Eyes PERRLA, EOMI. No conjunctiva or scleral injection. Ears TMs intact bilaterally with good light reflexes. No erythema or bulging. No hemotympanum. Canals are patent. Nares patent bilaterally without turbinate enlargement. No significant drainage. No epistaxis. Oropharynx without erythema or exudate. Uvula midline, oral mucosa moist. No lesions present. Heart: Heart RRR. No MGR. Peripheral pulses are 2+. Lungs: Lungs are clear to auscultation. No crackles rhonchi or wheezing. Good air movement. The patient is able to take a deep breath. Abdomen: Abdomen was inspected, auscultated, and palpated. Bowel sounds present x 4. Soft, nontender to palpation. No hepato-splenomegaly. No masses noted. No rebound. Musculoskeletal: Right leg is shortened and internally rotated. She has discomfort with palpation around the right hip. Motion of the ankle is intact. Motion of the hip and knee was not attempted due to suspected fracture. She has no discomfort with palpation over her cervical spine, thoracic spine, shoulders, elbows, wrists, knees, or ankles. Neurologic: Gross sensation is intact across the upper and lower extremities by soft touch. Course Administered Medications Discontinued Medications Acetaminophen (Acetaminophen 500 Mg Tab) 1,000 mg PO Q8H [facility] Stop: 10/15/24 15:59 Last Admin: 09/24/24 08:53 Dose: 1,000 mg Documented By: Admin: 09/23/24 20:34 Dose: 1,000 mg Documented By: Admin: 09/23/24 16:31 Dose: Not Given Documented By: Admin: 09/23/24 09:22 Dose: 1,000 mg Documented By: Admin: 09/22/24 23:37 Dose: 1,000 mg Documented By: Admin: 09/22/24 15:01 Dose: Not Given Documented By: Admin: 09/22/24 09:00 Dose: 1,000 mg Documented By: Admin: 09/22/24 00:31 Dose: 1,000 mg Documented By: Admin: 09/21/24 15:29 Dose: 1,000 mg Documented By: Admin: 09/21/24 08:24 Dose: 1,000 mg Documented By: Admin: 09/21/24 00:04 Dose: Not Given Documented By: Admin: 09/20/24 16:48 Dose: 1,000 mg Documented By: Admin: 09/20/24 08:34 Dose: 1,000 mg Documented By: Admin: 09/19/24 23:10 Dose: Not Given Documented By: Admin: 09/19/24 16:04 Dose: 1,000 mg Documented By: Admin: 09/19/24 09:00 Dose: 1,000 mg Documented By: Admin: 09/18/24 23:18 Dose: Not Given Documented By: Admin: 09/18/24 16:45 Dose: Not Given Documented By: Admin: 09/18/24 10:35 Dose: Not Given Documented By: Admin: 09/17/24 19:47 Dose: Not Given Documented By: Admin: 09/17/24 15:59 Dose: Not Given Documented By: Admin: 09/17/24 08:24 Dose: 1,000 mg Documented By: Admin: 09/16/24 23:15 Dose: Not Given Documented By: Admin: 09/16/24 15:01 Dose: 1,000 mg Documented By: Admin: 09/16/24 10:17 Dose: 1,000 mg Documented By: Admin: 09/15/24 23:37 Dose: Not Given Documented By: Admin: 09/15/24 17:29 Dose: 1,000 mg Documented By: AARONS Apixaban (Apixaban 5 Mg Tablet) 10 mg PO BID [facility] Stop: 09/25/24 21:01 Last Admin: 09/19/24 20:00 Dose: 10 mg Documented By: JENS Apixaban (Apixaban 5 Mg Tablet) 10 mg PO BID [facility] Stop: 09/26/24 09:01 Last Admin: 09/24/24 08:54 Dose: 10 mg Documented By: Admin: 09/23/24 20:36 Dose: 10 mg Documented By: Admin: 09/23/24 09:17 Dose: 10 mg Documented By: Admin: 09/22/24 19:30 Dose: 10 mg Documented By: Admin: 09/22/24 09:01 Dose: 10 mg Documented By: Admin: 09/21/24 20:21 Dose: 10 mg Documented By: Admin: 09/21/24 08:22 Dose: 10 mg Documented By: Admin: 09/20/24 20:04 Dose: 10 mg Documented By: Admin: 09/20/24 08:35 Dose: 10 mg Documented By: SHYAM Aspirin (Aspirin 81 Mg Ectab) 81 mg PO DAILY [facility] Stop: 10/16/24 08:59 Last Admin: 09/19/24 08:56 Dose: 81 mg Documented By: Admin: 09/18/24 07:51 Dose: 81 mg Documented By: Admin: 09/17/24 08:25 Dose: 81 mg Documented By: Admin: 09/16/24 08:25 Dose: Not Given Documented By: NICANOR Atorvastatin Calcium (Atorvastatin 40 Mg Tab) 40 mg PO HS [facility] Stop: 10/15/24 20:59 Last Admin: 09/23/24 20:36 Dose: 40 mg Documented By: Admin: 09/22/24 19:30 Dose: 40 mg Documented By: Admin: 09/21/24 20:21 Dose: 40 mg Documented By: Admin: 09/20/24 20:04 Dose: 40 mg Documented By: Admin: 09/19/24 20:00 Dose: 40 mg Documented By: Admin: 09/18/24 21:11 Dose: 40 mg Documented By: Admin: 09/17/24 19:47 Dose: Not Given Documented By: Admin: 09/16/24 20:45 Dose: Not Given Documented By: Admin: 09/15/24 19:46 Dose: 40 mg Documented By: ALEJA Bisacodyl (Bisacodyl 10 Mg Supp) 10 mg ME DAILY [facility] Stop: 10/22/24 12:29 Last Admin: 09/24/24 10:48 Dose: 10 mg Documented By: Admin: 09/23/24 09:22 Dose: 10 mg Documented By: Admin: 09/22/24 13:05 Dose: Not Given Documented By: ARSENIO Bupivacaine HCl/Epinephrine Bitart (Bupivacaine/Epinephrine 0.5% Mpf 1:200,000 30 Ml Vial) Confirm Administered Dose 60 ml .ROUTE .STK-MED ONE Stop: 09/16/24 07:27 Last Admin: 09/16/24 08:02 Dose: 60 ml Documented By: CAMERON Calcium Carbonate (Calcium Carbonate 1250mg Tab) 1 tab PO DAILY [facility] Stop: 10/16/24 08:59 Last Admin: 09/24/24 09:13 Dose: 1 tab Documented By: Admin: 09/23/24 09:17 Dose: 1 tab Documented By: Admin: 09/22/24 09:02 Dose: Not Given Documented By: Admin: 09/21/24 08:23 Dose: 1 tab Documented By: Admin: 09/20/24 08:35 Dose: 1 tab Documented By: Admin: 09/19/24 08:56 Dose: 1 tab Documented By: Admin: 09/18/24 10:35 Dose: Not Given Documented By: Admin: 09/17/24 08:25 Dose: 1 tab Documented By: Admin: 09/16/24 10:18 Dose: 1 tab Documented By: NICANOR Cefazolin Sodium (Cefazolin 330 Mg/Ml 1 Gm Vial) Confirm Administered Dose 1,980 mg .ROUTE .STK-MED ONE Stop: 09/16/24 07:33 Last Admin: 09/16/24 07:51 Dose: Not Given Documented By: AUGUSTINE Clopidogrel Bisulfate (Clopidogrel Bisulfate 75 Mg Tab) 75 mg PO DAILY [facility] Stop: 10/16/24 10:44 Last Admin: 09/24/24 08:55 Dose: 75 mg Documented By: Admin: 09/23/24 09:17 Dose: 75 mg Documented By: Admin: 09/22/24 09:03 Dose: 75 mg Documented By: Admin: 09/21/24 11:27 Dose: 75 mg Documented By: Admin: 09/20/24 08:35 Dose: 75 mg Documented By: Admin: 09/19/24 08:56 Dose: 75 mg Documented By: Admin: 09/18/24 07:50 Dose: 75 mg Documented By: Admin: 09/17/24 08:25 Dose: 75 mg Documented By: Admin: 09/16/24 11:13 Dose: 75 mg Documented By: NICANOR Ergocalciferol (Ergocalciferol 1250 Mcg (50,000 Units) Cap) 1,250 mcg PO Q7D [facility] Stop: 10/17/24 16:29 Last Admin: 09/17/24 16:47 Dose: 1,250 mcg Documented By: NICANOR Fentanyl Citrate (Fentanyl Citrate Pf 100 Mcg/2 Ml Vial) 25 mcg IV Q5M PRN PRN Reason: PACU Use Only-Pain Stop: 09/16/24 15:34 Last Admin: 09/16/24 09:25 Dose: 25 mcg Documented By: Admin: 09/16/24 09:20 Dose: 25 mcg Documented By: MANDEEP Heparin Sodium (Porcine) (Heparin Sod (Porcine) 1000 Unit/Ml) 4,000 units IV NOW ONE Stop: 09/18/24 09:55 Last Admin: 09/18/24 11:00 Dose: 4,000 units Documented By: HARSH Co-signed By: VARSHA Heparin Sodium/Dextrose (Heparin Iv Adult Wt-Based Standard W/ Initial Bolus Protocol) 1 each IV NOW STA; Protocol Stop: 09/18/24 09:40 Last Admin: 09/18/24 11:11 Dose: 1 each Documented By: HARSH Cefazolin Sodium (Ancef 2000mg) 2,000 mg in 15 mls @ 3.75 mls/min IV PREOP SANJUANA; Protocol Stop: 09/17/24 05:59 Last Admin: 09/16/24 07:15 Dose: 3.75 mls/min Documented By: MARY Sodium Chloride (Nss) 1,000 mls @ 80 mls/hr IV .[id number] [facility] Stop: 09/16/24 12:30 Last Infusion: 09/16/24 12:43 Dose: Infused Documented By: Admin: 09/15/24 23:37 Dose: 80 mls/hr Documented By: ALEJA Ceftriaxone Sodium (Rocephin) 1,000 mg in 50 mls @ 100 mls/hr IV Q24H [facility] Stop: 09/20/24 17:59 Last Infusion: 09/16/24 17:34 Dose: Infused Documented By: Admin: 09/16/24 17:01 Dose: 100 mls/hr Documented By: Infusion: 09/15/24 19:06 Dose: Infused Documented By: Admin: 09/15/24 18:28 Dose: 100 mls/hr Documented By: SANDEEP Cefazolin Sodium (Ancef 1000mg) 1,000 mg in 7.5 mls @ 2.5 mls/min IV Q8H [facility]; Protocol Stop: 09/16/24 23:02 Last Admin: 09/16/24 22:18 Dose: 2.5 mls/min Documented By: Admin: 09/16/24 14:04 Dose: 2.5 mls/min Documented By: NICANOR Sodium Chloride (Nss) 500 mls @ 999 mls/hr IV .Q31M ONE Stop: 09/16/24 13:40 Last Infusion: 09/16/24 14:05 Dose: Infused Documented By: Admin: 09/16/24 13:20 Dose: 999 mls/hr Documented By: NICANOR Sodium Chloride (Nss) 500 mls @ 999 mls/hr IV .Q31M ONE Stop: 09/16/24 14:27 Last Infusion: 09/16/24 14:40 Dose: Infused Documented By: Admin: 09/16/24 14:01 Dose: 999 mls/hr Documented By: NICANOR Sodium Chloride (Nss) 1,000 mls @ 80 mls/hr IV .[id number] [facility] Stop: 09/19/24 15:59 Last Infusion: 09/17/24 21:36 Dose: Infused Documented By: Admin: 09/17/24 16:03 Dose: 80 mls/hr Documented By: Infusion: 09/17/24 16:02 Dose: Infused Documented By: Admin: 09/17/24 04:06 Dose: 80 mls/hr Documented By: Infusion: 09/17/24 04:06 Dose: Infused Documented By: Admin: 09/16/24 15:58 Dose: 80 mls/hr Documented By: NICANOR Sodium Chloride (Nss) 500 mls @ 999 mls/hr IV .Q31M ONE Stop: 09/16/24 16:57 Last Infusion: 09/16/24 17:11 Dose: Infused Documented By: Infusion: 09/16/24 16:59 Dose: 80 mls/hr Documented By: Admin: 09/16/24 16:29 Dose: 999 mls/hr Documented By: NICANOR Potassium Chloride (K Michael / Wtr) 10 meq in 100 mls @ 100 mls/hr IV ONE ONE Stop: 09/17/24 20:27 Last Infusion: 09/17/24 21:37 Dose: Infused Documented By: Admin: 09/17/24 19:46 Dose: 100 mls/hr Documented By: ALEJA Albumin Human (Albumin 25%) 12.5 gm in 50 mls @ 50 mls/hr IV ONE ONE Stop: 09/17/24 21:03 Last Infusion: 09/17/24 22:28 Dose: Infused Documented By: Admin: 09/17/24 21:28 Dose: 50 mls/hr Documented By: LMP Magnesium Sulfate/Dextrose (Magnesium Sulfate / D5w) 1 gm in 100 mls @ 50 mls/hr IV Q2H [facility] Stop: 09/18/24 00:29 Last Infusion: 09/18/24 01:25 Dose: Infused Documented By: Admin: 09/17/24 23:22 Dose: 50 mls/hr Documented By: Infusion: 09/17/24 23:22 Dose: Infused Documented By: Admin: 09/17/24 21:26 Dose: 50 mls/hr Documented By: LMP Acetaminophen (Ofirmev) 1,000 mg in 100 mls @ 400 mls/hr IV NOW STA Stop: 09/17/24 21:25 Last Infusion: 09/17/24 21:41 Dose: Infused Documented By: Admin: 09/17/24 21:24 Dose: 400 mls/hr Documented By: YAMILE Ertapenem (Invanz 1000mg) 1,000 mg in 10 mls @ 2 mls/min IV Q24H [facility] Stop: 09/24/24 21:59 Last Admin: 09/20/24 21:22 Dose: 2 mls/min Documented By: Admin: 09/19/24 21:00 Dose: 2 mls/min Documented By: KDElvira Admin: 09/18/24 21:11 Dose: 2 mls/min Documented By: Admin: 09/17/24 22:37 Dose: 2 mls/min Documented By: YAMILE Albumin Human (Albumin 25%) 12.5 gm in 50 mls @ 50 mls/hr IV ONE ONE Stop: 09/18/24 03:09 Last Infusion: 09/18/24 05:47 Dose: Infused Documented By: Admin: 09/18/24 03:27 Dose: 50 mls/hr Documented By: LMP Heparin Sodium/Dextrose (Heparin 45295 Unit/500 Ml D5w) 25,000 units in 500 mls @ 17 mls/hr IV .Q24H [facility]; Protocol Stop: 09/19/24 19:00 Last Titration: 09/19/24 18:53 Dose: Infused Documented By: JOANNE Co-signed By: JENS Titration: 09/19/24 16:21 Dose: 850 units/hr, 17 mls/hr Documented By: JOANNE Co-signed By: QUITA Titration: 09/19/24 15:08 Dose: 0 units/hr, 0 mls/hr Documented By: JOANNE Co-signed By: QUITA Admin: 09/19/24 11:50 Dose: 950 units/hr, 19 mls/hr Documented By: JOANNE Co-signed By: JET Titration: 09/19/24 11:50 Dose: Infused Documented By: JOANNE Co-signed By: JET Titration: 09/19/24 07:31 Dose: 950 units/hr, 19 mls/hr Documented By: JOANNE Co-signed By: JET Titration: 09/19/24 07:20 Dose: 1,000 units/hr, 20 mls/hr Documented By: JOANNE Co-signed By: JENS Titration: 09/18/24 19:15 Dose: 1,000 units/hr, 20 mls/hr Documented By: JENS Co-signed By: HARSH Admin: 09/18/24 10:58 Dose: 1,000 units/hr, 20 mls/hr Documented By: HARSH Co-signed By: MES Acetaminophen (Ofirmev) 1,000 mg in 100 mls @ 400 mls/hr IV NOW STA Stop: 09/18/24 23:00 Last Infusion: 09/18/24 23:19 Dose: Infused Documented By: Admin: 09/18/24 22:56 Dose: 400 mls/hr Documented By: KDL Ioversol (Optiray 320 125ml) 120 ml IV ONCE ONE Stop: 09/18/24 09:05 Last Admin: 09/18/24 09:05 Dose: 120 ml Documented By: BRM Ipratropium [place] (Ipratropium [place] Neb Soln 0.02% 0.5mg/2.5ml Vial) 0.5 mg INH NOW STA Stop: 09/17/24 20:01 Last Admin: 09/17/24 20:42 Dose: 0.5 mg Documented By: EML Levalbuterol HCl (Levalbuterol 1.25 Mg/3 Ml Neb) 1.25 mg NEB NOW STA Stop: 09/17/24 20:01 Last Admin: 09/17/24 20:42 Dose: 1.25 mg Documented By: EML Metoprolol Tartrate (Metoprolol Tartrate 50 Mg Tab) 50 mg PO BID [facility] Stop: 10/15/24 20:59 Last Admin: 09/16/24 10:18 Dose: 50 mg Documented By: Admin: 09/15/24 19:46 Dose: 50 mg Documented By: ALEJA Metoprolol Tartrate (Metoprolol Tartrate 25 Mg Tab) 12.5 mg PO BID [facility] Stop: 10/17/24 08:59 Last Admin: 09/17/24 19:47 Dose: Not Given Documented By: Admin: 09/17/24 08:26 Dose: Not Given Documented By: NICANOR Metoprolol Tartrate (Metoprolol Tartrate 1 Mg/Ml Vial) 2.5 mg IV NOW STA Stop: 09/17/24 21:40 Last Admin: 09/17/24 21:53 Dose: 2.5 mg Documented By: YAMILE Metoprolol Tartrate (Metoprolol Tartrate 25 Mg Tab) 25 mg PO BID [facility] Stop: 10/18/24 08:59 Last Admin: 09/24/24 08:55 Dose: 25 mg Documented By: Admin: 09/23/24 20:36 Dose: 25 mg Documented By: Admin: 09/23/24 09:17 Dose: 25 mg Documented By: Admin: 09/22/24 19:30 Dose: 25 mg Documented By: Admin: 09/22/24 09:02 Dose: 25 mg Documented By: Admin: 09/21/24 20:22 Dose: 25 mg Documented By: Admin: 09/21/24 08:22 Dose: 25 mg Documented By: Admin: 09/20/24 20:05 Dose: 25 mg Documented By: Admin: 09/20/24 08:35 Dose: 25 mg Documented By: Admin: 09/19/24 20:00 Dose: 25 mg Documented By: Admin: 09/19/24 08:56 Dose: 25 mg Documented By: Admin: 09/18/24 21:10 Dose: 25 mg Documented By: Admin: 09/18/24 07:52 Dose: 25 mg Documented By: HARSH Miscellaneous (Pending Order) 1 each N/A ONE ONE Stop: 09/19/24 19:01 Last Admin: 09/19/24 18:39 Dose: 1 each Documented By: BT Morphine Sulfate (Morphine Sulfate 2 Mg/Ml Carp) 2 mg IV Q4H PRN PRN Reason: Severe Pain (Scale 7, 8, 9,10) Stop: 09/29/24 15:46 Last Admin: 09/17/24 21:17 Dose: 2 mg Documented By: LMP Polyethylene Glycol (Polyethylene (Miralax) 17 Gm Pack) 17 gm PO Q6 [facility] Stop: 10/18/24 11:59 Last Admin: 09/24/24 11:22 Dose: Not Given Documented By: Admin: 09/24/24 05:50 Dose: Not Given Documented By: Admin: 09/23/24 23:34 Dose: Not Given Documented By: Admin: 09/23/24 17:25 Dose: Not Given Documented By: Admin: 09/23/24 11:43 Dose: Not Given Documented By: Admin: 09/23/24 06:13 Dose: Not Given Documented By: Admin: 09/22/24 23:38 Dose: 17 gm Documented By: Admin: 09/22/24 18:16 Dose: Not Given Documented By: Admin: 09/22/24 11:08 Dose: Not Given Documented By: Admin: 09/22/24 05:54 Dose: Not Given Documented By: Admin: 09/22/24 00:28 Dose: Not Given Documented By: Admin: 09/21/24 16:17 Dose: Not Given Documented By: Admin: 09/21/24 11:28 Dose: Not Given Documented By: Admin: 09/21/24 05:26 Dose: Not Given Documented By: Admin: 09/20/24 23:29 Dose: Not Given Documented By: Admin: 09/20/24 17:51 Dose: Not Given Documented By: Admin: 09/20/24 12:42 Dose: Not Given Documented By: Admin: 09/20/24 05:07 Dose: Not Given Documented By: Admin: 09/19/24 23:10 Dose: Not Given Documented By: Admin: 09/19/24 17:53 Dose: Not Given Documented By: Admin: 09/19/24 11:50 Dose: 17 gm Documented By: Admin: 09/19/24 05:02 Dose: Not Given Documented By: Admin: 09/18/24 23:19 Dose: Not Given Documented By: Admin: 09/18/24 17:33 Dose: Not Given Documented By: Admin: 09/18/24 11:12 Dose: Not Given Documented By: HARSH Potassium Chloride (Potassium Chloride 10 Meq Tabcr) 10 meq PO NOW STA Stop: 09/17/24 19:28 Last Admin: 09/17/24 19:32 Dose: Not Given Documented By: ALEJA Vitamin D (Cholecalciferol 25 Mcg (1000 Units) Tab) 25 mcg PO DAILY [facility] Stop: 10/16/24 08:59 Last Admin: 09/17/24 08:25 Dose: 25 mcg Documented By: Admin: 09/16/24 10:18 Dose: 25 mcg Documented By: NICANOR Medical Decision Making Differential Diagnosis Hip fracture contusion, hip dislocation, pelvic fracture Medical Records Attestation: I reviewed the patient's medical records. Home Medications Current Medication List: was personally reviewed by me Laboratory Data CBC obtained today shows a mildly elevated white count of 10.99. Normal H&H. Normal PT/INR. Chemistry panel shows normal electrolytes and normal BUN and creatinine. Glucose is elevated at 157. Normal LFTs. 09/23/24 06:01 09/23/24 06:01 Lab Results 09/15/24 Range/Units 12:20 WBC 10.99 H (4.8-10.8) K/ul RBC 5.19 (4.20-5.40) M/uL Hgb 14.9 (12.0-16.0) g/dl Hct 44.2 (37.0-47.0) % MCV 85.2 (80.0-100.0) fL MCH 28.7 (25.0-34.0) pg MCHC 33.7 (32.0-36.0) g/dL RDW Std Deviation 40.7 (36.4-46.3) fL RDW Coeff of Miller 13.1 (11.5-14.5) % Plt Count 169 (130-400) K/uL MPV 10.5 (9.4-12.4) fL Immature Gran % (Auto) 0.3 % Neut % (Auto) 91.7 % Lymph % (Auto) 4.1 % [place] % (Auto) 3.8 % Eos % (Auto) 0.0 % Baso % (Auto) 0.1 % Neut # (Auto) 10.08 H (1.40-6.50) K/uL Lymph # (Auto) 0.45 L (1.20-3.40) K/uL [place] # (Auto) 0.42 (0.11-0.59) K/uL Eos # (Auto) 0.00 (0.00-0.50) K/uL Baso # (Auto) 0.01 (0.00-0.20) K/uL Immature Gran # (Auto) 0.03 (0.01-0.20) K/uL PT 11.4 (9.0-12.0) Seconds INR 1.1 (0.9-1.1) Sodium 138 (136-145) mmol/L Potassium 3.6 (3.5-5.1) mmol/L Chloride 103 (98-107) mmol/L Carbon Dioxide 26 (21-32) mmol/L Anion Gap 9 (3-11) BUN 15 (6-23) mg/dl Creatinine 0.67 (0.6-1.2) mg/dl Est Cr Clr Drug Dosing 49.4 ml/min eGFR 86.13 BUN/Creatinine Ratio 22.4 H (10-20) Glucose 157 H (70-99(Fasting)) mg/dl Calcium 9.4 (8.6-10.3) mg/dl Total Bilirubin 0.9 (0.2-1.0) mg/dl Direct Bilirubin 0.1 (0-0.2) mg/dl AST 30 (13-39) U/L ALT 30 (7-52) U/L Alkaline Phosphatase 97 (34-104) U/L Total Protein 7.0 (6.0-8.3) gm/dl Albumin 4.1 (3.4-5.0) gm/dl Globulin 2.9 (2.5-4.0) gm/dl Albumin/Globulin Ratio 1.4 (0.9-2) Imaging Data My Impression: Radiographic imaging obtained today of the pelvis and right hip was interpreted by me and read by radiology. She has a femoral neck fracture of the right hip. No subluxation or dislocation is noted. Chest x-ray obtained today shows no fractures. Heart is normal size. No pleural effusion or pneumothorax. Blood Pressure Blood Pressure Findings: Elevated blood pressure Blood Pressure Disposition: further management by hospitalist MDM Narrative The patient was evaluated in C pod. Conservative care measures were discussed. She was placed on a cardiac specialist and remained in a normal sinus rhythm with a rate in the 70s. IV was established. Labs were obtained. Radiographic imaging of the pelvis and hip was obtained, confirming the femoral neck fracture. The patient is normally an ambulator in her home. Her would like her to be able to ambulate again. Because of this, [facility] orthopedics was consulted. They recommended admission with optimization from the hospitalist service in [facility] of surgery tomorrow. The hospitalist service was also consulted and admitted the patient. Please see that dictation for final management. The patient remained stable while in the ED. Care plan was discussed with Dr. Fuentes. Impression & Plan Fracture of femoral neck, right Discharge Plan Visit Data Chief Complaint: Hip Pain ED Provider: Fanny Fuentes ED Midlevel Provider: Emiliano Kumar Discharge Problem: Fracture of femoral neck, right Patient Disposition: Admitted As Inpatient Condition: Fair Discharge Instructions Interventions: ED Discharge Assessment Last Done: 09/15/24 15:05 Discharge Problem: Fracture of femoral neck, right Qualifiers: Encounter type: initial encounter Fracture type: closed Qualified Code(s): S 72.001A - Fracture of unspecified part of neck of right femur, initial encounter for closed fracture
== END 2024-09-24 13:48 | DRG 522 ==
LOC: ED 11:57 → SUATTDRO 14:28 → 3N 14:28 → 2S 09-17 20:52